=== PATIENT | female | born 1965 | race Caucasian/White ===

== ENCOUNTER 2016-12-27 22:42 | Inpatient (IN) | payer MEDICARE, MEDICAID ==
[2016-12-28] MEDS ORDERED: ASPIRIN 81 MG TABLET, CHEWABLE PO ONE (00:10)
[2016-12-28] MEDS ORDERED: MAG HYDROX/AL HYDROX/SIMETH SUSP 30 ML UDCUP PO ONE (00:12)
[2016-12-28] MEDS ORDERED: LIDOCAINE 2% VISCOUS SOLN 20 ML UDCUP PO ONE (00:12)
[2016-12-28] MEDS ORDERED: METOCLOPRAMIDE HCL ORAL SOLN 10 MG/10 ML UDCUP PO ONE (00:12)
--- NOTE | 2016-12-28 00:18 | ER Document Report ---
ED General - General Chief Complaint: Chest Pain Stated Complaint: UPPER BODY PAIN Mode of Arrival: Medic Information source: Patient Notes: Patient is a 51-year-old female with history of cerebral palsy and multiple medical problems who presents for evaluation of chest pain. History is somewhat limited secondary to difficulty understanding her speech secondary to her shoulder will cause a period however she does state that about 2-3 hours ago she developed central chest pain which radiated to her left shoulder while she was seated watching TV. No shortness of breath. She has had nausea and 2 episodes of vomiting. She does have some epigastric pain as well. She states that she quit smoking 2 weeks ago after the of her mother. Chart review demonstrates multiple ER visits over the past year for chest pain and a cardiac catheter in March 2015 that showed normal coronaries. She states that she has taken 1 aspirin today which is part of her daily medications. Her current pain level is 8 out of 10. TRAVEL OUTSIDE OF THE [place] IN LAST 30 DAYS: No - Related Data Allergies/Adverse Reactions: Iodinated Contrast Media - Oral and Allergy (Verified 09/13/16 19:12) ketorolac [From Toradol] Allergy (Verified 10/01/16 16:33) ondansetron [From Zofran (as hydrochloride)] Allergy (Verified 09/13/16 19:12) Sulfa (Sulfonamide Antibiotics) Allergy (Verified 09/13/16 19:12) sulfamethoxazole [From Septra] Allergy (Verified 09/13/16 19:12) trimethoprim [From Septra] Allergy (Verified 09/13/16 19:12) Past Medical History - General Information source: [facility] Records - Social History Smoking Status: Former Smoker Lives with: Family Family History: CAD, CVA, Other - arthritis - Past Medical History Cardiac Medical History: Reports: Hx Congestive Heart Failure, Hx Hypercholesterolemia, Hx Hypertension Pulmonary Medical History: Reports: Hx COPD, Hx Pneumonia - x2 Endocrine Medical History: Reports: Hx Hypothyroidism Renal/ Medical History: Reports: Hx Kidney Stones Malignancy Medical History: Reports: Hx Breast Cancer, Hx Lymphoma GI Medical History: Reports: Hx Gastroesophageal Reflux Disease Musculoskeltal Medical History: Reports Hx Arthritis Psychiatric Medical History: Reports: Hx Bipolar Disorder, Hx Depression Past Surgical History: Reports: Hx Appendectomy, Hx Genitourinary Surgery - Bladder tack, Hx Hysterectomy, Hx Kidney (Renal Surgery) - stone removal, Hx Tubal Ligation - Immunizations Immunizations up to date: Yes Hx Diphtheria, Pertussis, Tetanus Vaccination: Yes Hx Pneumococcal Vaccination: 10/05/09 Review of Systems - Review of Systems Constitutional: No symptoms reported. denies: Chills, Fever EENT: No symptoms reported Cardiovascular: See HPI Respiratory: See HPI. denies: Cough, Hurts to breathe, Hemoptysis, Short of breath Gastrointestinal: See HPI, Nausea, Vomiting Genitourinary: No symptoms reported. denies: Burning, Dysuria Musculoskeletal: No symptoms reported Skin: No symptoms reported Hematologic/Lymphatic: No symptoms reported Neurological/Psychological: No symptoms reported Physical Exam - Vital signs Vitals: Pulse Ox 98 12/27/16 23:00 - Notes Notes: PHYSICAL EXAMINATION: GENERAL: Well-appearing, well-nourished and in no acute distress. Pleasant and conversant, dysarthria baseline secondary to MS HEAD: Atraumatic, normocephalic. EYES: Pupils equal round and reactive to light, extraocular movements intact, sclera anicteric, conjunctiva are normal. ENT: nares patent, oropharynx clear without exudates. Moist mucous membranes. NECK: Normal range of motion, supple without lymphadenopathy LUNGS: Breath sounds clear to auscultation bilaterally and equal. No wheezes rales or rhonchi. HEART: Regular rate and rhythm without murmurs ABDOMEN: Soft, nontender, normoactive bowel sounds. No guarding, no rebound. No masses appreciated. EXTREMITIES: Normal range of motion, no pitting or edema. NEUROLOGICAL: Cranial nerves grossly intact. Moves all 4 extremities spontaneously and on command PSYCH: Normal mood, normal affect. SKIN: Warm, Dry, normal turgor, no rashes or lesions noted. Course - Re-evaluation Re-evalutation: 12/28/16 03:08 Patient reports increase in her chest pain now. I have ordered morphine for pain control and will repeat an EKG now. 12/28/16 07:18 Patient will be admitted for chest pain observation now that she is chest pain free. Her second troponin is negative and her EKG has remained without ischemic changes. - Vital Signs Vital signs: Temp Pulse Resp BP Pulse Ox 97.7 F 16 101/74 99 12/28/16 05:22 12/28/16 03:41 12/28/16 05:31 12/28/16 05:31 - Laboratory Result Diagrams: 12/28/16 00:06 12/28/16 01:03 Laboratory results interpreted by me: 12/28/16 12/28/16 00:06 01:03 RDW 14.6 H Eosinophils % 6.9 H Sodium 145.3 H Chloride 111 H AST 159 H ALT 158 H Alkaline Phosphatase 215 H - EKG Interpretation by Me Additional EKG results interpreted by me: 12/28/16 00:17 EKG at 2315 demonstrates normal sinus rhythm with a rate of 93. QRS and QTc intervals are within normal limits. There is no ST segment elevation or depression. 12/28/16 03:12 Repeat EKG at 0308 demonstrates normal sinus rhythm with a rate of 71. QRS and QTC intervals are within normal limits. There is no ST segment elevation or depression. There is no change from prior EKG this evening. Discharge - Discharge Clinical Impression: Transaminitis Chest pain Qualifiers: Chest pain type: unspecified Qualified Code(s): R07.9 - Chest pain, unspecified Admitting Provider: Hospitalist - Dr Rendon Unit Admitted: Telemetry
[2016-12-28 00:21] LABS: ABSOLUTE BASOPHILS # (AUTO) 0.1 10^3/uL (0.0-0.2); ABSOLUTE EOSINOPHILS # (AUTO) 0.4 10^3/uL (0.0-0.6); ABSOLUTE LYMPHOCYTES (AUTO) 1.7 10^3/uL (0.5-4.7); ABSOLUTE MONOCYTES (AUTO) 0.5 10^3/uL (0.1-1.4); BASOPHILS % (AUTO) 1.3 % (0-2); EOSINOPHILS % (AUTO) 6.9 % (0-6); HEMATOCRIT 37.7 % (36.0-47.0); HEMOGLOBIN 12.8 g/dL (12.0-15.5); HGB HCT DIFFERENCE 0.7; LYMPHOCYTES % (AUTO) 30.3 % (13-45); MEAN CORPUSCULAR HEMOGLOBIN 30.4 pg (27.0-33.4); MEAN CORPUSCULAR HGB CONC 33.8 g/dL (32.0-36.0); MEAN CORPUSCULAR VOLUME 90 fl (80-97); MONOCYTES % (AUTO) 9.3 % (3-13); RED BLOOD COUNT 4.19 10^6/uL (3.72-5.28); RED CELL DISTRIBUTION WIDTH 14.6 % (11.5-14.0); SEGMENTED NEUTROPHILS % (AUTO) 52.2 % (42-78); WHITE BLOOD COUNT 5.7 10^3/uL (4.0-10.5)
[2016-12-28 00:33] LABS: PROTHROMBIN TIME 12.8 SEC (11.4-15.4)
[2016-12-28 00:47] LABS: CREATINE KINASE MB 0.38 ng/mL (<4.55); TROPONIN I 0.018 ng/mL
[2016-12-28] MEDS ORDERED: PROMETHAZINE HCL INJ 25 MG/1 ML VIAL IV ONE (01:18)
[2016-12-28] MEDS ORDERED: OXYCODONE-ACETAMINOPHEN 5-325 MG TABLET PO ONE (01:19)
[2016-12-28 01:31] LABS: ALANINE AMINOTRANSFERASE 158 U/L (9-52); ALBUMIN 3.6 g/dL (3.5-5.0); ALKALINE PHOSPHATASE 215 U/L (38-126); ANION GAP 10 (5-19); ASPARTATE AMINO TRANSFERASE 159 U/L (14-36); BILIRUBIN,DIRECT 0.3 mg/dL (0.0-0.4); BILIRUBIN,TOTAL 0.3 mg/dL (0.2-1.3); BLOOD UREA NITROGEN 7 mg/dL (7-20); CALCIUM 9.4 mg/dL (8.4-10.2); CARBON DIOXIDE 24 mmol/L (22-30); CHLORIDE 111 mmol/L (98-107); CREATINE KINASE 47 U/L (30-135); GLUCOSE 100 mg/dL (75-110); POTASSIUM 3.9 mmol/L (3.6-5.0); SODIUM 145.3 mmol/L (137-145); TOTAL PROTEIN 6.3 g/dL (6.3-8.2)
[2016-12-28] MEDS ORDERED: PROMETHAZINE HCL INJ 25 MG/1 ML VIAL ONE ×2 (01:38→04:55)
[2016-12-28] MEDS ORDERED: NORMAL SALINE 1000 ML 1,000 ML IV ONE (02:43)
[2016-12-28] MEDS ORDERED: MORPHINE SULFATE 10 MG/ML INJ IV ONE (03:04)
[2016-12-28] MEDS ORDERED: MORPHINE SULFATE 10 MG/ML INJ ONE ×2 (03:05→04:44)
[2016-12-28] MEDS ORDERED: HYDROMORPHONE HCL INJ/PF 2 MG/ML AMPULE ONE (05:38)
[2016-12-28] MEDS ORDERED: HYDROMORPHONE HCL INJ/PF 2 MG/ML AMPULE IV ONE (05:40)
[2016-12-28] MEDS ORDERED: LORAZEPAM INJ 2 MG/1 ML VIAL IV ONE (05:58)
[2016-12-28] MEDS ORDERED: ACETAMINOPHEN 325 MG TABLET PO PRN (07:32)
--- NOTE | 2016-12-28 08:30 | PDOC H&P ---
History of Present Illness Admission Date/PCP: 12/28/16 06:27 [facility] [place] Patient complains of: Chest pain History of Present Illness: MARCO A SANCHEZ is a 51 year old female, with underlying cerebral palsy , and having suffered a prior stroke, with resulting right-sided weakness, who presents to the emergency room for evaluation of above complaint. Patient has been discussed with emergency room physician who evaluated the patient. Please refer to extensive documentation in the combination history and physical and discharge summary from November 02 of last year concerning patient seeking health care under more than 1 name and medical record number.. Please refer to emergency room physician's notes. Patient herself is a somewhat rambling historian . Approximately 2-3 hours prior to presentation to the emergency room, she developed central pressure-like chest pain that radiated to her left shoulder. Seem to increase with a deep breath or certain movements of her shoulder. No cough, or fever or chills. Nausea with 2 episodes of vomiting. Associated mild epigastric pain. Emergency room physician refers to multiple emergency room visits over the past year for chest pain and a reported negative heart catheterization in March 2015. Pain has been waxing and waning in the emergency room, with patient at some times denying pain altogether, and at other times stating that the pain has recurred. Patient admits to DVT in 1991, with physician subsequently stopping her systemic anticoagulation. Denies pulmonary embolus. Describes a seizure disorder, with her most recent episode 3 weeks ago. States she is on medication for same, but does not recall the specific medication. Denies any underlying biliary disease. Laboratory results are listed in [employer] and are reviewed. X-ray summary results are listed below, with full report(s) reviewed. . EKG's reviewed. Social history/personal habits: . Lives alone. On disability due to cerebral palsy. Half-pack of cigarettes per day. No alcohol or illicit drug use. Allergies/adverse reactions NKDA. Home medications Home medications initially autopopulated into [employer] may not accurately reflect patient's true medications, dosages, and/or frequencies. Unfortunately, patient uncertain of medications/dosages/frequencies. REVIEW OF SYSTEMS: Constitutional: No fever or chills. Eyes: Wears glasses. ENT: No swallowing problems or complaints. Partial hearing loss. Pulmonary: No current complaints. Cardiovascular: See history and present illness. Gastrointestinal: See history and present illness. Skin: No current complaints, including rashes. Hematologic: Easy bruising. Neurologic: Chronic decreased sensation in her lower extremities, right greater than left. Able to ambulate only with a walker Musculoskeletal: Joint pain from arthritis. Psychiatric: Anxiety depression; denies suicidal or homicidal ideation. Endocrine: No current complaints, including polyuria. Genitourinary: No current complaints, including dysuria. PHYSICAL EXAMINATION: Neither height nor weight are recorded on the chart. Temperature 97.7. Lipid pressure 111/79. 99% saturation on room air. Respirations are 20 and unlabored. Pulse 89 and regular. Female emergency room practical nursing teacher Amdiha is present. Outwardly well nourished though chronically ill-appearing female who appears a number of years older than her stated age. Rather anxious at times, although no marni agitation. Appears not to feel very well. Skin is warm and dry. No grossly obvious evidence of rash in areas of skin examined. No subcutaneous nodules palpated. ENT: Hearing grossly normal to normal conversation. Tongue midline on protrusion pink and slightly tacky. Mild to moderate speech impediment. Eyes: No scleral icterus. Pupils equal and reactive to light at 4 mm. [place] conjunctivae. No raccoon eyes. Neck is supple and nontender to gentle active range of motion and palpation. Midline trachea. No palpable thyroid nodule mass enlargement or tenderness. Lymphatic: No palpable cervical or clavicular nodes. Neck and lymphatic exams limited by patient body habitus. Psychiatric: Fair to reasonable insight into acute and chronic medical issues. Lungs: Auscultation reveals clear and equal breath sounds bilaterally. No use of accessory respiratory muscles. Cardiovascular: Heart regular rate and rhythm, without gallop murmur or rub. No carotid or abdominal aortic bruits. No ankle or pedal edema. palpable dorsalis pedis pulses. Abdomen: soft, slightly, distended nontender other than scant upper epigastric discomfort to palpation with positive bowel sounds. Unable to adequately evaluate abdomen for masses or organomegaly due to distention. Extremities: Feet are warm and dry. No calf tenderness to compression. No grossly obvious visual evidence of calf swelling. Gentle manipulation of lower extremities fails to reveal any obvious evidence of injury or instability to knees hips or ankles, although somewhat decreased range of motion, right lower extremity, due to combination of effects of prior stroke, along with cerebral palsy, per patient. Neurologic: Hand administrator pesticide 5 over 5 and symmetric. Moves upper extremities somewhat stiffly.. Patellar reflexes absent. Absent Babinski. Light touch is decreased at feet chronically, right > left.. Dorsiflexion and plantarflexion of left foot 5 / 5; plantar flexion of right foot 4 over 5 with minimal dorsiflexion. Past Medical History Cardiac Medical History: Reports: Congestive Heart Failure, DVT, Hyperlipidema, Hypertension Denies: Pulmonary Embolism Pulmonary Medical History: Reports: Chronic Obstructive Pulmonary Disease (COPD) , Pneumonia - x2 Neurological Medical History: Reports: Ischemic CVA - resulting right-sided weakness., Seizures, Other - cerebral palsy Endocrine Medical History: Reports: Hypothyroidism Denies: Diabetes Mellitus Type 1, Diabetes Mellitus Type 2, Hyperthyroidism Malignancy Medical History: Reports: Breast Cancer, Lymphoma GI Medical History: Reports: Gastroesophageal Reflux Disease Denies: Cirrhosis, Hepatitis Musculoskeltal Medical History: Reports: Arthritis Psychiatric Medical History: Reports: Bipolar Disorder, Depression, Tobacco Dependency Denies: Alcohol Dependency, Substance Abuse Infectious Medical History: Denies: Hepatitis B, Hepatitis C Past Surgical History Past Surgical History: Reports: Appendectomy, Hysterectomy, Tubal Ligation Social History Information Source: Patient, Emergency Med Personnel, [facility] Records Lives with: Alone Smoking Status: Current Every Day Smoker Frequency of Alcohol Use: None Hx Recreational Drug Use: No Hx Prescription Drug Abuse: No - Advance Directive Resuscitation Status: Full Code Surrogate healthcare decision maker:: uncertain Family History Family History: CAD, CVA, Other - arthritis Parental Family History Reviewed: Yes Children Family History Reviewed: Yes Sibling(s) Family History Reviewed.: Yes Medication/Allergy Home Medications: RX: Albuterol Sulfate [Proair HFA Inhalation Aerosol 8.5 gm MDI] 2 puff IH Q4HP PRN 12/28/16 RX: Gabapentin [Neurontin 300 mg Capsule] 300 mg PO TID 12/28/16 Melatonin/Pyridoxine HCl (B6) [Melatonin 10 mg Tablet] 1 each PO QHS #90 tab.mphase 01/03/17 RX: Alprazolam [Xanax 0.25 mg Tablet] 0.25 mg PO Q8 #30 tablet 01/03/17 RX: Aspirin [Ecotrin 81 mg EC Tablet] 81 mg PO DAILY #90 tabec 01/03/17 RX: Buspirone HCl [Buspar 10 mg Tablet] 10 mg PO TID #90 tablet 04/01/17 RX: Hydrocodone/Acetaminophen [[place] 5-325 mg Tablet] 1 tab PO Q4HP PRN #10 tablet 01/03/17 RX: Levothyroxine Sodium [Synthroid 0.05 mg Tablet] 0.05 mg PO DAILY tablet 10/21 Allergies/Adverse Reactions: Iodinated Contrast Media - Oral and Allergy (Verified 09/13/16 19:12) ketorolac [From Toradol] Allergy (Verified 12/28/16 07:54) ondansetron [From Zofran (as hydrochloride)] Allergy (Verified 09/13/16 19:12) Sulfa (Sulfonamide Antibiotics) Allergy (Verified 09/13/16 19:12) sulfamethoxazole [From Septra] Allergy (Verified 09/13/16 19:12) trimethoprim [From Septra] Allergy (Verified 09/13/16 19:12) Physical Exam Vital Signs: Temp Pulse Resp BP Pulse Ox 97.7 F 16 101/74 99 12/28/16 05:22 12/28/16 03:41 12/28/16 05:31 12/28/16 05:31 Results Impressions: Chest X-Ray 12/28/16 00:11 IMPRESSION: No acute radiographic finding in the chest. Abdomen Ultrasound 12/28/16 01:49 IMPRESSION: Contracted gallbladder with mild gallbladder wall thickening. Echogenic non-shadowing area within the gallbladder may represent artifact versus sludge. Positive sonographic Dickerson's sign, if clinical concern persists for acute cholecystitis, further evaluation with hepatobiliary scan can be obtained. Fatty infiltration of the liver. Assessment & Plan - Diagnosis (1) Abnormal ultrasound of abdomen Is this a current diagnosis for this admission?: YesPlan: Consider surgery consult. (2) Chest pain Qualifiers: Chest pain type: unspecified Qualified Code(s): R07.9 - Chest pain, unspecified Is this a current diagnosis for this admission?: YesPlan: Uncertain etiology or significance of same. Patient will be placed in observation bed under chest pain protocol. . Serial troponin's . lipid panel. Cardiology consult. I have strongly encouraged patient not to get out of bed without notifying staff , to avoid a fall with injury. Knee high SCDs for DVT prophylaxis. Along with subcutaneous heparin. Patient has been discussed in detail with daytime hospitalist team. Impression and plans were discussed with patient, who concurs. Time spent in evaluation and management of patient: 73 minutes. (3) Elevated LFTs Is this a current diagnosis for this admission?: Yes (4) COPD (chronic obstructive pulmonary disease) Qualifiers: COPD type: unspecified COPD Qualified Code(s): J44.9 - Chronic obstructive pulmonary disease, unspecified Is this a current diagnosis for this admission?: YesPlan: No evidence of acute exacerbation of same.Resume home medications as appropriate once these have been determined and reviewed. When necessary DuoNeb 's. (5) Hyperlipidemia Qualifiers: Hyperlipidemia type: unspecified Qualified Code(s): E78.5 - Hyperlipidemia, unspecified Is this a current diagnosis for this admission?: YesPlan: Lipid panel.Resume home medications as appropriate once these have been determined and reviewed. (6) Hypothyroid Qualifiers: Hypothyroidism type: unspecified Qualified Code(s): E03.9 - Hypothyroidism, unspecified Is this a current diagnosis for this admission?: YesPlan: TSH level. Resume home medications as appropriate once these have been determined and reviewed. (7) Personal history of DVT (deep vein thrombosis) Is this a current diagnosis for this admission?: Yes
[2016-12-28] MEDS ORDERED: NALOXONE HCL INJ/PF 0.4 MG/1 ML SDV IV PRN (08:33)
[2016-12-28] MEDS ORDERED: NICOTINE 14 MG/24 HR PATCH.TD24 TD PRN (08:50)
--- NOTE | 2016-12-28 08:51 | EKG REPORT ---
SEVERITY:- NORMAL ECG - SINUS RHYTHM : Confirmed by: Bridger Whitley MD 28-Dec-2016 08:51:10
--- NOTE | 2016-12-28 08:51 | EKG REPORT ---
SEVERITY:- BORDERLINE ECG - SINUS RHYTHM NONSPECIFIC ST-T CHANGES ANTEROSEPTAL LEADS : Confirmed by: Bridger Whitley MD 28-Dec-2016 08:51:00
--- NOTE | 2016-12-28 08:52 | EKG REPORT ---
SEVERITY:- NORMAL ECG - SINUS RHYTHM : Confirmed by: Bridger Whitley MD 28-Dec-2016 08:51:25
[2016-12-28] MEDS ORDERED: IPRATROPIUM/ALBUTEROL 0.5-2.5 MG/3 ML AMPUL NEB PRN (09:41)
[2016-12-28 10:03] LABS: APPEARANCE,URINE SLIGHTLY-CLOUDY; BILIRUBIN,URINE NEGATIVE (NEGATIVE); GLUCOSE, URINE NEGATIVE (NEGATIVE); KETONES,URINE NEGATIVE (NEGATIVE); LEUKOCYTE ESTERASE,URINE NEGATIVE (NEGATIVE); NITRITE,URINE NEGATIVE (NEGATIVE); PROTEIN,URINE NEGATIVE (NEGATIVE); UROBILINOGEN,URINE NEGATIVE mg/dL (<2.0)
[2016-12-28 10:18] LABS: URINE BARBITURATES SCREEN NEGATIVE; URINE METHADONE SCREEN NEGATIVE; URINE PHENCYCLIDINE SCREEN NEGATIVE
[2016-12-28 10:32] LABS: URINE OPIATES LOW UNCONFIRMED POSITIVE
[2016-12-28 10:48] LABS: ADD ON TESTING BLD IN LAB ACKNOWLEDGE
[2016-12-28 10:55] LABS: MAGNESIUM 1.9 mg/dL (1.6-2.3)
[2016-12-28 10:56] LABS: CHOLESTEROL 106.41 mg/dL (0-200); Direct HDL 32 mg/dL (>40); TRIGLYCERIDES 175 mg/dL (<150)
[2016-12-28 11:07] LABS: DIRECT LDL 49 mg/dL (<100)
[2016-12-28 11:08] LABS: ALCOHOL < 10 mg/dL (NONE DETECTED)
[2016-12-28] MEDS: ASPIRIN 81 MG TABLET, ENT COATED PO SCH (11:11)
[2016-12-28] MEDS: LEVOTHYROXINE SODIUM 0.05 MG TABLET PO SCH (11:11)
[2016-12-28] MEDS: HEPARIN SOD (PORCINE) 5,000 UNIT/ML 1 ML SYRINGE SUBCUT SCH ×2 (11:13→21:22)
[2016-12-28] MEDS ORDERED: ALBUTEROL SULFATE HFA (90 MCG/PUFF) 200 PUFF/8.5 GM MDI IH PRN (16:30)
[2016-12-28] MEDS ORDERED: IBUPROFEN 600 MG TABLET PO PRN (16:31)
[2016-12-28] MEDS ORDERED: ACETYLCYSTEINE INJ 6000 MG/30 ML IV PRN (16:32)
[2016-12-28] MEDS: LANSOPRAZOLE 30 MG TAB.RAP.DR PO SCH (16:49)
--- NOTE | 2016-12-28 16:49 | PDOC CONSULTATION ---
Consultation Consult Date: 12/28/16 Attending physician:: CIRO ARCHER Consult reason:: Chest pain History of Present Illness Admission Date/PCP: 12/28/16 07:40 Patient complains of: Chest pain History of Present Illness: MARCO A SANCHEZ is a 51 year old female, with underlying cerebral palsy , and having suffered a prior stroke, with resulting right-sided weakness, who presents to the emergency room for evaluation of above complaint. Please refer to extensive documentation in the combination history and physical and discharge summary from November 02 of last year concerning patient seeking health care under more than 1 name and medical record number.. Approximately 2-3 hours prior to presentation to the emergency room, she developed central pressure-like chest pain that radiated to her left shoulder. Seem to increase with a deep breath or certain movements of her shoulder. No cough, or fever or chills. Nausea with 2 episodes of vomiting. Associated mild epigastric pain. Emergency room physician refers to multiple emergency room visits over the past year for chest pain and a reported negative heart catheterization in March 2015. Pain has been waxing and waning in the emergency room, with patient at some times denying pain altogether, and at other times stating that the pain has recurred. Patient admits to DVT in 1991, with physician subsequently stopping her systemic anticoagulation. Denies pulmonary embolus. Describes a seizure disorder, with her most recent episode 3 weeks ago. States she is on medication for same, but does not recall the specific medication. Denies any underlying biliary disease. This history was reviewed and confirmed. In addition patient known to me from previous admission to [facility]. Patient was noted to have frequent admissions with chest pain and heart catheterization there were also negative for any significant disease. Patient chest pain is predominantly felt to be musculoskeletal with a lot of anxiety overlay. Past Medical History Cardiac Medical History: Reports: DVT, Hyperlipidema, Hypertension Denies: Pulmonary Embolism Pulmonary Medical History: Reports: Chronic Obstructive Pulmonary Disease (COPD) , Pneumonia - x2 Neurological Medical History: Reports: Ischemic CVA - resulting right-sided weakness., Seizures, Other - cerebral palsy Endocrine Medical History: Reports: Hypothyroidism Denies: Diabetes Mellitus Type 1, Diabetes Mellitus Type 2, Hyperthyroidism Malignancy Medical History: Reports: Breast Cancer, Lymphoma GI Medical History: Reports: Gastroesophageal Reflux Disease Denies: Cirrhosis, Hepatitis Musculoskeltal Medical History: Reports: Arthritis Psychiatric Medical History: Reports: Bipolar Disorder, Depression, Tobacco Dependency Denies: Alcohol Dependency, Substance Abuse Infectious Medical History: Denies: Hepatitis B, Hepatitis C Past Surgical History Past Surgical History: Reports: Appendectomy, Cardiac Catheterization, Hysterectomy, Tubal Ligation Social History Information Source: Patient Lives with: Alone Smoking Status: Current Every Day Smoker Frequency of Alcohol Use: None Hx Recreational Drug Use: No Drugs: None Hx Prescription Drug Abuse: No - Advance Directive Resuscitation Status: Full Code Surrogate healthcare decision maker:: Not identified by the patient Family History Family History: CAD, CVA, Other - arthritis Parental Family History Reviewed: Yes Children Family History Reviewed: Yes Sibling(s) Family History Reviewed.: Yes - Not premature Medication/Allergy Home Medications: Albuterol Sulfate [Proair HFA Inhalation Aerosol 8.5 gm MDI] 2 puff IH Q4HP PRN 12/28/16 Alprazolam [Xanax 0.5 mg Tablet] 0.5 mg PO TIDP PRN 12/28/16 Buspirone HCl [Buspar 10 mg Tablet] 10 mg PO TID 12/28/16 Gabapentin [Neurontin 300 mg Capsule] 300 mg PO TID 12/28/16 Paroxetine HCl [Paxil] 30 mg PO BID 12/28/16 Zolpidem Tartrate [Ambien] 10 mg PO QHS 12/28/16 Allergies/Adverse Reactions: Iodinated Contrast Media - Oral and Allergy (Verified 09/13/16 19:12) ketorolac [From Toradol] Allergy (Verified 12/28/16 07:54) ondansetron [From Zofran (as hydrochloride)] Allergy (Verified 09/13/16 19:12) Sulfa (Sulfonamide Antibiotics) Allergy (Verified 09/13/16 19:12) sulfamethoxazole [From Septra] Allergy (Verified 09/13/16 19:12) trimethoprim [From Septra] Allergy (Verified 09/13/16 19:12) Review of Systems Review of Systems: Please see history of present illness and past medical history as wall. Constitutional: No fever or chills reported. Head : No recent chronic headaches, recent head injury. Eyes: No recent eye pain, diplopia, redness, discharge, acute visual changes. Ears: No recent chronic ear pain, acute hearing loss, ear discharge. Oral cavity: No recent ulcerations, bleeding, oral cavity discomfort. Neck: No recent acute neck pain reported. Hematologic: No recent easy bruising or bleeding or hematologic malignancy reported. Lymphatic: No recent lymphatic malignancy, chronic lymphadenopathy reported yet Cardiovascular system review: See history of present illness. Respiratory system review: No recent chronic cough, hemoptysis, blood clots in the lungs reported. Mild Shortness of breath on exertion Gastrointestinal system review: Negative for any recent acute or chronic abdominal pain, hematemesis, melena, recent change in bowel habits. Genitourinary system review: No recent acute or chronic hematuria, flank pain, UTI etc. reported. Skin system review: Negative for any recent abnormal bruising, no rash, no pruritus reported. Neurologic: There is prior history of strokes, seizure disorder, cerebral palsy. Patient did describes chronic lower extremity weakness and some speech difficulty. Psychologic: No history of major psychosis or major depression reported. Patient describes history of depression and anxiety disorder. Musculoskeletal: Minor aches and pains reported. No acute joint swelling reported. Endocrine: No recent polyuria, polydipsia, recent heat or cold intolerance. Physical Exam Vital Signs: Temp Pulse Resp BP Pulse Ox 97.6 F 80 16 94/59 L 96 12/28/16 15:16 12/28/16 16:19 12/28/16 16:19 12/28/16 15:16 12/28/16 16:19 Intake & Output 12/27/16 12/28/16 12/29/16 06:59 06:59 06:59 Intake Total 120 Output Total 300 Balance -180 Weight 58.2 kg Exam: GENERAL: well-nourished and in no acute distress. Alert and oriented x3 HEAD: Atraumatic, normocephalic. EYES: Pupils equal round and reactive to light, extraocular movements intact, sclera anicteric, conjunctiva are normal. ENT: TMs normal, nares patent, oropharynx clear without exudates. Moist mucous membranes. No oral ulcerations or bleeding gums noted NECK: supple without lymphadenopathy. Trachea is central. No cervical or axillary lymphadenopathy noted. Carotids are 2+, JVD WNL LUNGS: Respiration seems nonlabored, no significant accessory muscle action noted. Breath sounds clear to auscultation bilaterally and equal noted. No wheezes rales or rhonchi noted. No significant dullness noted on percussion. CHEST: Palpation of the chest wall shows significant diffuse chest wall tenderness. No other significant abnormalities noted. HEART: [place] [employer], No PSH, 1/6 PHANI aortic area, 1/6 lovett systolic murmur mitral area, no rubs, no gallops. ABDOMEN: Soft, no significant tenderness appreciated, normoactive bowel sounds. No guarding, no rebound. No rigidity noted . No masses appreciated. EXTREMITIES: Pedal pulses are 1-2+, no calf tenderness noted. No clubbing or cyanosis.trace to 1+ pedal edema noted NEUROLOGICAL: Focused neurological exam showed findings indicative of cerebral palsy affecting lower extremity, some speech difficulty, no sensory deficit appreciated. PSYCH: Normal mood, normal affect. Judgment and insight not checked today SKIN: No significant ecchymosis, rash, ulcerations or signs of pruritus noted. MUSCULOSKELETAL EXAM: No significant joint swelling noted. Results Laboratory Results: 12/28/16 12/28/16 09:30 12:12 TSH 3.27 Urine Color YELLOW Urine Appearance SLIGHTLY-CLOUDY Urine pH 5.0 Ur Specific [place] 1.010 Urine Protein NEGATIVE Urine Glucose (UA) NEGATIVE Urine Ketones NEGATIVE Urine Blood SMALL H Urine Nitrite NEGATIVE Ur Leukocyte Esterase NEGATIVE Urine WBC (Auto) 2 Urine RBC (Auto) 4 12/28/16 10:12 Troponin I < 0.012 EKG Comments: Sinus rhythm, no acute ST-T wave changes are noted. Impressions: KUB X-Ray 12/28/16 00:00 IMPRESSION: NO RADIOGRAPHIC EVIDENCE FOR ACUTE ABDOMINAL DISEASE. Mild constipation. Chest X-Ray 12/28/16 00:11 IMPRESSION: No acute radiographic finding in the chest. Abdomen Ultrasound 12/28/16 01:49 IMPRESSION: Contracted gallbladder with mild gallbladder wall thickening. Echogenic non-shadowing area within the gallbladder may represent artifact versus sludge. Positive sonographic Dickerson's sign, if clinical concern persists for acute cholecystitis, further evaluation with hepatobiliary scan can be obtained. Fatty infiltration of the liver. Assessment & Plan - Diagnosis (1) Chest pain Qualifiers: Chest pain type: unspecified Qualified Code(s): R07.9 - Chest pain, unspecified Is this a current diagnosis for this admission?: Yes (2) COPD (chronic obstructive pulmonary disease) Qualifiers: COPD type: unspecified COPD Qualified Code(s): J44.9 - Chronic obstructive pulmonary disease, unspecified Is this a current diagnosis for this admission?: Yes (3) Cigarette smoker two packs a day or less Is this a current diagnosis for this admission?: Yes (4) Elevated LFTs Is this a current diagnosis for this admission?: Yes - Notes Notes: Chest pain: So far cardiac enzymes and EKGs has been negative. Previous heart catheter was negative. Patient is a poor historian. It may be worthwhile to obtain previous cardiac catheter reports. Recommend repeating EKGs while having active chest pain. Evaluate alternative causes of chest pain. COPD: Currently stable. Patient has been advised to quit smoking. Tobacco abuse: Patient has been advised to quit smoking. Elevated liver function test: agree with obtaining ultrasound of the liver, gallbladder and upper abdomen to evaluate chest pain and also abnormal liver function tests. Amylase has been negative. Cholecystitis: This is being suspected. Will leave management plans to table inspector and surgeon. - Time Time Spent: 30 to 50 Minutes - CODE STATUS was discussed, patient remains full code. Surrogate decision-maker not identified. Multiple medical problems were addressed.More than 50% of the time spent coordinating care, discussing management plans with involved caregivers. Management plans discussed with involved personnels. Medical decision making was of moderate complexity.
[2016-12-28] MEDS: GABAPENTIN 300 MG CAPSULE PO SCH (16:57)
[2016-12-28] MEDS ORDERED: ACETYLCYSTEINE INJ 6000 MG/30 ML IV ONE (17:30)
[2016-12-28] MEDS ORDERED: ACETYLCYSTEINE IV ONE ×3 (18:00→23:00)
[2016-12-28] MEDS ORDERED: WATER IV ONE ×3 (18:00→23:00)
[2016-12-28] MEDS ORDERED: DEXTROSE 5% IV ONE ×3 (18:00→23:00)
[2016-12-28] MEDS ORDERED: ALPRAZOLAM 0.25 MG TABLET PO PRN (19:34)
--- NOTE | 2016-12-28 20:56 | PDOC PROGRESS REPORT ---
Subjective Progress Note for:: 12/28/16 Subjective:: Patient seen today on morning rounds. Patient complains of pain despite slurred speech. Nursing reports patient calls out every few minutes for pain medication, but is often asleep. Patient locked herself in her bathroom. Patient was then found a bottle of Ambien. This was taken from her and patient was found to have 5 tabs left from a prescription filled 12/25/2016. This also contained a blue ovoid pill with the inscription [id number], which is discovered to be Xanax 1 mg tablets. Review of patient on the [place] controlled substance reporting system reveals that patient does not have a prescription for this particular dosage of medication, although having been on Xanax in the past. Physical Exam Vital Signs: Temp Pulse Resp BP Pulse Ox 97.7 F 10 L 101/77 99 12/28/16 05:22 12/28/16 08:03 12/28/16 08:03 12/28/16 08:03 Exam: General: Awake alert and oriented X2, no acute respiratory distress HEENT: AT/NC, PERRL, EOMI, oropharynx is moist, pink, no scleral icterus, no conjunctival injection Neck: No JVD, trachea midline Chest: Clear to auscultation bilaterally, no wheezes rhonchi or rales CV: Regular rate and rhythm, normal S1 and S2, no murmur, rub, or gallop Abdomen: Soft, diffuse mild tenderness to palpation, nondistended, diminished bowel sounds; no rebound, rigidity, or guarding Extremities: No cyanosis, clubbing or edema Neuro: Slurred speech, evidence of cerebral palsy Psych: Normal mood and affect Results Impressions: Chest X-Ray 12/28/16 00:11 IMPRESSION: No acute radiographic finding in the chest. Abdomen Ultrasound 12/28/16 01:49 IMPRESSION: Contracted gallbladder with mild gallbladder wall thickening. Echogenic non-shadowing area within the gallbladder may represent artifact versus sludge. Positive sonographic Dickerson's sign, if clinical concern persists for acute cholecystitis, further evaluation with hepatobiliary scan can be obtained. Fatty infiltration of the liver. Assessment & Plan - Diagnosis (1) Abnormal ultrasound of abdomen Is this a current diagnosis for this admission?: YesPlan: Patient with a slightly thickened gallbladder. Patient is found on KUB to be constipated. Patient does not describe any weight loss or worsening pain after eating. Will obtain a HIDA scan in the morning, and if positive will consult surgery. (2) Chest pain Qualifiers: Chest pain type: unspecified Qualified Code(s): R07.9 - Chest pain, unspecified Is this a current diagnosis for this admission?: YesPlan: We'll place Motrin for chest pain. Have discussed case with Dr. ortiz of cardiology who reports that patient has had a negative cardiac catheterization in the past, and is known to him from multiple admissions and consistent in the past for chest pain. (3) Benzodiazepine dependence Is this a current diagnosis for this admission?: YesPlan: Will continue patient on low-dose Xanax as I feel patient has likely been abusing this medication and will like to prevent seizure. (4) Elevated LFTs Is this a current diagnosis for this admission?: YesPlan: We'll check a Tylenol level and if this is negative will still consider the use of acetylcysteine given patient's markedly abnormal LFTs concern for chronic Tylenol toxicity due to her known behavior of abusing medication. Patient appears to be getting small prescriptions for either Percocet or Vicodin quite regularly from multiple different physicians in [facility] over the period of the last several months. Have considered and still expressed concern for ascending cholangitis. Will also check hepatitis panel and HIV. CK and TSH. (5) Noncompliance Is this a current diagnosis for this admission?: YesPlan: Patient appears to be misusing her Ambien, and upon review of patient's documentation from 11/02/2015 patient has sought medical care in our facility under multiple names and dates of as well as other facilities. Will place sitter for patient and contact APS as I feel that given patient's advanced age that she may require a caregiver and/or guardian for her healthcare. Will consult psychology for capacity. (6) COPD (chronic obstructive pulmonary disease) Qualifiers: COPD type: unspecified COPD Qualified Code(s): J44.9 - Chronic obstructive pulmonary disease, unspecified Is this a current diagnosis for this admission?: YesPlan: Nebulized treatments as needed (7) Cigarette smoker two packs a day or less Is this a current diagnosis for this admission?: YesPlan: Nicotine patch if needed (8) Hyperlipidemia Qualifiers: Hyperlipidemia type: unspecified Qualified Code(s): E78.5 - Hyperlipidemia, unspecified Is this a current diagnosis for this admission?: YesPlan: Continue statin. Check CK (9) Hypothyroid Qualifiers: Hypothyroidism type: unspecified Qualified Code(s): E03.9 - Hypothyroidism, unspecified Is this a current diagnosis for this admission?: YesPlan: Continue Synthroid. Check TSH (10) Constipation due to opioid therapy Is this a current diagnosis for this admission?: YesPlan: Place patient on Colace and senna. Give one-time dose of Dulcolax. (11) Opiate dependence Qualifiers: Substance use status: with intoxication Is this a current diagnosis for this admission?: YesPlan: Patient's behavior is difficult to ascertain, but have concern that patient is currently intoxicated leading to her unusual behavior. We will have sitter watch patient and will monitor for signs of withdrawal. - Time Time Spent with patient: 35 or more minutes Medications reviewed and adjusted accordingly: Yes
[2016-12-28] MEDS ORDERED: BISACODYL 5 MG TABEC PO ONE (21:00)
[2016-12-28] MEDS ORDERED: PROMETHAZINE HCL INJ 25 MG/1 ML VIAL IV PRN (22:10)
[2016-12-29] MEDS: SENNOSIDES/DOCUSATE 8.6-50 MG 1 EACH TABLET PO SCH ×2 (00:24→21:41)
[2016-12-29] MEDS: PAROXETINE HCL 20 MG TABLET PO SCH ×2 (00:44→21:39)
[2016-12-29] MEDS: BUSPIRONE HCL 10 MG TABLET PO SCH ×4 (00:45→21:39)
[2016-12-29] MEDS: LANSOPRAZOLE 30 MG TAB.RAP.DR PO SCH ×2 (05:32→17:24)
[2016-12-29 06:30] LABS: ABSOLUTE BASOPHILS # (AUTO) 0.1 10^3/uL (0.0-0.2); ABSOLUTE EOSINOPHILS # (AUTO) 0.2 10^3/uL (0.0-0.6); ABSOLUTE LYMPHOCYTES (AUTO) 1.4 10^3/uL (0.5-4.7); ABSOLUTE MONOCYTES (AUTO) 0.5 10^3/uL (0.1-1.4); ABSOLUTE NEUT (AUTO) 4.2 10^3/uL (1.7-8.2); BASOPHILS % (AUTO) 1.1 % (0-2); HEMATOCRIT 38.7 % (36.0-47.0); HEMOGLOBIN 13.1 g/dL (12.0-15.5); HGB HCT DIFFERENCE 0.6; MEAN CORPUSCULAR HEMOGLOBIN 30.5 pg (27.0-33.4); MEAN CORPUSCULAR HGB CONC 33.8 g/dL (32.0-36.0); MEAN CORPUSCULAR VOLUME 90 fl (80-97); MONOCYTES % (AUTO) 7.5 % (3-13); RED CELL DISTRIBUTION WIDTH 14.8 % (11.5-14.0); SEGMENTED NEUTROPHILS % (AUTO) 66.4 % (42-78); WHITE BLOOD COUNT 6.4 10^3/uL (4.0-10.5)
[2016-12-29 06:36] LABS: PROTHROMBIN TIME 13.9 SEC (11.4-15.4)
[2016-12-29 06:37] LABS: PARTIAL THROMBOPLASTIN TIME 48.7 SEC (23.5-35.8)
[2016-12-29 06:51] LABS: ANION GAP 9 (5-19); BLOOD UREA NITROGEN 7 mg/dL (7-20); CALCIUM 9.4 mg/dL (8.4-10.2); CARBON DIOXIDE 23 mmol/L (22-30); CHLORIDE 111 mmol/L (98-107); CREATININE RESULT 0.53 mg/dL (0.52-1.25); GLUCOSE 84 mg/dL (75-110); MAGNESIUM 1.9 mg/dL (1.6-2.3); POTASSIUM 4.1 mmol/L (3.6-5.0); SODIUM 143.2 mmol/L (137-145)
[2016-12-29 06:57] LABS: PREALBUMIN 15.3 mg/dL (17.6-36.0)
[2016-12-29 07:31] LABS: ADD HIVPANEL? NO; HIV (1 AND 2) ANTIBODY NEGATIVE (NEGATIVE)
[2016-12-29] MEDS: HEPARIN SOD (PORCINE) 5,000 UNIT/ML 1 ML SYRINGE SUBCUT SCH ×2 (11:31→21:40)
[2016-12-29] MEDS: DOCUSATE SODIUM 100 MG CAPSULE PO SCH ×2 (11:33→17:24)
[2016-12-29] MEDS: LEVOTHYROXINE SODIUM 0.05 MG TABLET PO SCH (11:33)
[2016-12-29] MEDS: ASPIRIN 81 MG TABLET, ENT COATED PO SCH (11:33)
[2016-12-29] MEDS: GABAPENTIN 300 MG CAPSULE PO SCH ×3 (11:33→17:24)
--- NOTE | 2016-12-29 13:59 | Physician Advisory Note ---
Physician Advisor ProgressNote .: Pursuant to the plan for [facility], I have reviewed the medical record for this patient. Physician Advisor Statement: Challenging pt, to say the least! Possible documentation opportunities if attending agrees: 1. "elevated LFTs, suspect due to ____" [chronic acetaminophen toxicity, acute cholecystitis, fatty liver, ascending cholangitis, or a combination] - need explicit 2. "CP, suspect due to " 3. "hypernatremia, likely due to intravascular volume depletion realted to ____ _" 4. "[reported] Chronic ___[syst/diast??] CHF" 5. "fatty liver" 6. ? - "Rt hemiparesis" 7. "suspected protein-calorie malnutrition [state mild, mod, or severe] with BMI 25, prealbumin 15.3, ____[?wt loss, ?appetite loss, ]" [if possible, give specifics on intake, wt loss, loss of SQ fat & muscle mass, diminished hand pedodontist strength, & clinical importance such as (A) nutritional assessment ordered, (B) modified diet or supplements ordered, (C) additional labs ordered, (D) prolonged wound healing time, (E) delayed infxn clearance] As always, if concerned about any unstable VS or abnormal labs, please comment on them & note what doing about them, & please document each day the potential clinical problems you are concerned could occur if pt not kept in hospital for tx at this time. Discussion: 51yo female w/ very complex medical hx [with aliases & repeated presentations for care, with changing PMH reports] possibly including cerebral palsy, chronic dysarthria due to ___, past CVA w/Rt sided weakness/?hemiplegia, chronic pain, chronic opioid dependence, polypharmacy, tobacco dependence, chronic __ CHF, HTN , COPD, hypothyroidism, breast CA, lymphoma, GERD, bipolar d/o, depression, DVT 1991, sz d/o w/last episode 3 wks prior, repeated ED visits w/CP complaints, past nl cath 2014 - presented 3 to ED w/CP, N/V/epigastric pain. (+) HR98, BP 97/75, RR15, Na 145.3, newly elevated LFTs AST 159, ALT 158, AP 215 , U/S = ?sludge, fatty liver, (+)sono Dickerson's, UDS (+)benzo/op (though pt without known Rx for benzodiazepines), KUB=constip. ED gave ASA, Ativan, Dilaudid, NS bolus, morphine, oxycodone, IV Phenergan, po Reglan, Attending ordered prn IV PHenergan, I/Os, tele, sz precautions, Tylenol level, prn Ibuprofen, acetylcysteine IV x3, prn Narcan, colace, Senna/docusate hs, prn Xanax, then sitter, PICC line, HIDA scan Status: Pt initially appropriately Obs for CP. However, found to have new transaminase elevations concerning for acute or chronic acetaminophen toxicity, along with epigastric pain/GB sludge/(+)sono Dickerson's sign concerning for acute cholecystitis. She has called out every few minutes for pain meds despite apparent sedation, then been found with Ambien & Xanax not Rx'd here, appearing to be self-medicating on top of what was being given here [taken from her in AM] , & later found to have pills on floor she reported were Ambien & Xanax, requiring a sitter for her safety. Although she denied desire to harm herself, she has clearly put herself at risk for adverse events, & has continued to do so since arrival, and attending has appropriately involved psych consult & APS, with concern for need for guardian. These issues will not be able to be managed in less than 2 MNs of hospital care, and likely may take significantly longer than that. Meanwhile, despite a reported underlying HTN, and receiving no BP meds since arrival, she has had recurrent hypotension to systolic 90s ( max was 142/95, once) since arrival, as well as bradypnea down to 10 twice on . She remains at risk for withdrawal problems from opiates & benzodiazepines. Tx in inpatient hospital setting medically reasonable & necessary to protect pt' s health, safety, & medical condition. Appropriate for Inpt status. Thanks for your help with documentation accuracy/specificity improvement! Erma Land MD [facility] Physician Advisor, Fellow of Hospital Medicine
[2016-12-29] MEDS ORDERED: NORMAL SALINE 10 ML SDV (AFTER EACH USE) IV PRN (14:20)
--- NOTE | 2016-12-29 15:57 | EKG REPORT ---
SEVERITY:- NORMAL ECG - SINUS RHYTHM : Confirmed by: Lamin Auguste 29-Dec-2016 15:56:19
[2016-12-29 16:17] LABS: ALANINE AMINOTRANSFERASE 130 U/L (9-52); ALKALINE PHOSPHATASE 173 U/L (38-126); ASPARTATE AMINO TRANSFERASE 88 U/L (14-36); BILIRUBIN,DIRECT 0.2 mg/dL (0.0-0.4); BILIRUBIN,TOTAL 0.4 mg/dL (0.2-1.3); TOTAL PROTEIN 5.7 g/dL (6.3-8.2)
[2016-12-29] MEDS ORDERED: PIPERACILLIN SODIUM/TAZOBACTAM 3.375 GM in NORMAL SALINE 100 ML IV ONE (20:30)
[2016-12-29] MEDS: NORMAL SALINE 10 ML SDV (SCHEDULED) IV SCH (21:40)
[2016-12-30] MEDS: PIPERACILLIN SODIUM/TAZOBACTAM 3.375 GM in NORMAL SALINE 100 ML IV SCH ×4 (03:18→20:29)
[2016-12-30] MEDS: LANSOPRAZOLE 30 MG TAB.RAP.DR PO SCH ×2 (05:35→18:16)
[2016-12-30] MEDS: BUSPIRONE HCL 10 MG TABLET PO SCH ×3 (05:35→21:23)
[2016-12-30] MEDS: HEPARIN SOD (PORCINE) 5,000 UNIT/ML 1 ML SYRINGE SUBCUT SCH ×2 (10:42→21:25)
[2016-12-30] MEDS: NORMAL SALINE 10 ML SDV (SCHEDULED) IV SCH ×2 (10:43→21:23)
[2016-12-30] MEDS: GABAPENTIN 300 MG CAPSULE PO SCH ×3 (10:44→18:16)
[2016-12-30] MEDS: ASPIRIN 81 MG TABLET, ENT COATED PO SCH (10:44)
[2016-12-30] MEDS: LEVOTHYROXINE SODIUM 0.05 MG TABLET PO SCH (10:44)
[2016-12-30] MEDS: DOCUSATE SODIUM 100 MG CAPSULE PO SCH ×2 (11:51→18:16)
[2016-12-30] MEDS ORDERED: NORMAL SALINE 1000 ML 1,000 ML IV PRN (14:45)
--- NOTE | 2016-12-30 17:07 | PSYCHOLOGICAL NOTE ---
Psych Note - Psych Note Psych Note: Patient a 51 year old female, with underlying cerebral palsy, and having suffered a prior stroke, and [facility] due to chest pains. Patient was referred for consultation after she reported some depression. Patient today is pleasant and states her mother very recently. She states she is having an extremely difficult time coping, and each day is a struggle. She states that physically hurts how much she misses her. She states she hasn't moved from [place] where she lived with her mother to [place] to live with a cousin. Patient states she does have numerous family members to include children and grandchildren and she herself is a to her who a few years ago. Patient adamant she is not experiencing any thoughts of harming herself, and openly discusses she did consider suicide after her mother patient reports she has had a cardiac workup and she does not know what the chest pain is from. She states they are thinking of removing her gallbladder tonight and that her children are coming from [place] to be with her for the surgery. Patient states she goes to [facility], but reports she has been prescribed Paxil for 15-16 years as well as BuSpar for about 2 years. She states she no longer finds these medications efficacious in managing her depressive symptoms. Patient identifies her depressive symptoms were prior to the of her and mother, and include sadness, tearfulness, not wanting to go out and do things/get out of bed, etc. Discussed with Hospitalist's patient's needs, who reported concerns for patient' s substance abuse of her prescription pills. MD states patient requests copious amounts of pain medications, and was found in the bathroom with a bottle of Ambien and a Xanax pill for a dose not prescribed to her per the Narcotics Database. Additionally, MD noted "upon review of patient's documentation from 11/02/2015 patient has sought medical care in our facility under multiple names and dates of as well as other facilities." Patient is alert and oriented. Mood is sad at times when talking about her mother with tearful affect, but is also pleasant and engaging. Patient denies suicidal/homicidal ideations, intent, plan, means. Patient denies A/VH; delusions not noted. Thought processes were organized. Conversational speech was WNL for this patient intellectual abilities were estimated within average range. Attention and focus were good. Insight, judgment, impulse control were good. Major depressive disorder per history Cerebral palsy R/O prescription pill abuse Patient does not meet criteria for involuntary commitment per the [place] general statute 120 2C as she denies suicidal/homicidal ideations. Patient does acknowledge she is experiencing increase sadness and tearfulness likely exasperated by the grief over the of her mother. Pt reports she no longer feels her Paxil and BuSpar are effective and would like them changed if possible. Patient does state she has a psychiatric provider and will continue treatment upon her discharge from this or another facility. Patient states her psychiatrist is scheduling her for counseling to assist her in coping with her elevated emotions, as well as explore SA assessment and services.
[2016-12-30 18:35] LABS: PROTHROMBIN TIME 12.2 SEC (11.4-15.4)
--- NOTE | 2016-12-30 18:54 | PDOC PROGRESS REPORT ---
Subjective Progress Note for:: 12/30/16 Subjective:: Patient reports to me at this time that she has a problem with benzodiazepine and opiate dependence. She reports that she would like to seek help with this. She had multiple life stressors including loss of her mother. Patient denies chest pain, shortness of breath, abdominal pain, nausea, vomiting , fevers, chills, diarrhea, constipation, headache, new onset weakness. Physical Exam Vital Signs: Temp Pulse Resp BP Pulse Ox 98.5 F 67 16 122/73 97 12/29/16 04:42 12/29/16 07:00 12/29/16 04:42 12/29/16 04:42 12/29/16 04:42 Intake & Output 12/28/16 12/29/16 12/30/16 06:59 06:59 06:59 Intake Total 970 Output Total 900 Balance 70 Weight 58.2 kg Exam: General: Awake alert and oriented x3, no acute respiratory distress HEENT: AT/NC, PERRL, EOMI, oropharynx is moist, pink, no scleral icterus, no conjunctival injection Neck: No JVD, trachea midline Chest: Clear to auscultation bilaterally, no wheezes rhonchi or rales CV: Regular rate and rhythm, normal S1 and S2, no murmur, rub, or gallop Abdomen: Soft, nontender to palpation, nondistended, active bowel sounds; no rebound, rigidity, or guarding Extremities: No cyanosis, clubbing or edema Neuro: Cranial nerves II through XII are grossly intact without focal deficits; awake alert and oriented x3 Psych: Normal mood and affect Results Laboratory Results: 12/29/16 04:55 12/29/16 04:55 12/28/16 12/28/16 12/29/16 09:30 12:12 04:55 WBC RBC Hgb Hct MCV MCH MCHC RDW Plt Count Seg Neutrophils % Lymphocytes % Monocytes % Eosinophils % Basophils % Absolute Neutrophils Absolute Lymphocytes Absolute Monocytes Absolute Eosinophils Absolute Basophils Sodium 143.2 Potassium 4.1 Chloride 111 H Carbon Dioxide 23 Anion Gap 9 BUN 7 Creatinine 0.53 Est GFR ( Amer) > 60 Est GFR (Non-Af Amer) > 60 Glucose 84 Calcium 9.4 Magnesium 1.9 Prealbumin 15.3 L TSH 3.27 Urine Color YELLOW Urine Appearance SLIGHTLY-CLOUDY Urine pH 5.0 Ur Specific [place] 1.010 Urine Protein NEGATIVE Urine Glucose (UA) NEGATIVE Urine Ketones NEGATIVE Urine Blood SMALL H Urine Nitrite NEGATIVE Ur Leukocyte Esterase NEGATIVE Urine WBC (Auto) 2 Urine RBC (Auto) 4 12/29/16 04:55 WBC 6.4 RBC 4.30 Hgb 13.1 Hct 38.7 MCV 90 MCH 30.5 MCHC 33.8 RDW 14.8 H Plt Count 181 Seg Neutrophils % 66.4 Lymphocytes % 22.0 Monocytes % 7.5 Eosinophils % 3.0 Basophils % 1.1 Absolute Neutrophils 4.2 Absolute Lymphocytes 1.4 Absolute Monocytes 0.5 Absolute Eosinophils 0.2 Absolute Basophils 0.1 Sodium Potassium Chloride Carbon Dioxide Anion Gap BUN Creatinine Est GFR ( Amer) Est GFR (Non-Af Amer) Glucose Calcium Magnesium Prealbumin TSH Urine Color Urine Appearance Urine pH Ur Specific [place] Urine Protein Urine Glucose (UA) Urine Ketones Urine Blood Urine Nitrite Ur Leukocyte Esterase Urine WBC (Auto) Urine RBC (Auto) 12/28/16 12/28/16 12/28/16 10:12 16:50 16:50 Creatine Kinase 117 Troponin I < 0.012 < 0.012 Impressions: KUB X-Ray 12/28/16 00:00 IMPRESSION: NO RADIOGRAPHIC EVIDENCE FOR ACUTE ABDOMINAL DISEASE. Mild constipation. Chest X-Ray 12/28/16 00:11 IMPRESSION: No acute radiographic finding in the chest. Abdomen Ultrasound 12/28/16 01:49 IMPRESSION: Contracted gallbladder with mild gallbladder wall thickening. Echogenic non-shadowing area within the gallbladder may represent artifact versus sludge. Positive sonographic Dickerson's sign, if clinical concern persists for acute cholecystitis, further evaluation with hepatobiliary scan can be obtained. Fatty infiltration of the liver. Assessment & Plan - Diagnosis (1) Abnormal ultrasound of abdomen Is this a current diagnosis for this admission?: YesPlan: Currently pending hydroscan and if this is positive we will consult surgical service. Initiate patient on Zosyn pending results. (2) Chest pain Qualifiers: Chest pain type: unspecified Qualified Code(s): R07.9 - Chest pain, unspecified Is this a current diagnosis for this admission?: YesPlan: Secondary to her underlying gallbladder dyskinesia. Have discussed case with Dr. ortiz of cardiology who reports that patient has had a negative cardiac catheterization in the past, and is known to him from multiple admissions and consistent in the past for chest pain. (3) Benzodiazepine dependence Is this a current diagnosis for this admission?: YesPlan: Will continue patient on low-dose Xanax to prevent seizure. (4) Elevated LFTs Is this a current diagnosis for this admission?: YesPlan: Admits to overusing able recent prescription of Tylenol-containing medication. Patient has completed 3 bag acetylcysteine protocol. Concern and have considered ascending cholangitis. Will continue to monitor clinically. (5) COPD (chronic obstructive pulmonary disease) Qualifiers: COPD type: unspecified COPD Qualified Code(s): J44.9 - Chronic obstructive pulmonary disease, unspecified Is this a current diagnosis for this admission?: Yes (6) Cigarette smoker two packs a day or less Is this a current diagnosis for this admission?: Yes (7) Hyperlipidemia Qualifiers: Hyperlipidemia type: unspecified Qualified Code(s): E78.5 - Hyperlipidemia, unspecified Is this a current diagnosis for this admission?: Yes (8) Hypothyroid Qualifiers: Hypothyroidism type: unspecified Qualified Code(s): E03.9 - Hypothyroidism, unspecified Is this a current diagnosis for this admission?: YesPlan: TSH is normal. Continue current Synthroid dose (9) Constipation due to opioid therapy Is this a current diagnosis for this admission?: YesPlan: Improved (10) Opiate dependence Qualifiers: Substance use status: with intoxication Is this a current diagnosis for this admission?: YesPlan: Will attempt to control this patient's symptoms as she has uncomplicated withdrawal. Attempt to avoid these medications for her. Will consult psychology for medication recommendations and for resources as an outpatient. Have encouraged her to discuss this with her father. (11) Noncompliance Is this a current diagnosis for this admission?: Yes (12) Protein calorie malnutrition Is this a current diagnosis for this admission?: YesPlan: Patient has a prealbumin of 15.3. Once taking better orally will initiate patient on supplementation. - Time Time Spent with patient: 35 or more minutes Medications reviewed and adjusted accordingly: Yes
--- NOTE | 2016-12-30 19:03 | CONSULTATION REPORT E ---
Consultation Report NAME: MARCO A SANCHEZ : 1965 AGE: 51Y DATE: 12/30/2016 419 A TO: MELLISA BURGOS M.D. FROM: CIRO ARCHER M.D. 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 Occasionally, it occurrs postprandially. The patient underwent an ultrasound of the gallbladder demonstrating sludge with possible stones as well as a HIDA scan demonstrating decreased ejection fraction of the gallbladder (13%). I have been consulted to evaluate this patient for possible laparoscopic cholecystectomy. On interview, the patient appears to be alert and oriented and able to respond appropriately to questions. She reports the pain being present in the epigastrium and right upper quadrant particularly postprandial, and she is very adamant about the presence of the pain. PAST MEDICAL HISTORY: Significant for: 1. Congestive heart failure. 2. DVT. 3. Hyperlipidemia. 4. Hypertension. 5. COPD. 6. Pneumonia x2. 7. Ischemic stroke with right-sided weakness. 8. Hypothyroidism. 9. History of left breast cancer. 10. GERD. 11. Degenerative joint disease. 12. Bipolar disorder. 13. Depression. 14. Alcohol, tobacco, and drug abuse. ALLERGIES: The patient has allergy to: 1. IODINE CONTRAST. 2. KETOROLAC. 3. ZOFRAN. 4. SULFA. SOCIAL HISTORY: The patient admits to abuse of alcohol, drugs, and tobacco. MEDICATIONS: The patient is currently taking the following medications: 1. Heparin subcutaneous 4000 units q.12. 2. Ibuprofen 600 mg p.o. q.8 p.r.n. pain. 3. Prevacid 30 mg p.o. twice a day. 4. Nicoderm patch 14 mg/24 hours. 5. Paroxetine 50 mg p.o. at bedtime. 6. Zosyn 3.375 g IV piggyback q.6. 7. Promethazine 10.1 mg IV q.6. 8. Colace 2 tablets p.o. at bedtime. 9. Normal saline IV fluids. REVIEW OF LABORATORIES: Hepatitis screen for A, B and C hepatitis and HIV is negative. CBC is normal. White blood cell count is 6, H and H 13 and 38, platelet count 188. INR within normal limits. PTT is elevated at 48.7 as of 12/29/2016. Electrolytes, BUN and creatinine all within normal limits. Liver profile shows a normal total bilirubin of 0.4 with an elevated AST, ALT, alkaline phosphatase (88, 130, and 117, respectively). Urinalysis within normal limits. Urine toxicology screen significant for opiates, benzodiazepine. KUB done on 12/28/2016 shows no acute intra-abdominal findings. Ultrasound right upper quadrant shows a contracted gallbladder with mild gallbladder wall thickening, presence of gallbladder sludge and positive sonographic Dikcerson sign. Hepatobiliary scan done on 12/28/2016 shows low gallbladder ejection fraction approximately 13% as per biliary dyskinesia. No pain reproduced by CCK injection PHYSICAL EXAMINATION: GENERAL: The patient is alert and oriented x3 and responds appropriately to questions. HEENT: VII-XII cranial nerves are normal. Patient is edentulous. NECK: Supple. LUNGS: Clear bilaterally. CHEST: Symmetric bilaterally. HEART: Regular rhythm and rate. ABDOMEN: Flat, soft. Tender in the epigastrium and right upper quadrant. EXTREMITIES: Spasticity mainly in the lower extremities. NEUROLOGIC SYSTEM: Spasticity identified in the lower extremities. SKIN: Warm, dry, intact without lesions. ASSESSMENT AND PLAN: 1. Epigastric and right upper quadrant pain mainly postprandial. 2. Ultrasound of the gallbladder shows a contracted gallbladder with thickened wall and filled with sludge and positive Dickerson sign. Hepatobiliary scan demonstrates a gallbladder with low ejection fraction about 13%. KUB of the abdomen is negative. 3. Liver profile within normal limits. 4. Physical examination unremarkable for right upper quadrant pain on deep palpation. 5. Elevated PTT, for reasons unknown. If the repeated PTT is elevated, I will consult with the hospitalist to identify the cause of it. The small amount of subcutaneous heparin as well as the heparin injected into her krysta-cath might be the cause of the elevated PTT. PLAN: 1. Repeat PTT, PT/INR due to elevated PTT from yesterday. 2. I discussed the case with the hospitalist and she agrees with my assessment. PTT to rechecked, and, if it is elevated, the patient will have to undergo reversal with fresh frozen plasma prior to surgery tomorrow. 3. Plan to perform laparoscopic cholecystectomy and possible open and possible cholangiogram for chronic symptomatic cholecystitis with sludge (? gallstones) 4. The procedure, risks, benefits, and complications including bleeding from the liver and/or injury to the common bile duct have been discussed with the patient. She understands all the above and decides to proceed. DICTATING PHYSICIAN: MELLISA BURGOS M.D. [id number] PHY#: [id number] ID: [id number] JOB#: [id number] ACCT: [id number] cc:MELLISA BURGOS M.D. > MTDD
[2016-12-30] MEDS: SENNOSIDES/DOCUSATE 8.6-50 MG 1 EACH TABLET PO SCH (21:23)
[2016-12-30] MEDS: PAROXETINE HCL 20 MG TABLET PO SCH (21:23)
[2016-12-30] MEDS ORDERED: MORPHINE SULFATE 10 MG/ML INJ IV PRN (22:00)
--- NOTE | 2016-12-30 22:01 | PDOC PROGRESS REPORT ---
Subjective Progress Note for:: 12/30/16 Subjective:: Patient does report some postprandial abdominal pain. Patient denies chest pain, shortness of breath, nausea, vomiting, fevers, chills , diarrhea, constipation, headache, new onset weakness. Physical Exam Vital Signs: Temp Pulse Resp BP Pulse Ox 98.6 F 73 16 109/72 93 12/30/16 15:22 12/30/16 17:34 12/30/16 17:34 12/30/16 15:22 12/30/16 17:34 Intake & Output 12/29/16 12/30/16 12/31/16 06:59 06:59 06:59 Intake Total 1680 830 Output Total 1400 400 Balance 280 430 Exam: General: Awake alert and oriented x3, no acute respiratory distress HEENT: AT/NC, PERRL, EOMI, oropharynx is moist, pink, no scleral icterus, no conjunctival injection Neck: No JVD, trachea midline Chest: Clear to auscultation bilaterally, no wheezes rhonchi or rales CV: Regular rate and rhythm, normal S1 and S2, no murmur, rub, or gallop Abdomen: Soft, mild right upper quadrant tenderness, nondistended, active bowel sounds; no rebound, rigidity, or guarding Extremities: No cyanosis, clubbing or edema Neuro: Cranial nerves II through XII are grossly intact without focal deficits; awake alert and oriented x3 Psych: Normal mood and affect Results Impressions: Hepatobiliary Scan Nuclear Medicine 12/28/16 00:00 IMPRESSION: LOW GALLBLADDER EJECTION FRACTION. EVIDENCE FOR BILIARY DYSKINESIS. NO CYSTIC OR COMMON DUCT OBSTRUCTION. KUB X-Ray 12/28/16 00:00 IMPRESSION: NO RADIOGRAPHIC EVIDENCE FOR ACUTE ABDOMINAL DISEASE. Mild constipation. Chest X-Ray 12/28/16 00:11 IMPRESSION: No acute radiographic finding in the chest. Abdomen Ultrasound 12/28/16 01:49 IMPRESSION: Contracted gallbladder with mild gallbladder wall thickening. Echogenic non-shadowing area within the gallbladder may represent artifact versus sludge. Positive sonographic Dickerson's sign, if clinical concern persists for acute cholecystitis, further evaluation with hepatobiliary scan can be obtained. Fatty infiltration of the liver. Guidance Fluoroscopy 12/29/16 00:00 IMPRESSION: SUCCESSFUL PLACEMENT OF A 5 FR DUAL LUMEN 40 CM PICC IN THE left basilic VEIN. Interventional Vascular Procedure 12/29/16 00:00 IMPRESSION: SUCCESSFUL PLACEMENT OF A 5 FR DUAL LUMEN 40 CM PICC IN THE left basilic VEIN. PICC Line Insertion 12/29/16 00:00 IMPRESSION: SUCCESSFUL PLACEMENT OF A 5 FR DUAL LUMEN 40 CM PICC IN THE left basilic VEIN. Assessment & Plan - Diagnosis (1) Acute acalculous cholecystitis Is this a current diagnosis for this admission?: YesPlan: Patient currently on Zosyn. Patient is pending surgical evaluation for appropriateness for surgical intervention. (2) Chest pain Qualifiers: Chest pain type: unspecified Qualified Code(s): R07.9 - Chest pain, unspecified Is this a current diagnosis for this admission?: YesPlan: Secondary to her underlying gallbladder dyskinesia. Have discussed case with Dr. Gaspar of cardiology who reports that patient has had a negative cardiac catheterization in the past, and is known to him from multiple admissions. (3) Benzodiazepine dependence Is this a current diagnosis for this admission?: YesPlan: Will continue patient on low-dose Xanax to prevent seizure. (4) Elevated LFTs Is this a current diagnosis for this admission?: YesPlan: Admits to overusing able recent prescription of Tylenol-containing medication. Patient has completed 3 bag acetylcysteine protocol. Have considered ascending cholangitis. Will continue to monitor clinically. (5) COPD (chronic obstructive pulmonary disease) Qualifiers: COPD type: unspecified COPD Qualified Code(s): J44.9 - Chronic obstructive pulmonary disease, unspecified Is this a current diagnosis for this admission?: YesPlan: Nebulized treatments as needed (6) Cigarette smoker two packs a day or less Is this a current diagnosis for this admission?: YesPlan: Nicotine patch if needed (7) Hyperlipidemia Qualifiers: Hyperlipidemia type: unspecified Qualified Code(s): E78.5 - Hyperlipidemia, unspecified Is this a current diagnosis for this admission?: Yes (8) Hypothyroid Qualifiers: Hypothyroidism type: unspecified Qualified Code(s): E03.9 - Hypothyroidism, unspecified Is this a current diagnosis for this admission?: YesPlan: TSH is normal. Continue current Synthroid dose (9) Constipation due to opioid therapy Is this a current diagnosis for this admission?: YesPlan: Improved (10) Opiate dependence Qualifiers: Substance use status: with intoxication Is this a current diagnosis for this admission?: Yes (11) Noncompliance Is this a current diagnosis for this admission?: Yes (12) Protein calorie malnutrition Is this a current diagnosis for this admission?: Yes - Time Time Spent with patient: 25-34 minutes Medications reviewed and adjusted accordingly: Yes Anticipated discharge: Home Within: within 48 hours
[2016-12-31] MEDS: PIPERACILLIN SODIUM/TAZOBACTAM 3.375 GM in NORMAL SALINE 100 ML IV SCH ×4 (02:58→22:12)
[2016-12-31 05:53] LABS: ABSOLUTE BASOPHILS # (AUTO) 0.1 10^3/uL (0.0-0.2); ABSOLUTE EOSINOPHILS # (AUTO) 0.2 10^3/uL (0.0-0.6); ABSOLUTE LYMPHOCYTES (AUTO) 1.1 10^3/uL (0.5-4.7); ABSOLUTE MONOCYTES (AUTO) 0.4 10^3/uL (0.1-1.4); BASOPHILS % (AUTO) 1.4 % (0-2); EOSINOPHILS % (AUTO) 5.8 % (0-6); HEMATOCRIT 32.7 % (36.0-47.0); HGB HCT DIFFERENCE 0.3; LYMPHOCYTES % (AUTO) 29.4 % (13-45); MEAN CORPUSCULAR HEMOGLOBIN 30.4 pg (27.0-33.4); MEAN CORPUSCULAR HGB CONC 33.8 g/dL (32.0-36.0); MEAN CORPUSCULAR VOLUME 90 fl (80-97); MONOCYTES % (AUTO) 11.5 % (3-13); RED BLOOD COUNT 3.64 10^6/uL (3.72-5.28); RED CELL DISTRIBUTION WIDTH 14.4 % (11.5-14.0); SEGMENTED NEUTROPHILS % (AUTO) 51.9 % (42-78); WHITE BLOOD COUNT 3.8 10^3/uL (4.0-10.5)
[2016-12-31 06:03] LABS: ANION GAP 8 (5-19); BLOOD UREA NITROGEN 7 mg/dL (7-20); CALCIUM 8.8 mg/dL (8.4-10.2); CARBON DIOXIDE 23 mmol/L (22-30); CHLORIDE 112 mmol/L (98-107); CREATININE RESULT 0.77 mg/dL (0.52-1.25); GLUCOSE 93 mg/dL (75-110); SODIUM 143.2 mmol/L (137-145)
[2016-12-31] MEDS: BUSPIRONE HCL 10 MG TABLET PO SCH ×3 (06:04→22:12)
[2016-12-31] MEDS: LANSOPRAZOLE 30 MG TAB.RAP.DR PO SCH ×2 (06:04→18:32)
[2016-12-31] MEDS ORDERED: ACETAMINOPHEN 325 MG TABLET PO PRN (08:00)
[2016-12-31 08:32] LABS: ALANINE AMINOTRANSFERASE 159 U/L (9-52); ALBUMIN 2.6 g/dL (3.5-5.0); ALKALINE PHOSPHATASE 208 U/L (38-126); ASPARTATE AMINO TRANSFERASE 147 U/L (14-36); BILIRUBIN,DIRECT 0.2 mg/dL (0.0-0.4); BILIRUBIN,TOTAL 0.4 mg/dL (0.2-1.3)
[2016-12-31] MEDS ORDERED: PEG 3350/NA SULF,BICARB,CL/KCL 4000 ML PO ONE (09:30)
[2016-12-31] MEDS: ASPIRIN 81 MG TABLET, ENT COATED PO SCH (10:06)
[2016-12-31] MEDS: DOCUSATE SODIUM 100 MG CAPSULE PO SCH (10:07)
[2016-12-31] MEDS: LEVOTHYROXINE SODIUM 0.05 MG TABLET PO SCH (10:07)
[2016-12-31] MEDS: GABAPENTIN 300 MG CAPSULE PO SCH ×3 (10:07→18:32)
[2016-12-31] MEDS: NORMAL SALINE 10 ML SDV (SCHEDULED) IV SCH ×2 (10:08→22:13)
[2016-12-31] MEDS ORDERED: LORAZEPAM INJ 2 MG/1 ML VIAL ONE (13:43)
[2016-12-31] MEDS ORDERED: LORAZEPAM INJ 2 MG/1 ML VIAL IV PRN (14:11)
[2016-12-31] MEDS: HEPARIN SOD (PORCINE) 5,000 UNIT/ML 1 ML SYRINGE SUBCUT SCH ×2 (15:33→22:13)
[2016-12-31] MEDS ORDERED: ALPRAZOLAM 0.25 MG TABLET PO ONE (17:30)
[2016-12-31] MEDS ORDERED: MORPHINE SULFATE 10 MG/ML INJ IV ONE (18:00)
[2016-12-31] MEDS ORDERED: CLONIDINE 0.1 MG/24 HR PATCH.TDWK TD SCH (18:00)
[2016-12-31] MEDS ORDERED: SCOPOLAMINE HYDROBROMIDE 1.5 MG PATCH.TD72 TD ONE (18:00)
--- NOTE | 2016-12-31 18:03 | PDOC PROGRESS REPORT ---
Subjective Progress Note for:: 12/31/16 Subjective:: Patient has been seen by surgery and they have elected to give her a colonoscopy and upper endoscopy tomorrow. Patient currently having diarrhea due to a bowel prep. Admits to abdominal discomfort and nausea. Patient denies chest pain, shortness of breath, vomiting, fevers, chills, diarrhea, constipation, headache, new onset weakness. Physical Exam Vital Signs: Temp Pulse Resp BP Pulse Ox 98.2 F 81 20 142/90 H 97 12/31/16 16:04 12/31/16 16:04 12/31/16 16:04 12/31/16 16:04 12/31/16 16:04 Intake & Output 12/30/16 12/31/16 01/01/17 06:59 06:59 06:59 Intake Total 1680 3338 Output Total 1400 1500 Balance 280 1838 Exam: General: Awake alert and oriented x3, no acute respiratory distress HEENT: AT/NC, PERRL, EOMI, oropharynx is moist, pink, no scleral icterus, no conjunctival injection Neck: No JVD, trachea midline Chest: Clear to auscultation bilaterally, no wheezes rhonchi or rales CV: Regular rate and rhythm, normal S1 and S2, no murmur, rub, or gallop Abdomen: Soft, mild right upper quadrant tenderness, nondistended, active bowel sounds; no rebound, rigidity, or guarding Extremities: No cyanosis, clubbing or edema Neuro: Cranial nerves II through XII are grossly intact without focal deficits; awake alert and oriented x3 Psych: Normal mood and affect Results Laboratory Results: 12/31/16 05:20 12/31/16 05:20 12/31/16 12/31/16 12/31/16 05:20 05:20 05:20 WBC 3.8 L RBC 3.64 L Hgb 11.0 L D Hct 32.7 L MCV 90 MCH 30.4 MCHC 33.8 RDW 14.4 H Plt Count 145 L Seg Neutrophils % 51.9 Lymphocytes % 29.4 Monocytes % 11.5 Eosinophils % 5.8 Basophils % 1.4 Absolute Neutrophils 2.0 Absolute Lymphocytes 1.1 Absolute Monocytes 0.4 Absolute Eosinophils 0.2 Absolute Basophils 0.1 Sodium 143.2 Potassium 4.0 Chloride 112 H Carbon Dioxide 23 Anion Gap 8 BUN 7 Creatinine 0.77 Est GFR ( Amer) > 60 Est GFR (Non-Af Amer) > 60 Glucose 93 Calcium 8.8 Total Bilirubin 0.4 AST 147 H ALT 159 H Alkaline Phosphatase 208 H Total Protein 5.0 L Albumin 2.6 L Impressions: Hepatobiliary Scan Nuclear Medicine 12/28/16 00:00 IMPRESSION: LOW GALLBLADDER EJECTION FRACTION. EVIDENCE FOR BILIARY DYSKINESIS. NO CYSTIC OR COMMON DUCT OBSTRUCTION. Chest X-Ray 12/28/16 00:11 IMPRESSION: No acute radiographic finding in the chest. Abdomen Ultrasound 12/28/16 01:49 IMPRESSION: Contracted gallbladder with mild gallbladder wall thickening. Echogenic non-shadowing area within the gallbladder may represent artifact versus sludge. Positive sonographic Dickerson's sign, if clinical concern persists for acute cholecystitis, further evaluation with hepatobiliary scan can be obtained. Fatty infiltration of the liver. Guidance Fluoroscopy 12/29/16 00:00 IMPRESSION: SUCCESSFUL PLACEMENT OF A 5 FR DUAL LUMEN 40 CM PICC IN THE left basilic VEIN. Interventional Vascular Procedure 12/29/16 00:00 IMPRESSION: SUCCESSFUL PLACEMENT OF A 5 FR DUAL LUMEN 40 CM PICC IN THE left basilic VEIN. PICC Line Insertion 12/29/16 00:00 IMPRESSION: SUCCESSFUL PLACEMENT OF A 5 FR DUAL LUMEN 40 CM PICC IN THE left basilic VEIN. KUB X-Ray 12/31/16 13:53 IMPRESSION: NO RADIOGRAPHIC EVIDENCE FOR ACUTE ABDOMINAL DISEASE. Assessment & Plan - Diagnosis (1) Acute acalculous cholecystitis Is this a current diagnosis for this admission?: YesPlan: Patient currently on Zosyn. At this time, have concern for ascending cholangitis in light of her elevated LFTs and ongoing abdominal pain. (2) Opiate withdrawal Is this a current diagnosis for this admission?: YesPlan: Patient currently with significant signs of opiate withdrawal including excessive rhinorrhea, lacrimation, diarrhea, and dysphoria. Will place clonidine patch and give a dose of morphine now. (3) Chest pain Qualifiers: Chest pain type: unspecified Qualified Code(s): R07.9 - Chest pain, unspecified Is this a current diagnosis for this admission?: YesPlan: Secondary to her underlying gallbladder dyskinesia. Have discussed case with Dr. Gaspar of cardiology who reports that patient has had a negative cardiac catheterization in the past, and is known to him from multiple admissions. (4) Benzodiazepine dependence Is this a current diagnosis for this admission?: YesPlan: Patient currently having an element of opiate and benzodiazepine withdrawal. Scheduled Xanax to prevent seizure. (5) Elevated LFTs Is this a current diagnosis for this admission?: YesPlan: Admits to overusing able recent prescription of Tylenol-containing medication. Patient has completed 3 bag acetylcysteine protocol. Concerned for considered ascending cholangitis. (6) COPD (chronic obstructive pulmonary disease) Qualifiers: COPD type: unspecified COPD Qualified Code(s): J44.9 - Chronic obstructive pulmonary disease, unspecified Is this a current diagnosis for this admission?: YesPlan: Nebulized treatments as needed (7) Cigarette smoker two packs a day or less Is this a current diagnosis for this admission?: Yes (8) Hyperlipidemia Qualifiers: Hyperlipidemia type: unspecified Qualified Code(s): E78.5 - Hyperlipidemia, unspecified Is this a current diagnosis for this admission?: Yes (9) Hypothyroid Qualifiers: Hypothyroidism type: unspecified Qualified Code(s): E03.9 - Hypothyroidism, unspecified Is this a current diagnosis for this admission?: YesPlan: TSH is normal. Continue current Synthroid dose (10) Opiate dependence Qualifiers: Substance use status: with intoxication Is this a current diagnosis for this admission?: Yes (11) Noncompliance Is this a current diagnosis for this admission?: Yes (12) Protein calorie malnutrition Is this a current diagnosis for this admission?: YesPlan: Patient has a prealbumin of 15.3. Once taking better orally will initiate patient on supplementation. - Time Time Spent with patient: 35 or more minutes Medications reviewed and adjusted accordingly: Yes
[2016-12-31] MEDS: IPRATROPIUM BROMIDE 0.06% NASAL SPRAY 15 ML NASL SCH (18:33)
[2016-12-31] MEDS: METOCLOPRAMIDE HCL INJ/PF 10 MG/2 ML SDV IV SCH (18:34)
[2016-12-31] MEDS: IPRATROPIUM/ALBUTEROL 0.5-2.5 MG/3 ML AMPUL NEB SCH (20:25)
--- NOTE | 2016-12-31 20:48 | PROGRESS NOTE E ---
Progress Note NAME: MARCO A SANCHEZ : 1965 AGE: 51Y DATE: 12/31/2016 ROOM: 419 The patient is a 51-year-old female who has been having a year history of intermittent right upper quadrant pain that has now become fairly constant every day. She had severe chest pain yesterday and was admitted to the hospital. Any cardiac issue has been ruled out. She does smoke and uses alcohol along with having COPD as risk factors for PUD. She denies any history of ulcers. The pain gets better with having a bowel movement. It does not seem to be affected with eating. She has been having loose stools up to 4 a day for several months now. She has been on antibiotics in the past. Her last colonoscopy was 5 years ago, and she reports it to be normal. SUBJECTIVE: She has minimal epigastric and right upper quadrant pain at the current time. OBJECTIVE: The patient's abdomen is minimally tender in the epigastric region. No hernias. DIAGNOSTIC DATA: Hepatobiliary scan shows ejection fraction of 17%. Ultrasound of gallbladder having sludge vs artifact. Her white blood cell count is 3.8, hemoglobin 11. AST 147, ALT 159, alkaline phosphatase of 208, total bilirubin 0.4, direct 0.2. Hepatitis panel is normal along with C. difficile toxin. ASSESSMENT: EPIGASTRIC AND RIGHT UPPER QUADRANT ABDOMINAL PAIN OF UNKNOWN ETIOLOGY. She does have some risk factors for peptic ulcer disease having alcohol and tobacco use. She also has chronic diarrhea. I would recommend first upper and lower endoscopy to rule out peptic ulcer disease and also to evaluate the colon and to obtain multiple biopsies. This would rule out microscopic colitis, etc. If this is normal, then consideration for laparoscopic cholecystectomy along with intraoperative cholangiogram and liver biopsy. PLAN: 1. Bowel prep. 2. Upper and lower endoscopy with multiple biopsies. She is on heparin for DVTs, and this does raise her risk slightly for bleeding in which care will be needed for those procedures. DICTATING PHYSICIAN: NEGRA DENISE M.D. [id number] PHY#: [id number] ID: [id number] JOB#: [id number] ACCT: [id number] cc: > MTDD
[2016-12-31] MEDS: ALPRAZOLAM 0.25 MG TABLET PO SCH (22:12)
[2016-12-31] MEDS: POTASSI CL 20 MEQ/D5-1/2NS 1L 1,000 ML IV PRN (22:13)
[2016-12-31] MEDS: PAROXETINE HCL 20 MG TABLET PO SCH (22:13)
[2017-01-01] MEDS: METOCLOPRAMIDE HCL INJ/PF 10 MG/2 ML SDV IV SCH ×2 (00:05→05:14)
[2017-01-01] MEDS: PIPERACILLIN SODIUM/TAZOBACTAM 3.375 GM in NORMAL SALINE 100 ML IV SCH ×4 (03:55→21:35)
[2017-01-01] MEDS: ALPRAZOLAM 0.25 MG TABLET PO SCH ×3 (05:14→21:35)
[2017-01-01] MEDS: BUSPIRONE HCL 10 MG TABLET PO SCH ×3 (05:14→21:35)
[2017-01-01] MEDS: LANSOPRAZOLE 30 MG TAB.RAP.DR PO SCH ×2 (05:14→17:29)
[2017-01-01 05:32] LABS: ABSOLUTE BASOPHILS # (AUTO) 0.1 10^3/uL (0.0-0.2); ABSOLUTE EOSINOPHILS # (AUTO) 0.2 10^3/uL (0.0-0.6); ABSOLUTE MONOCYTES (AUTO) 0.4 10^3/uL (0.1-1.4); ABSOLUTE NEUT (AUTO) 3.2 10^3/uL (1.7-8.2); BASOPHILS % (AUTO) 1.2 % (0-2); EOSINOPHILS % (AUTO) 4.7 % (0-6); HEMATOCRIT 32.1 % (36.0-47.0); HGB HCT DIFFERENCE 0.9; LYMPHOCYTES % (AUTO) 20.8 % (13-45); MEAN CORPUSCULAR HEMOGLOBIN 30.6 pg (27.0-33.4); MEAN CORPUSCULAR HGB CONC 34.3 g/dL (32.0-36.0); MEAN CORPUSCULAR VOLUME 89 fl (80-97); MONOCYTES % (AUTO) 8.2 % (3-13); RED CELL DISTRIBUTION WIDTH 14.2 % (11.5-14.0); SEGMENTED NEUTROPHILS % (AUTO) 65.1 % (42-78); WHITE BLOOD COUNT 4.9 10^3/uL (4.0-10.5)
[2017-01-01 05:38] LABS: PROTHROMBIN TIME 13.7 SEC (11.4-15.4)
[2017-01-01 05:39] LABS: PARTIAL THROMBOPLASTIN TIME 36.6 SEC (23.5-35.8)
[2017-01-01 05:41] LABS: ALANINE AMINOTRANSFERASE 142 U/L (9-52); ALBUMIN 2.8 g/dL (3.5-5.0); ALKALINE PHOSPHATASE 206 U/L (38-126); ANION GAP 8 (5-19); ASPARTATE AMINO TRANSFERASE 93 U/L (14-36); BILIRUBIN,DIRECT 0.2 mg/dL (0.0-0.4); BILIRUBIN,TOTAL 0.5 mg/dL (0.2-1.3); BLOOD UREA NITROGEN 3 mg/dL (7-20); CALCIUM 8.9 mg/dL (8.4-10.2); CARBON DIOXIDE 24 mmol/L (22-30); CHLORIDE 111 mmol/L (98-107); CREATININE RESULT 0.64 mg/dL (0.52-1.25); GLUCOSE 112 mg/dL (75-110); LIPASE 32.3 U/L (23-300); MAGNESIUM 1.6 mg/dL (1.6-2.3); PHOSPHORUS 3.7 mg/dL (2.5-4.5); POTASSIUM 3.7 mmol/L (3.6-5.0); SODIUM 143.2 mmol/L (137-145); TOTAL PROTEIN 5.1 g/dL (6.3-8.2)
[2017-01-01] MEDS: IPRATROPIUM/ALBUTEROL 0.5-2.5 MG/3 ML AMPUL NEB SCH ×3 (08:54→19:46)
--- NOTE | 2017-01-01 09:44 | PDOC PROGRESS REPORT ---
Subjective Progress Note for:: 01/01/17 Subjective:: Complain of some lower abdominal pain. Physical Exam Vital Signs: Temp Pulse Resp BP Pulse Ox 98.2 F 77 17 169/92 H 100 01/01/17 08:01 01/01/17 08:01 01/01/17 05:08 01/01/17 08:01 01/01/17 08:01 Intake & Output 12/31/16 01/01/17 01/02/17 06:59 06:59 06:59 Intake Total 3338 3075 Output Total 1500 500 Balance 1838 2575 General appearance: PRESENT: no acute distress, cooperative Respiratory exam: PRESENT: clear to auscultation ashia Cardiovascular exam: PRESENT: RRR GI/Abdominal exam: PRESENT: other - Soft, nondistended, mild diffuse abdominal tenderness to palpation with no peritoneal signs. Results Laboratory Results: 01/01/17 05:20 01/01/17 05:20 01/01/17 01/01/17 05:20 05:20 WBC 4.9 RBC 3.60 L Hgb 11.0 L Hct 32.1 L MCV 89 MCH 30.6 MCHC 34.3 RDW 14.2 H Plt Count 147 L Seg Neutrophils % 65.1 Lymphocytes % 20.8 Monocytes % 8.2 Eosinophils % 4.7 Basophils % 1.2 Absolute Neutrophils 3.2 Absolute Lymphocytes 1.0 Absolute Monocytes 0.4 Absolute Eosinophils 0.2 Absolute Basophils 0.1 Sodium 143.2 Potassium 3.7 Chloride 111 H Carbon Dioxide 24 Anion Gap 8 BUN 3 L Creatinine 0.64 Est GFR ( Amer) > 60 Est GFR (Non-Af Amer) > 60 Glucose 112 H Calcium 8.9 Phosphorus 3.7 Magnesium 1.6 Total Bilirubin 0.5 AST 93 H ALT 142 H Alkaline Phosphatase 206 H Total Protein 5.1 L Albumin 2.8 L Lipase 32.3 Impressions: Hepatobiliary Scan Nuclear Medicine 12/28/16 00:00 IMPRESSION: LOW GALLBLADDER EJECTION FRACTION. EVIDENCE FOR BILIARY DYSKINESIS. NO CYSTIC OR COMMON DUCT OBSTRUCTION. Chest X-Ray 12/28/16 00:11 IMPRESSION: No acute radiographic finding in the chest. Abdomen Ultrasound 12/28/16 01:49 IMPRESSION: Contracted gallbladder with mild gallbladder wall thickening. Echogenic non-shadowing area within the gallbladder may represent artifact versus sludge. Positive sonographic Dickerson's sign, if clinical concern persists for acute cholecystitis, further evaluation with hepatobiliary scan can be obtained. Fatty infiltration of the liver. Guidance Fluoroscopy 12/29/16 00:00 IMPRESSION: SUCCESSFUL PLACEMENT OF A 5 FR DUAL LUMEN 40 CM PICC IN THE left basilic VEIN. Interventional Vascular Procedure 12/29/16 00:00 IMPRESSION: SUCCESSFUL PLACEMENT OF A 5 FR DUAL LUMEN 40 CM PICC IN THE left basilic VEIN. PICC Line Insertion 12/29/16 00:00 IMPRESSION: SUCCESSFUL PLACEMENT OF A 5 FR DUAL LUMEN 40 CM PICC IN THE left basilic VEIN. KUB X-Ray 12/31/16 13:53 IMPRESSION: NO RADIOGRAPHIC EVIDENCE FOR ACUTE ABDOMINAL DISEASE. Assessment & Plan - Diagnosis (1) Abdominal pain Is this a current diagnosis for this admission?: YesPlan: Patient has had a long history of postprandial upper abdominal pain and chest pains. Studies are remarkable for a diminished gallbladder ejection fraction, possible gallbladder sludge and the elevations of her transaminases. Patient states that she has never had an upper endoscopy. This certainly seems reasonable to do an upper endoscopy prior to laparoscopic cholecystectomy in a patient with atypical chest pain. Patient's diarrhea may be related with opioid withdrawal but also reasonable to proceed with colonoscopy since she does have some lower abdominal pain as well.. She underwent successful bowel prep yesterday. Will proceed with the upper endoscopy and colonoscopy. If the endoscopic workup is negative will have her undergo laparoscopic cholecystectomy tomorrow. Patient understands risk and benefits of the endoscopic procedure including risk of bleeding and intestinal injury.
[2017-01-01] MEDS: MAGNESIUM SULFATE/D5W 100 ML IV SCH ×2 (10:05→11:18)
[2017-01-01] MEDS: LEVOTHYROXINE SODIUM 0.05 MG TABLET PO SCH (10:07)
[2017-01-01] MEDS: GABAPENTIN 300 MG CAPSULE PO SCH ×3 (10:07→17:29)
[2017-01-01] MEDS: NORMAL SALINE 10 ML SDV (SCHEDULED) IV SCH ×2 (10:09→21:30)
[2017-01-01] MEDS: ASPIRIN 81 MG TABLET, ENT COATED PO SCH (10:18)
[2017-01-01] MEDS: HEPARIN SOD (PORCINE) 5,000 UNIT/ML 1 ML SYRINGE SUBCUT SCH ×2 (10:18→21:30)
[2017-01-01] MEDS: IPRATROPIUM BROMIDE 0.06% NASAL SPRAY 15 ML NASL SCH ×3 (10:23→17:35)
[2017-01-01] MEDS ORDERED: PANTOPRAZOLE SODIUM 40 MG VIAL IV ONE (10:30)
[2017-01-01] MEDS ORDERED: NALOXONE HCL INJ/PF 0.4 MG/1 ML SDV ONE (13:36)
[2017-01-01] MEDS ORDERED: PROMETHAZINE HCL INJ 25 MG/1 ML VIAL ONE (13:37)
[2017-01-01] MEDS ORDERED: GLYCOPYRROLATE INJ 0.4 MG/2 ML VIAL ONE (13:37)
[2017-01-01] MEDS ORDERED: ONDANSETRON HCL INJ/PF 4 MG/2 ML SDV ONE (13:37)
[2017-01-01] MEDS ORDERED: FLUMAZENIL INJ 0.5 MG/5 ML VIAL IV ONE (13:38)
[2017-01-01] MEDS ORDERED: MIDAZOLAM 2 MG/2 ML INJ ONE (13:38)
[2017-01-01] MEDS ORDERED: EPINEPHRINE INJ 1 MG/10 ML DISP.SYRIN ONE (13:39)
[2017-01-01] MEDS ORDERED: GLUCAGON,HUMAN RECOMB 1 MG INJ ONE (13:39)
[2017-01-01] MEDS: MIDAZOLAM 2 MG/2 ML INJ ONE ×2 (14:01→14:08)
[2017-01-01] MEDS: FENTANYL CITRATE INJ/PF 100 MCG/2 ML AMPUL ONE ×2 (14:03→14:10)
--- NOTE | 2017-01-01 14:47 | Operative Report ---
Operative Report DATE OF SURGERY: 01/01/17 PREOPERATIVE DIAGNOSIS: Chest and abdominal pain POSTOPERATIVE DIAGNOSIS: Chest and abdominal pain OPERATION: Esophagogastroduodenoscopy. Colonoscopy. SURGEON: ROBERT STRE[address] ANESTHESIA: Moderate Sedation TISSUE REMOVED OR ALTERED: None COMPLICATIONS: None ESTIMATED BLOOD LOSS: none INTRAOPERATIVE FINDINGS: Normal-appearing esophagus stomach and duodenum. Normal-appearing colon. PROCEDURE: Informed consent was obtained. Patient was brought to the endoscopy suite. IV sedation with Versed and fentanyl was administered. Endoscope was passed via the patient's mouth into the second portion the duodenum. Had very minimal erythema otherwise it appeared normal. Gastric mucosa appeared normal. Esophagus appeared normal. I found no masses nor erosions nor ulcerations. Patient was repositioned digital rectal exam revealed no palpable perianal masses. Endoscope was passed via the patient's anus it was fed to the cecum. The bowel prep was good visualization was good. Cecum, right colon, transverse colon, descending colon, sigmoid colon and rectum were all normal with no polyps no masses no diverticuli no inflammatory changes. Patient tolerated procedure well with no apparent complications. Assessment: Normal endoscopic evaluation. Suspect that her symptoms are due to her biliary colic. Will discuss with the oncoming surgeon about laparoscopic cholecystectomy tomorrow.
--- NOTE | 2017-01-01 14:51 | PDOC PROGRESS REPORT ---
Subjective Progress Note for:: 01/01/17 Subjective:: Patient seen today at morning rounds. No acute events overnight. Patient denies chest pain, shortness of breath, abdominal pain, vomiting, fevers , chills, diarrhea, constipation, headache, new onset weakness. Patient admits to some nausea. Patient reports her symptoms of lacrimation, salivation, and dysphoria have improved with the addition of clonidine. Physical Exam Vital Signs: Temp Pulse Resp BP Pulse Ox 98.1 F 71 18 109/70 95 12/31/16 23:30 01/01/17 02:00 12/31/16 23:30 12/31/16 23:30 12/31/16 23:30 Intake & Output 12/31/16 01/01/17 01/02/17 06:59 06:59 06:59 Intake Total 3338 3075 Output Total 1500 500 Balance 1838 2575 Exam: General: Awake alert and oriented x3, no acute respiratory distress HEENT: AT/NC, PERRL, EOMI, oropharynx is moist, pink, no scleral icterus, no conjunctival injection Neck: No JVD, trachea midline Chest: Clear to auscultation bilaterally, no wheezes rhonchi or rales CV: Regular rate and rhythm, normal S1 and S2, no murmur, rub, or gallop Abdomen: Soft, not tender to palpation, nondistended, active bowel sounds; no rebound, rigidity, or guarding Extremities: No cyanosis, clubbing or edema Neuro: Cranial nerves II through XII are grossly intact without focal deficits; awake alert and oriented x3 Psych: Normal mood and affect Results Laboratory Results: 01/01/17 05:20 01/01/17 05:20 12/31/16 01/01/17 01/01/17 05:20 05:20 05:20 WBC 4.9 RBC 3.60 L Hgb 11.0 L Hct 32.1 L MCV 89 MCH 30.6 MCHC 34.3 RDW 14.2 H Plt Count 147 L Seg Neutrophils % 65.1 Lymphocytes % 20.8 Monocytes % 8.2 Eosinophils % 4.7 Basophils % 1.2 Absolute Neutrophils 3.2 Absolute Lymphocytes 1.0 Absolute Monocytes 0.4 Absolute Eosinophils 0.2 Absolute Basophils 0.1 Sodium 143.2 Potassium 3.7 Chloride 111 H Carbon Dioxide 24 Anion Gap 8 BUN 3 L Creatinine 0.64 Est GFR ( Amer) > 60 Est GFR (Non-Af Amer) > 60 Glucose 112 H Calcium 8.9 Phosphorus 3.7 Magnesium 1.6 Total Bilirubin 0.4 0.5 AST 147 H 93 H ALT 159 H 142 H Alkaline Phosphatase 208 H 206 H Total Protein 5.0 L 5.1 L Albumin 2.6 L 2.8 L Lipase 32.3 Impressions: Hepatobiliary Scan Nuclear Medicine 12/28/16 00:00 IMPRESSION: LOW GALLBLADDER EJECTION FRACTION. EVIDENCE FOR BILIARY DYSKINESIS. NO CYSTIC OR COMMON DUCT OBSTRUCTION. Chest X-Ray 12/28/16 00:11 IMPRESSION: No acute radiographic finding in the chest. Abdomen Ultrasound 12/28/16 01:49 IMPRESSION: Contracted gallbladder with mild gallbladder wall thickening. Echogenic non-shadowing area within the gallbladder may represent artifact versus sludge. Positive sonographic Dickerson's sign, if clinical concern persists for acute cholecystitis, further evaluation with hepatobiliary scan can be obtained. Fatty infiltration of the liver. Guidance Fluoroscopy 12/29/16 00:00 IMPRESSION: SUCCESSFUL PLACEMENT OF A 5 FR DUAL LUMEN 40 CM PICC IN THE left basilic VEIN. Interventional Vascular Procedure 12/29/16 00:00 IMPRESSION: SUCCESSFUL PLACEMENT OF A 5 FR DUAL LUMEN 40 CM PICC IN THE left basilic VEIN. PICC Line Insertion 12/29/16 00:00 IMPRESSION: SUCCESSFUL PLACEMENT OF A 5 FR DUAL LUMEN 40 CM PICC IN THE left basilic VEIN. KUB X-Ray 12/31/16 13:53 IMPRESSION: NO RADIOGRAPHIC EVIDENCE FOR ACUTE ABDOMINAL DISEASE. Assessment & Plan - Diagnosis (1) Acute acalculous cholecystitis Is this a current diagnosis for this admission?: YesPlan: Patient currently on Zosyn. At this time, have concern for ascending cholangitis in light of her elevated LFTs and abdominal pain. (2) Opiate withdrawal Is this a current diagnosis for this admission?: YesPlan: Patient with symptomatology consistent with opiate withdrawal. Improved with clonidine patch and readministration of low-dose opiates. (3) Chest pain Qualifiers: Chest pain type: unspecified Qualified Code(s): R07.9 - Chest pain, unspecified Is this a current diagnosis for this admission?: YesPlan: Secondary to her underlying gallbladder dyskinesia. Have discussed case with Dr. Gaspar of cardiology who reports that patient has had a negative cardiac catheterization in the past, and is known to him from multiple admissions. (4) Benzodiazepine dependence Is this a current diagnosis for this admission?: YesPlan: Patient currently having an element of opiate and benzodiazepine withdrawal. Scheduled Xanax to prevent seizure. (5) Elevated LFTs Is this a current diagnosis for this admission?: YesPlan: Admits to overusing able recent prescription of Tylenol-containing medication. Patient has completed 3 bag acetylcysteine protocol. Concerned for considered ascending cholangitis. (6) COPD (chronic obstructive pulmonary disease) Qualifiers: COPD type: unspecified COPD Qualified Code(s): J44.9 - Chronic obstructive pulmonary disease, unspecified Is this a current diagnosis for this admission?: YesPlan: Nebulized treatments as needed (7) Hyperlipidemia Qualifiers: Hyperlipidemia type: unspecified Qualified Code(s): E78.5 - Hyperlipidemia, unspecified Is this a current diagnosis for this admission?: YesPlan: Continue statin. (8) Hypothyroid Qualifiers: Hypothyroidism type: unspecified Qualified Code(s): E03.9 - Hypothyroidism, unspecified Is this a current diagnosis for this admission?: YesPlan: TSH is normal. Continue current Synthroid dose (9) Opiate dependence Qualifiers: Substance use status: in withdrawal Qualified Code(s): F11.23 - Opioid dependence with withdrawal Is this a current diagnosis for this admission?: YesPlan: Patient with continuous opiate dependence currently in withdrawal. Patient has only recently expressed a desire to stop taking narcotic pain medications. Continue symptomatic relief with Atrovent, Imodium, and scopolamine. (10) Protein calorie malnutrition Is this a current diagnosis for this admission?: YesPlan: Patient has a prealbumin of 15.3. Once taking better orally will initiate patient on supplementation. (11) Cigarette smoker two packs a day or less Is this a current diagnosis for this admission?: Yes (12) Noncompliance Is this a current diagnosis for this admission?: Yes - Time Time Spent with patient: 35 or more minutes Medications reviewed and adjusted accordingly: Yes
[2017-01-01] MEDS: POTASSI CL 20 MEQ/D5-1/2NS 1L 1,000 ML IV PRN (18:18)
[2017-01-01] MEDS: PAROXETINE HCL 20 MG TABLET PO SCH (21:35)
[2017-01-01] MEDS: PROMETHAZINE HCL INJ 25 MG/1 ML VIAL IV PRN (21:41)
[2017-01-02] MEDS: POTASSI CL 20 MEQ/D5-1/2NS 1L 1,000 ML IV PRN ×3 (03:28→22:36)
[2017-01-02] MEDS: PIPERACILLIN SODIUM/TAZOBACTAM 3.375 GM in NORMAL SALINE 100 ML IV SCH ×2 (03:28→09:33)
[2017-01-02] MEDS: PROMETHAZINE HCL INJ 25 MG/1 ML VIAL IV PRN ×3 (03:33→19:56)
[2017-01-02] MEDS: BUSPIRONE HCL 10 MG TABLET PO SCH ×3 (05:12→21:25)
[2017-01-02] MEDS: ALPRAZOLAM 0.25 MG TABLET PO SCH ×3 (05:12→21:24)
[2017-01-02] MEDS: LANSOPRAZOLE 30 MG TAB.RAP.DR PO SCH ×2 (05:12→17:27)
[2017-01-02] MEDS: IPRATROPIUM/ALBUTEROL 0.5-2.5 MG/3 ML AMPUL NEB SCH ×3 (08:12→20:51)
[2017-01-02] MEDS: IPRATROPIUM BROMIDE 0.06% NASAL SPRAY 15 ML NASL SCH ×3 (09:46→17:27)
[2017-01-02] MEDS: HEPARIN SOD (PORCINE) 5,000 UNIT/ML 1 ML SYRINGE SUBCUT SCH ×2 (09:48→21:25)
[2017-01-02] MEDS: NORMAL SALINE 10 ML SDV (SCHEDULED) IV SCH ×2 (09:48→21:25)
[2017-01-02] MEDS: ASPIRIN 81 MG TABLET, ENT COATED PO SCH (09:48)
[2017-01-02] MEDS ORDERED: LIDOCAINE 1% INJ-PF (10 MG/ML) 30 ML SDV ONE (09:56)
[2017-01-02] MEDS ORDERED: BUPIVACAINE HCL 0.5%-EPI 1:200000 INJ/PF 30 ML VIAL ONE (09:57)
[2017-01-02] MEDS ORDERED: MIDAZOLAM 2 MG/2 ML INJ ONE (09:59)
[2017-01-02] MEDS ORDERED: PROPOFOL INJ 200 MG/20 ML VIAL IV ONE (10:00)
[2017-01-02] MEDS ORDERED: ACETAMINOPHEN 100 ML IV ONE (10:00)
[2017-01-02] MEDS ORDERED: DEXMEDETOMIDINE INJ 80 MCG/20 ML VIAL IV ONE (10:00)
[2017-01-02] MEDS ORDERED: FENTANYL CITRATE INJ/PF 250 MCG/5 ML AMPULE ONE (10:00)
[2017-01-02] MEDS ORDERED: CEFAZOLIN 2 GM/D5W RTU 2 GM/50 ML RTUPB IV PRN (10:00)
[2017-01-02] MEDS ORDERED: MEPERIDINE HCL/PF INJ 25 MG/1 ML DISP.SYRIN IV PRN (11:28)
[2017-01-02] MEDS ORDERED: FENTANYL CITRATE INJ/PF 100 MCG/2 ML AMPUL IV PRN ×3 (11:28)
[2017-01-02] MEDS ORDERED: DIPHENHYDRAMINE HCL 50 MG/ML VIAL IV PRN (11:28)
[2017-01-02] MEDS ORDERED: OXYCODONE-ACETAMINOPHEN 5-325 MG TABLET PO PRN ×2 (11:28)
[2017-01-02] MEDS ORDERED: MORPHINE SULFATE 10 MG/ML INJ IV PRN (11:28)
[2017-01-02] MEDS ORDERED: PROMETHAZINE HCL INJ 25 MG/1 ML VIAL IV PRN ×2 (11:28)
[2017-01-02] MEDS ORDERED: HYDROCODONE/ACETAMINOPHEN 5-325 MG TABLET PO PRN (12:05)
[2017-01-02] MEDS ORDERED: METOCLOPRAMIDE HCL INJ/PF 10 MG/2 ML SDV ONE (12:34)
[2017-01-02] MEDS ORDERED: RINGERS SOLUTION,LACTATED 500 ML IV ONE (13:00)
[2017-01-02] MEDS ORDERED: SUCCINYLCHOLINE CHLORIDE INJ 200 MG/10 ML VIAL ONE (13:37)
[2017-01-02] MEDS ORDERED: ONDANSETRON HCL INJ/PF 4 MG/2 ML SDV ONE (13:37)
[2017-01-02] MEDS ORDERED: GLYCOPYRROLATE INJ 0.4 MG/2 ML VIAL ONE (13:37)
[2017-01-02] MEDS: GABAPENTIN 300 MG CAPSULE PO SCH ×3 (13:53→17:27)
[2017-01-02] MEDS: LEVOTHYROXINE SODIUM 0.05 MG TABLET PO SCH (13:54)
[2017-01-02] MEDS: HYDROCODONE/ACETAMINOPHEN 5-325 MG TABLET PO PRN ×2 (14:46→19:40)
--- NOTE | 2017-01-02 16:31 | PDOC PROGRESS REPORT ---
Subjective Progress Note for:: 01/02/17 Subjective:: Patient was seen today after surgery. She reports she's having some slight abdominal discomfort, but is overall much improved. Patient denies chest pain, shortness of breath, nausea, vomiting, fevers, chills , diarrhea, constipation, headache, new onset weakness. Physical Exam Vital Signs: Temp Pulse Resp BP Pulse Ox 98.1 F 83 16 120/75 96 01/02/17 15:25 01/02/17 15:25 01/02/17 15:25 01/02/17 15:25 01/02/17 15:25 Intake & Output 01/01/17 01/02/17 01/03/17 06:59 06:59 06:59 Intake Total 3075 4790 1400 Output Total 500 1000 1230 Balance 2575 3790 170 Weight 58.2 kg Exam: General: Awake alert and oriented x3, no acute respiratory distress HEENT: AT/NC, PERRL, EOMI, oropharynx is moist, pink, no scleral icterus, no conjunctival injection Neck: No JVD, trachea midline Chest: Clear to auscultation bilaterally, no wheezes rhonchi or rales CV: Regular rate and rhythm, normal S1 and S2, no murmur, rub, or gallop Abdomen: Soft, mildly tender to palpation, nondistended, diminished bowel sounds ; no rebound, rigidity, or guarding Extremities: No cyanosis, clubbing or edema Neuro: Cranial nerves II through XII are grossly intact without focal deficits; awake alert and oriented x3 Psych: Normal mood and affect Results Laboratory Results: 01/01/17 05:20 01/01/17 05:20 Impressions: Hepatobiliary Scan Nuclear Medicine 12/28/16 00:00 IMPRESSION: LOW GALLBLADDER EJECTION FRACTION. EVIDENCE FOR BILIARY DYSKINESIS. NO CYSTIC OR COMMON DUCT OBSTRUCTION. Chest X-Ray 12/28/16 00:11 IMPRESSION: No acute radiographic finding in the chest. Abdomen Ultrasound 12/28/16 01:49 IMPRESSION: Contracted gallbladder with mild gallbladder wall thickening. Echogenic non-shadowing area within the gallbladder may represent artifact versus sludge. Positive sonographic Dickerson's sign, if clinical concern persists for acute cholecystitis, further evaluation with hepatobiliary scan can be obtained. Fatty infiltration of the liver. Guidance Fluoroscopy 12/29/16 00:00 IMPRESSION: SUCCESSFUL PLACEMENT OF A 5 FR DUAL LUMEN 40 CM PICC IN THE left basilic VEIN. Interventional Vascular Procedure 12/29/16 00:00 IMPRESSION: SUCCESSFUL PLACEMENT OF A 5 FR DUAL LUMEN 40 CM PICC IN THE left basilic VEIN. PICC Line Insertion 12/29/16 00:00 IMPRESSION: SUCCESSFUL PLACEMENT OF A 5 FR DUAL LUMEN 40 CM PICC IN THE left basilic VEIN. KUB X-Ray 12/31/16 13:53 IMPRESSION: NO RADIOGRAPHIC EVIDENCE FOR ACUTE ABDOMINAL DISEASE. Cholangiogram 01/02/17 00:00 IMPRESSION: INTRAOPERATIVE CHOLANGIOGRAM. Fluoroscopy 01/02/17 00:00 IMPRESSION: Please see combined report for performance of procedure and radiologic supervision and interpretation. Assessment & Plan - Diagnosis (1) Acute acalculous cholecystitis Is this a current diagnosis for this admission?: YesPlan: Patient underwent laparoscopic cholecystectomy today. (2) Opiate withdrawal Is this a current diagnosis for this admission?: YesPlan: Improved. Will only give small amount of outpatient opiates. (3) Chest pain Qualifiers: Chest pain type: unspecified Qualified Code(s): R07.9 - Chest pain, unspecified Is this a current diagnosis for this admission?: YesPlan: Secondary to her underlying gallbladder dyskinesia. Have discussed case with Dr. Gaspar of cardiology who reports that patient has had a negative cardiac catheterization in the past, and is known to him from multiple admissions. (4) Benzodiazepine dependence Is this a current diagnosis for this admission?: YesPlan: Patient currently having an element of opiate and benzodiazepine withdrawal. Scheduled Xanax to prevent seizure. (5) Elevated LFTs Is this a current diagnosis for this admission?: Yes (6) COPD (chronic obstructive pulmonary disease) Qualifiers: COPD type: unspecified COPD Qualified Code(s): J44.9 - Chronic obstructive pulmonary disease, unspecified Is this a current diagnosis for this admission?: YesPlan: Nebulized treatments as needed (7) Hyperlipidemia Qualifiers: Hyperlipidemia type: unspecified Qualified Code(s): E78.5 - Hyperlipidemia, unspecified Is this a current diagnosis for this admission?: Yes (8) Hypothyroid Qualifiers: Hypothyroidism type: unspecified Qualified Code(s): E03.9 - Hypothyroidism, unspecified Is this a current diagnosis for this admission?: Yes (9) Opiate dependence Qualifiers: Substance use status: in withdrawal Qualified Code(s): F11.23 - Opioid dependence with withdrawal Is this a current diagnosis for this admission?: Yes (10) Protein calorie malnutrition Is this a current diagnosis for this admission?: Yes (11) Cigarette smoker two packs a day or less Is this a current diagnosis for this admission?: Yes (12) Noncompliance Is this a current diagnosis for this admission?: Yes - Time Time Spent with patient: 25-34 minutes Medications reviewed and adjusted accordingly: Yes Anticipated discharge: Home Within: within 24 hours
--- NOTE | 2017-01-02 20:33 | OPERATIVE REPORT E ---
Operative Report NAME: MARCO A SANCHEZ : 1965 AGE: 51Y DATE OF SURGERY: 01/02/2017 ROOM: 419 PREOPERATIVE DIAGNOSES: 1. BILIARY DYSKINESIA. 2. ELEVATED LIVER FUNCTION TESTS. POSTOPERATIVE DIAGNOSES: 1. BILIARY DYSKINESIA. 2. ELEVATED LIVER FUNCTION TESTS. OPERATION: 1. Laparoscopic cholecystectomy with intraoperative cholangiogram. 2. Liver biopsy. SURGEON: NEGRA DENISE M.D. ANESTHESIA: General. INDICATIONS FOR PROCEDURE: The patient is a 51-year-old female who presented to the emergency room with epigastric and mid chest pain. She has been having epigastric pain ongoing for approximately a year now. She had cardiac causes ruled out and had an ultrasound of the abdomen. This revealed a contracted gallbladder with fatty liver. She did have mildly elevated liver function tests. A hepatobiliary scan was obtained showing the ejection fraction of 17%. An EGD and colonoscopy were obtained which were normal. She is now here to undergo a laparoscopic cholecystectomy. FINDINGS AT SURGERY: The patient had a gallbladder without obvious gallstones. She had normal intraoperative cholangiogram without any filling defects being present. PROCEDURE: After informed consent was obtained, the patient was taken to the operating room and placed in the supine position. General endotracheal anesthesia was administered. Prior to making abdominal incision, the skin was injected with 0.25% Marcaine. An infraumbilical incision was made in the skin using a scalpel. A 12 mm Optiview trocar was then inserted through this incision, through the fascia and into the abdominal cavity under direct vision. The abdomen was then insufflated and no injuries were noted upon looking inside. Three 5-mm ports were then placed in the right upper quadrant. The gallbladder fossa was then grasped and lifted anteriorly and superiorly, exposing the triangle of Calot. The peritoneum was then scored and the cystic duct identified. It was dissected free from the surrounding structures with a critical view being attained. A clip was then placed across the cystic duct/gallbladder junction. An incision was then made in the cystic duct. Cholangiogram catheter was then inserted and the cholangiogram was then performed. This was normal. The catheter was then removed and clips were then patient placed across the distal cystic duct with it then being divided. The cystic artery was identified, isolated, clipped proximally and distally and then divided. The gallbladder was then dissected off the gallbladder bed using electrocautery, placed in an Endobag and removed through the umbilical port. The right upper quadrant was thoroughly irrigated until the return fluid was clear. Next, a Zachary-Cut needle was inserted through the abdominal wall into the liver, obtaining several core biopsies. Once the biopsies were obtained, hemostasis was attained using electrocautery. The ports were removed. No bleeding was noted at the port sites with the abdomen then being desufflated. The umbilical fascial defect was closed using #0 Vicryl suture. The skin incisions were closed using 4-0 Monocryl subcuticular stitch. Dermabond was then applied. The patient was then awakened, extubated and taken from the operating room in stable condition. Estimated blood loss was less than 10 mL. COMPLICATIONS: None. CONDITION: Condition of the patient at the end of the procedure was stable. SPECIMENS: Gallbladder and liver biopsies. DRAINS AND PACKS: None. CLASSIFICATION OF WOUND: Clean, contaminated. DICTATING PHYSICIAN: NEGRA DENISE M.D. [id number] PHY#: [id number] ID: [id number] JOB#: [id number] ACCT: [id number] cc:NEGRA DENISE M.D. >
[2017-01-03] MEDS: HYDROCODONE/ACETAMINOPHEN 5-325 MG TABLET PO PRN ×2 (01:10→05:16)
[2017-01-03] MEDS: ALPRAZOLAM 0.25 MG TABLET PO SCH (05:16)
[2017-01-03] MEDS: BUSPIRONE HCL 10 MG TABLET PO SCH (05:16)
[2017-01-03] MEDS: LANSOPRAZOLE 30 MG TAB.RAP.DR PO SCH (05:16)
[2017-01-03] MEDS: POTASSI CL 20 MEQ/D5-1/2NS 1L 1,000 ML IV PRN (06:46)
[2017-01-03 07:36] VITALS: BP 120/49
[2017-01-03] MEDS: IPRATROPIUM/ALBUTEROL 0.5-2.5 MG/3 ML AMPUL NEB SCH (09:01)
[2017-01-03] MEDS: LEVOTHYROXINE SODIUM 0.05 MG TABLET PO SCH (09:36)
[2017-01-03] MEDS: HEPARIN SOD (PORCINE) 5,000 UNIT/ML 1 ML SYRINGE SUBCUT SCH (09:36)
[2017-01-03] MEDS: PROMETHAZINE HCL INJ 25 MG/1 ML VIAL IV PRN (09:36)
[2017-01-03] MEDS: ASPIRIN 81 MG TABLET, ENT COATED PO SCH (09:36)
[2017-01-03] MEDS: GABAPENTIN 300 MG CAPSULE PO SCH (09:36)
--- NOTE | 2017-01-03 17:39 | PDOC DISCHARGE SUMMARY ---
General - Admit/Disc Date/PCP Admission Date/Primary Care Provider: 12/29/16 14:17 Discharge Date: 01/03/17 - Discharge Diagnosis (1) Acute acalculous cholecystitis Is this a current diagnosis for this admission?: Yes (2) Opiate withdrawal Is this a current diagnosis for this admission?: Yes (3) Benzodiazepine dependence Is this a current diagnosis for this admission?: Yes (4) Chest pain Is this a current diagnosis for this admission?: Yes (5) Elevated LFTs Is this a current diagnosis for this admission?: Yes (6) COPD (chronic obstructive pulmonary disease) Is this a current diagnosis for this admission?: Yes (7) Hyperlipidemia Is this a current diagnosis for this admission?: Yes (8) Hypothyroid Is this a current diagnosis for this admission?: Yes (9) Opiate dependence Is this a current diagnosis for this admission?: Yes (10) Protein calorie malnutrition Is this a current diagnosis for this admission?: Yes (11) Cigarette smoker two packs a day or less Is this a current diagnosis for this admission?: Yes (12) Noncompliance Is this a current diagnosis for this admission?: Yes (13) History of CVA with residual deficit Is this a current diagnosis for this admission?: Yes (14) CAD (coronary artery disease) Is this a current diagnosis for this admission?: Yes - Additional Information Resuscitation Status: Full Code Discharge Diet: Cardiac Discharge Activity: Activity As Tolerated, No Lifting Over 10 Pounds, No Lifting /Push/Pulling, Slowly Increase Activity, No tub bath Home Medications: Albuterol Sulfate [Proair HFA Inhalation Aerosol 8.5 gm MDI] 2 puff IH Q4HP PRN 12/28/16 Gabapentin [Neurontin 300 mg Capsule] 300 mg PO TID 12/28/16 Alprazolam [Xanax 0.25 mg Tablet] 0.25 mg PO Q8 #30 tablet 01/03/17 Aspirin [Ecotrin 81 mg EC Tablet] 81 mg PO DAILY #90 tabec 01/03/17 Buspirone HCl [Buspar 10 mg Tablet] 10 mg PO TID #90 tablet 01/03/17 Hydrocodone/Acetaminophen [[place] 5-325 mg Tablet] 1 tab PO Q4HP PRN #10 tablet 01/03/17 Levothyroxine Sodium [Synthroid 0.05 mg Tablet] 0.05 mg PO DAILY tablet Melatonin/Pyridoxine HCl (B6) [Melatonin 10 mg Tablet] 1 each PO QHS #90 tab.mphase 01/03/17 History of Present Illness History of Present Illness: Please see H&P for full history of present illness Hospital Course Hospital Course: Patient presented to the emergency department with complaints of chest pain. Patient was initially placed on observation for ACS and ruled out for this condition. She was seen by Dr. Auguste, cardiology who was familiar with this patient from prior hospitalizations. Patient had had prior cardiac catheterization that was negative. On day 1, patient was found to be altered with slurred speech and was found in her room to have a possible of Ambien from which 25 tablets were gone over 3 days. Patient also had 1 mg Xanax tablets in this, but review of patient on the [place] controlled substance Registry reveals that they had not been prescribed to her. Patient was attempting to take pills that she had hidden the bathroom on day 1. Patient was found to have elevated LFTs and was started on 3 bag acetylcysteine protocol. Patient admitted to inappropriate use of narcotic pain medications containing Tylenol. Patient admitted that she wanted help with these problems and psychology was consulted. Patient did express some symptoms of opiate withdrawal which were treated medically. On presentation, patient elevated LFTs and ultrasound were suggestive of cholecystitis, and hydroscan was performed revealing a 13% ejection fraction. Surgery was consulted, and they felt she required colonoscopy and upper endoscopy prior to cholecystectomy. These were performed and found to be unremarkable. Patient underwent laparoscopic cholecystectomy on 01/02/2017 without complication. Patient was eating and drinking ambulating and doing well. Patient was discharged home today in stable condition. Physical Exam Vital Signs: Temp Pulse Resp BP Pulse Ox 98.3 F 98 16 120/49 L 95 01/03/17 10:03 01/03/17 10:03 01/03/17 10:03 01/03/17 10:03 01/03/17 10:03 Intake & Output 01/02/17 01/03/17 01/04/17 06:59 06:59 06:59 Intake Total 4790 6438 880 Output Total 1000 2230 600 Balance 3790 4208 280 Weight 58.2 kg 62 kg Exam: General: Awake alert and oriented x3, no acute respiratory distress HEENT: AT/NC, PERRL, EOMI, oropharynx is moist, pink, no scleral icterus, no conjunctival injection Neck: No JVD, trachea midline Chest: Clear to auscultation bilaterally, no wheezes rhonchi or rales CV: Regular rate and rhythm, normal S1 and S2, no murmur, rub, or gallop Abdomen: Soft, not tender to palpation, nondistended, active bowel sounds; no rebound, rigidity, or guarding Extremities: No cyanosis, clubbing or edema Neuro: Cranial nerves II through XII are grossly intact without focal deficits; awake alert and oriented x3 Psych: Normal mood and affect Results Laboratory Results: 01/01/17 05:20 01/01/17 05:20 Impressions: Hepatobiliary Scan Nuclear Medicine 12/28/16 00:00 IMPRESSION: LOW GALLBLADDER EJECTION FRACTION. EVIDENCE FOR BILIARY DYSKINESIS. NO CYSTIC OR COMMON DUCT OBSTRUCTION. Chest X-Ray 12/28/16 00:11 IMPRESSION: No acute radiographic finding in the chest. Abdomen Ultrasound 12/28/16 01:49 IMPRESSION: Contracted gallbladder with mild gallbladder wall thickening. Echogenic non-shadowing area within the gallbladder may represent artifact versus sludge. Positive sonographic Dickerson's sign, if clinical concern persists for acute cholecystitis, further evaluation with hepatobiliary scan can be obtained. Fatty infiltration of the liver. Guidance Fluoroscopy 12/29/16 00:00 IMPRESSION: SUCCESSFUL PLACEMENT OF A 5 FR DUAL LUMEN 40 CM PICC IN THE left basilic VEIN. Interventional Vascular Procedure 12/29/16 00:00 IMPRESSION: SUCCESSFUL PLACEMENT OF A 5 FR DUAL LUMEN 40 CM PICC IN THE left basilic VEIN. PICC Line Insertion 12/29/16 00:00 IMPRESSION: SUCCESSFUL PLACEMENT OF A 5 FR DUAL LUMEN 40 CM PICC IN THE left basilic VEIN. KUB X-Ray 12/31/16 13:53 IMPRESSION: NO RADIOGRAPHIC EVIDENCE FOR ACUTE ABDOMINAL DISEASE. Cholangiogram 01/02/17 00:00 IMPRESSION: INTRAOPERATIVE CHOLANGIOGRAM. Fluoroscopy 01/02/17 00:00 IMPRESSION: Please see combined report for performance of procedure and radiologic supervision and interpretation. Qualifiers PATEINT BEING DISCHARGED WITH ANY OF THE FOLLOWING DIAGNOSIS?: No Plan Time Spent: Less than 30 Minutes
== END 2017-01-03 10:45 | disposition home health service (06) | DRG 418 ==
LOC: ER 22:42 → EH 12-28 06:27 → UNDOADMOB 12-28 06:27 → EH 12-28 07:40 → UNDOADMOB 12-28 07:40 → 4W 12-28 09:03 → EH 12-28 09:03 → OBSVTOIN 12-29 14:17 → EH 12-29 14:17 → 4W 12-29 14:17
PROVIDERS: ADMIT Family Medicine; ATTEND Family Medicine
PROC: 02HV33Z Insertion of Infusion Device into Superior Vena Cava, Percutaneous Approach (ICD-10-PCS; 2016-12-29)
PROC: B5181ZA Fluoroscopy of Superior Vena Cava using Low Osmolar Contrast, Guidance (ICD-10-PCS; 2016-12-29)
PROC: B548ZZA Ultrasonography of Superior Vena Cava, Guidance (ICD-10-PCS; 2016-12-29)
PROC: 0DJ08ZZ Inspection of Upper Intestinal Tract, Via Natural or Artificial Opening Endoscopic (ICD-10-PCS; 2017-01-01)
PROC: 0DJD8ZZ Inspection of Lower Intestinal Tract, Via Natural or Artificial Opening Endoscopic (ICD-10-PCS; 2017-01-01)
PROC: 0FB04ZX Excision of Liver, Percutaneous Endoscopic Approach, Diagnostic (ICD-10-PCS; 2017-01-02)
PROC: BF001ZZ Plain Radiography of Bile Ducts using Low Osmolar Contrast (ICD-10-PCS; 2017-01-02)
PROC: 0FT44ZZ Resection of Gallbladder, Percutaneous Endoscopic Approach (ICD-10-PCS; principal; 2017-01-02 10:45)
DX: K81.0 Acute cholecystitis (principal); F11.23 Opioid dependence with withdrawal; F13.20 Sedative, hypnotic or anxiolytic dependence, uncomplicated; E46 Unspecified protein-calorie malnutrition; I69.351 Hemiplegia and hemiparesis following cerebral infarction affecting right dominant side; K59.03 Drug induced constipation; T40.2X5A Adverse effect of other opioids, initial encounter; Z91.14 Patient's other noncompliance with medication regimen; R07.9 Chest pain, unspecified; J44.9 Chronic obstructive pulmonary disease, unspecified; E78.5 Hyperlipidemia, unspecified; E03.9 Hypothyroidism, unspecified; F17.210 Nicotine dependence, cigarettes, uncomplicated; I25.10 Atherosclerotic heart disease of native coronary artery without angina pectoris; K21.9 Gastro-esophageal reflux disease without esophagitis; F31.9 Bipolar disorder, unspecified; M19.90 Unspecified osteoarthritis, unspecified site; G80.9 Cerebral palsy, unspecified; Z86.718 Personal history of other venous thrombosis and embolism; Z79.82 Long term (current) use of aspirin; Z79.899 Other long term (current) drug therapy; Z85.3 Personal history of malignant neoplasm of breast; Z91.041 Radiographic dye allergy status; Z88.8 Allergy status to other drugs, medicaments and biological substances; Z90.710 Acquired absence of both cervix and uterus; Z68.25 Body mass index [BMI] 25.0-25.9, adult
CPT/HCPCS: 36415; 36569; 43235; 45378; 71010; 74000; 74300; 76705; 76937; 77001; 78227; 790; 80048; 80053; 80061; 80074; 80076; 80307; 81001; 82550; 82553; 83690; 83735; 84100; 84134; 84443; 84484; 85025; 85610; 85730; 86701; 87493; 88304; 88305; 88307; 88313; 93005; 93010; 96361; 96372; 96374; 96375; 96376; 99285; A9537; G0378; J0131; J0132; J0171; J0330; J1170; J1610; J1642; J1644; J2060; J2250; J2270; J2310; J2405; J2543; J2550; J2704; J2765; J2805; J3010; J3475; J3480; J3490; J7030; J7060; J7620; Q9969; S0164

== ENCOUNTER 2017-01-04 13:25 | Emergency (ER) | payer MEDICARE, MEDICAID ==
[2017-01-04 14:16] LABS: APPEARANCE,URINE CLEAR; BILIRUBIN,URINE NEGATIVE (NEGATIVE); GLUCOSE, URINE NEGATIVE (NEGATIVE); KETONES,URINE NEGATIVE (NEGATIVE); LEUKOCYTE ESTERASE,URINE NEGATIVE (NEGATIVE); NITRITE,URINE NEGATIVE (NEGATIVE); PROTEIN,URINE NEGATIVE (NEGATIVE); URINE SPECIFIC GRAVITY 1.006; UROBILINOGEN,URINE NEGATIVE mg/dL (<2.0)
[2017-01-04] MEDS ORDERED: NORMAL SALINE 1000 ML 1,000 ML IV ONE (14:45)
--- NOTE | 2017-01-04 14:46 | ER Document Report ---
ED Medical Screen (RME) - General Chief Complaint: Abdominal Pain Stated Complaint: ABDOMINAL PAIN TRAVEL OUTSIDE OF THE [place] IN LAST 30 DAYS: No - HPI Patient complains to provider of: abdominal pain Notes: 01/04/17 14:46 Patient with abdominal pain recent colectomy states nausea vomiting. Pain along the incision sites. - Related Data Allergies/Adverse Reactions: Iodinated Contrast Media - Oral and Allergy (Verified 01/04/17 13:38) ketorolac [From Toradol] Allergy (Verified 01/04/17 13:38) ondansetron [From Zofran (as hydrochloride)] Allergy (Verified 01/04/17 13:38) Sulfa (Sulfonamide Antibiotics) Allergy (Verified 01/04/17 13:38) sulfamethoxazole [From Septra] Allergy (Verified 01/04/17 13:38) trimethoprim [From Septra] Allergy (Verified 01/04/17 13:38) Past Medical History - Social History Family history: Arthritis, Malignancy, CAD, CVA, DM, Hyperlipidemia, Hypertension, Thyroid Disfunction - Past Medical History Cardiac Medical History: Reports: Hx Congestive Heart Failure, Hx DVT, Hx Hypercholesterolemia, Hx Hypertension Denies: Hx Pulmonary Embolism Pulmonary Medical History: Reports: Hx COPD, Hx Pneumonia - x2 Neurological Medical History: Reports: Hx Seizures Endocrine Medical History: Reports: Hx Hypothyroidism. Denies: Hx Diabetes Mellitus Type 1, Hx Diabetes Mellitus Type 2, Hx Hyperthyroidism Renal/ Medical History: Reports: Hx Kidney Stones. Denies: Hx Peritoneal Dialysis Malignancy Medical History: Reports: Hx Breast Cancer, Hx Lymphoma GI Medical History: Reports: Hx Gastroesophageal Reflux Disease. Denies: Hx Cirrhosis, Hx Hepatitis Musculoskeltal Medical History: Reports Hx Arthritis Psychiatric Medical History: Reports: Hx Bipolar Disorder, Hx Depression Infectious Medical History: Denies: Hx Hepatitis Past Surgical History: Reports: Hx Appendectomy, Hx Cardiac Catheterization, Hx Genitourinary Surgery - Bladder tack, Hx Hysterectomy, Hx Kidney (Renal Surgery ) - stone removal, Hx Tubal Ligation - Immunizations Immunizations up to date: Yes Hx Diphtheria, Pertussis, Tetanus Vaccination: Yes Review of Systems - Review of Systems Gastrointestinal: Abdominal pain Physical Exam - Vital signs Vitals: Temp Pulse Resp BP Pulse Ox 98.3 F 95 19 97/73 L 96 01/04/17 13:39 01/04/17 13:39 01/04/17 13:39 01/04/17 13:39 01/04/17 13:39 - Abdominal Notes: Patient's abdominal wounds suitable scars well-healed no signs of infection at this time. Course - Vital Signs Vital signs: Temp Pulse Resp BP Pulse Ox 98.3 F 95 19 97/73 L 96 01/04/17 13:39 01/04/17 13:39 01/04/17 13:39 01/04/17 13:39 01/04/17 13:39 - Laboratory Laboratory results interpreted by me: 01/04/17 13:40 Urine Blood SMALL H
[2017-01-04 15:00] VITALS: BP 89/67
[2017-01-04 15:26] LABS: ABSOLUTE BASOPHILS # (AUTO) 0.1 10^3/uL (0.0-0.2); ABSOLUTE EOSINOPHILS # (AUTO) 0.5 10^3/uL (0.0-0.6); ABSOLUTE LYMPHOCYTES (AUTO) 1.5 10^3/uL (0.5-4.7); ABSOLUTE MONOCYTES (AUTO) 0.6 10^3/uL (0.1-1.4); ABSOLUTE NEUT (AUTO) 4.4 10^3/uL (1.7-8.2); EOSINOPHILS % (AUTO) 6.9 % (0-6); HEMATOCRIT 37.6 % (36.0-47.0); HEMOGLOBIN 12.7 g/dL (12.0-15.5); HGB HCT DIFFERENCE 0.5; LYMPHOCYTES % (AUTO) 21.7 % (13-45); MEAN CORPUSCULAR HEMOGLOBIN 30.3 pg (27.0-33.4); MEAN CORPUSCULAR HGB CONC 33.7 g/dL (32.0-36.0); MEAN CORPUSCULAR VOLUME 90 fl (80-97); MONOCYTES % (AUTO) 8.7 % (3-13); RED BLOOD COUNT 4.18 10^6/uL (3.72-5.28); RED CELL DISTRIBUTION WIDTH 14.7 % (11.5-14.0); SEGMENTED NEUTROPHILS % (AUTO) 61.7 % (42-78); WHITE BLOOD COUNT 7.1 10^3/uL (4.0-10.5)
[2017-01-04 15:39] LABS: ALANINE AMINOTRANSFERASE 101 U/L (9-52); ALBUMIN 3.9 g/dL (3.5-5.0); ALKALINE PHOSPHATASE 224 U/L (38-126); ANION GAP 12 (5-19); ASPARTATE AMINO TRANSFERASE 75 U/L (14-36); BILIRUBIN,DIRECT 0.2 mg/dL (0.0-0.4); BILIRUBIN,TOTAL 0.4 mg/dL (0.2-1.3); BLOOD UREA NITROGEN 7 mg/dL (7-20); CALCIUM 9.9 mg/dL (8.4-10.2); CARBON DIOXIDE 27 mmol/L (22-30); CHLORIDE 103 mmol/L (98-107); CREATININE RESULT 0.79 mg/dL (0.52-1.25); GLUCOSE 112 mg/dL (75-110); LIPASE 25.2 U/L (23-300); POTASSIUM 4.3 mmol/L (3.6-5.0); SODIUM 142.3 mmol/L (137-145); TOTAL PROTEIN 6.7 g/dL (6.3-8.2)
--- NOTE | 2017-01-04 15:49 | ER Document Report ---
ED GI/ - General Chief Complaint: Abdominal Pain Stated Complaint: ABDOMINAL PAIN Mode of Arrival: Ambulatory Information source: Patient Notes: Patient was just discharged yesterday after a laparoscopic cholecystectomy with cholangiogram. Patient complains of nausea, vomiting and diarrhea today. Patient states that she has abdominal pain just below her umbilical incision. Patient states she's vomited 3 times and had diarrhea 4 times. Patient reports she was given a prescription but it was only written for 1 pain pill, so patient did not bother to get the prescription filled for only one pill. Patient denies any fever, cough, or urinary symptoms. TRAVEL OUTSIDE OF THE [place] IN LAST 30 DAYS: No - HPI Patient complains to provider of: Abdominal pain, Diarrhea, Vomiting. No: Vaginal discharge Onset: Yesterday Timing/Duration: Persistent Quality of pain: Sharp Pain Level: 5 Location: Other - Below umbilicus Adult Front & Back Diagram: 1 - Tenderness Vaginal bleeding (Compared to normal period): None Associated symptoms: Diarrhea, Nausea, Vomiting. denies: Chest pain, Dysuria, Fever, Shortness of breath, Urinary hesitancy, Urinary frequency, Urinary retention, Urinary urgency, Vaginal discharge Exacerbated by: Denies Relieved by: Denies Similar symptoms previously: No Recently seen / treated by doctor: Yes - Related Data Allergies/Adverse Reactions: Iodinated Contrast Media - Oral and Allergy (Verified 01/04/17 13:38) ketorolac [From Toradol] Allergy (Verified 01/04/17 13:38) ondansetron [From Zofran (as hydrochloride)] Allergy (Verified 01/04/17 13:38) Sulfa (Sulfonamide Antibiotics) Allergy (Verified 01/04/17 13:38) sulfamethoxazole [From Septra] Allergy (Verified 01/04/17 13:38) trimethoprim [From Septra] Allergy (Verified 01/04/17 13:38) Past Medical History - General Information source: Patient - Social History Smoking Status: Current Every Day Smoker Frequency of alcohol use: None Drug Abuse: None Occupation: none Lives with: Family Family History: CAD, CVA, Other - arthritis Patient has suicidal ideation: No Patient has homicidal ideation: No - Past Medical History Cardiac Medical History: Reports: Hx Congestive Heart Failure, Hx DVT, Hx Hypercholesterolemia, Hx Hypertension Denies: Hx Pulmonary Embolism Pulmonary Medical History: Reports: Hx COPD, Hx Pneumonia - x2 Neurological Medical History: Reports: Hx Seizures Endocrine Medical History: Reports: Hx Hypothyroidism. Denies: Hx Diabetes Mellitus Type 1, Hx Diabetes Mellitus Type 2, Hx Hyperthyroidism Renal/ Medical History: Reports: Hx Kidney Stones. Denies: Hx Peritoneal Dialysis Malignancy Medical History: Reports: Hx Breast Cancer, Hx Lymphoma GI Medical History: Reports: Hx Gastroesophageal Reflux Disease. Denies: Hx Cirrhosis, Hx Hepatitis Musculoskeltal Medical History: Reports Hx Arthritis Psychiatric Medical History: Reports: Hx Bipolar Disorder, Hx Depression Infectious Medical History: Denies: Hx Hepatitis Past Surgical History: Reports: Hx Appendectomy, Hx Cardiac Catheterization, Hx Genitourinary Surgery - Bladder tack, Hx Hysterectomy, Hx Kidney (Renal Surgery ) - stone removal, Hx Tubal Ligation - Immunizations Immunizations up to date: Yes Hx Diphtheria, Pertussis, Tetanus Vaccination: Yes Hx Pneumococcal Vaccination: 10/05/09 Review of Systems - Review of Systems Constitutional: No symptoms reported. denies: Fever, Recent illness EENT: No symptoms reported Cardiovascular: No symptoms reported. denies: Chest pain, Syncope, Dizziness, Lightheaded Respiratory: No symptoms reported. denies: Cough, Short of breath Gastrointestinal: Abdominal pain, Diarrhea, Nausea, Vomiting. denies: Constipation, Poor appetite Genitourinary: No symptoms reported. denies: Dysuria, Flank pain Female Genitourinary: No symptoms reported Musculoskeletal: No symptoms reported. denies: Back pain Skin: Change in color - Patient reports some redness below umbilical incision Hematologic/Lymphatic: No symptoms reported Neurological/Psychological: No symptoms reported Physical Exam - Vital signs Vitals: Temp Pulse Resp BP Pulse Ox 98.3 F 95 19 97/73 L 96 01/04/17 13:39 01/04/17 13:39 01/04/17 13:39 01/04/17 13:39 01/04/17 13:39 - General General appearance: Appears well, Alert In distress: None - HEENT Head: Normocephalic, Atraumatic Eyes: Normal Nasal: Normal Mouth/Lips: Normal Mucous membranes: Normal Neck: Normal, Supple. No: Lymphadenopathy - Respiratory Respiratory status: No respiratory distress Chest status: Nontender Breath sounds: Rales. No: Rhonchi, Stridor, Wheezing Chest palpation: Normal - Cardiovascular Rhythm: Regular Heart sounds: S1 appreciated, S2 appreciated Murmur: No - Abdominal Inspection: Healed incision, Other - Periumbilical ecchymosis Distension: No distension Bowel sounds: Normal Tenderness: Tender Organomegaly: No organomegaly - Tenderness to area just inferior to the umbilicus - Back Back: Normal, Nontender. No: CVA tenderness - Extremities General upper extremity: Normal inspection, Normal strength General lower extremity: Normal inspection, Normal strength - Neurological Neuro grossly intact: Yes Cognition: Normal Nicky Coma Scale Eye Opening: Spontaneous [place] Coma Scale Verbal: Oriented Nicky Coma Scale Motor: Obeys Commands Nicky Coma Scale Total: 15 - Skin Skin Temperature: Warm Skin Moisture: Dry Skin Color: Ecchymosis - Abdominal ecchymosis near her umbilical incision Course - Re-evaluation Re-evalutation: 01/04/17 16:[address] Barcenas who recommends non contrasted ct abd/pelvis for evaluation of postop pain. The patient is hypotensive here in the emergency department, patient is not symptomatic with it. Patient denies any chest pain, lightheadedness, dizziness or feeling faint. 01/04/17 16:28 director child went to bedside to attempt an IV, and reports that patient told her that she wanted to leave that she will just see her doctor tomorrow for recheck. Staff checked the front lobby, the bathroom as well as radiology department. Patient not in her room and appears to have eloped. 01/04/17 16:54 Patient not in room, radiology, bathroom or front lobby. Suspect that patient eloped. director child advised. 01/04/17 17:44 - Vital Signs Vital signs: Temp Pulse Resp BP Pulse Ox 98 F 88 20 89/67 L 96 01/04/17 14:45 01/04/17 14:45 01/04/17 14:45 01/04/17 14:45 01/04/17 14:45 - Laboratory Result Diagrams: 01/04/17 15:05 01/04/17 15:05 Laboratory results interpreted by me: 01/04/17 01/04/17 01/04/17 13:40 15:05 15:05 RDW 14.7 H Eosinophils % 6.9 H Glucose 112 H AST 75 H ALT 101 H Alkaline Phosphatase 224 H Urine Blood SMALL H 01/04/17 17:44 Labs- Entire Visit 01/04/17 01/04/17 01/04/17 13:40 15:05 15:05 WBC 7.1 RBC 4.18 Hgb 12.7 Hct 37.6 MCV 90 MCH 30.3 MCHC 33.7 RDW 14.7 H Plt Count 230 Seg Neutrophils % 61.7 Lymphocytes % 21.7 Monocytes % 8.7 Eosinophils % 6.9 H Basophils % 1.0 Absolute Neutrophils 4.4 Absolute Lymphocytes 1.5 Absolute Monocytes 0.6 Absolute Eosinophils 0.5 Absolute Basophils 0.1 Sodium 142.3 Potassium 4.3 Chloride 103 Carbon Dioxide 27 Anion Gap 12 BUN 7 Creatinine 0.79 Est GFR ( Amer) > 60 Est GFR (Non-Af Amer) > 60 Glucose 112 H Calcium 9.9 Total Bilirubin 0.4 Direct Bilirubin 0.2 Indirect Bilirubin Not Reportable Neonat Total Bilirubin Not Reportable AST 75 H ALT 101 H Alkaline Phosphatase 224 H Total Protein 6.7 Albumin 3.9 Lipase 25.2 Urine Color STRAW Urine Appearance CLEAR Urine pH 7.0 Ur Specific Dietrich 1.006 Urine Protein NEGATIVE Urine Glucose (UA) NEGATIVE Urine Ketones NEGATIVE Urine Blood SMALL H Urine Nitrite NEGATIVE Urine Bilirubin NEGATIVE Urine Urobilinogen NEGATIVE Ur Leukocyte Esterase NEGATIVE Urine WBC (Auto) 2 Urine RBC (Auto) 3 Urine Bacteria (Auto) TRACE Squamous Epi Cells Auto 1 Urine Mucus (Auto) RARE Urine Ascorbic Acid NEGATIVE Discharge - Discharge Clinical Impression: Abdominal pain Qualifiers: Abdominal location: lower abdomen, unspecified Qualified Code(s): R10.30 - Lower abdominal pain, unspecified Disposition: ELOPED
[2017-01-04] MEDS ORDERED: PROMETHAZINE HCL 25 MG TABLET PO ONE (16:02)
== END 2017-01-04 17:00 | disposition left against medical advice (07) ==
LOC: ER 13:25
DX: R10.30 Lower abdominal pain, unspecified (principal); R10.9 Unspecified abdominal pain; R11.10 Vomiting, unspecified; R19.7 Diarrhea, unspecified; Z79.899 Other long term (current) drug therapy; F17.200 Nicotine dependence, unspecified, uncomplicated
CPT/HCPCS: 36415; 80053; 81001; 83690; 85025; 99281

== ENCOUNTER 2017-01-15 10:57 | Emergency (ER) | payer MEDICARE, MEDICAID ==
[2017-01-15 11:02] VITALS: BP 110/69
[2017-01-15] MEDS ORDERED: IBUPROFEN 600 MG TABLET PO ONE (11:29)
[2017-01-15] MEDS ORDERED: HYDROCODONE/ACETAMINOPHEN 5-325 MG TABLET PO ONE (11:29)
--- NOTE | 2017-01-15 11:55 | ER Document Report ---
ED GI/ - General Chief Complaint: Flank Pain Stated Complaint: ABDOMINAL PAIN Notes: The patient is a 51-year-old female, past medical history frequent kidney stones requiring stents, prior CVA, presents with 2 weeks of intermittent right flank pain and hematuria, worsening over the past day. She took Motrin without much relief this morning. She denies nausea, vomiting, fever, headache, chest pain, shortness of breath or dysuria. TRAVEL OUTSIDE OF THE [place] IN LAST 30 DAYS: No - Related Data Allergies/Adverse Reactions: Iodinated Contrast Media - Oral and Allergy (Verified 01/15/17 11:07) ketorolac [From Toradol] Allergy (Verified 01/15/17 11:07) ondansetron [From Zofran (as hydrochloride)] Allergy (Verified 01/15/17 11:07) Sulfa (Sulfonamide Antibiotics) Allergy (Verified 01/15/17 11:07) sulfamethoxazole [From Septra] Allergy (Verified 01/15/17 11:07) trimethoprim [From Septra] Allergy (Verified 01/15/17 11:07) Past Medical History - General Information source: Patient - Social History Smoking Status: Unknown if Ever Smoked Family History: CAD, CVA, Other - arthritis - Past Medical History Cardiac Medical History: Reports: Hx Congestive Heart Failure, Hx DVT, Hx Hypercholesterolemia, Hx Hypertension Denies: Hx Pulmonary Embolism Pulmonary Medical History: Reports: Hx COPD, Hx Pneumonia - x2 Neurological Medical History: Reports: Hx Seizures Endocrine Medical History: Reports: Hx Hypothyroidism. Denies: Hx Diabetes Mellitus Type 1, Hx Diabetes Mellitus Type 2, Hx Hyperthyroidism Renal/ Medical History: Reports: Hx Kidney Stones. Denies: Hx Peritoneal Dialysis Malignancy Medical History: Reports: Hx Breast Cancer, Hx Lymphoma GI Medical History: Reports: Hx Gastroesophageal Reflux Disease. Denies: Hx Cirrhosis, Hx Hepatitis Musculoskeltal Medical History: Reports Hx Arthritis Psychiatric Medical History: Reports: Hx Bipolar Disorder, Hx Depression Infectious Medical History: Denies: Hx Hepatitis Past Surgical History: Reports: Hx Appendectomy, Hx Cardiac Catheterization, Hx Genitourinary Surgery - Bladder tack, Hx Hysterectomy, Hx Kidney (Renal Surgery ) - stone removal, Hx Tubal Ligation - Immunizations Immunizations up to date: Yes Hx Diphtheria, Pertussis, Tetanus Vaccination: Yes Hx Pneumococcal Vaccination: 10/05/09 Review of Systems - Review of Systems Notes: REVIEW OF SYSTEMS: CONSTITUTIONAL: -fevers, -chills EENT: -eye pain, -difficulty swallowing, -nasal congestion CARDIOVASCULAR:-chest pain, -syncope. RESPIRATORY: -cough, -SOB GASTROINTESTINAL: -abdominal pain, - nausea, -vomiting, -diarrhea GENITOURINARY: -dysuria, +hematuria MUSCULOSKELETAL: +right flank pain, -neck pain SKIN: -rash or skin lesions. HEMATOLOGIC: -easy bruising or bleeding. LYMPHATIC: -swollen, enlarged glands. NEUROLOGICAL: -altered mental status or loss of consciousness, -headache, - neurologic symptoms PSYCHIATRIC: -anxiety, -depression. ALL OTHER SYSTEMS REVIEWED AND NEGATIVE. Physical Exam - Vital signs Vitals: Temp Pulse Resp BP Pulse Ox 98.1 F 83 14 110/69 93 01/15/17 10:58 01/15/17 10:58 01/15/17 10:58 01/15/17 10:58 01/15/17 10:58 - Notes Notes: PHYSICAL EXAMINATION: GENERAL: Well-appearing, well-nourished and in no acute distress. HEAD: Atraumatic, normocephalic. EYES: Pupils equal round and reactive to light, extraocular movements intact, sclera anicteric, conjunctiva are normal. ENT: nares patent, oropharynx clear without exudates. Moist mucous membranes. NECK: Normal range of motion, supple without lymphadenopathy LUNGS: Breath sounds clear to auscultation bilaterally and equal. No wheezes rales or rhonchi. HEART: Regular rate and rhythm without murmurs ABDOMEN: Soft, nontender, normoactive bowel sounds. No guarding, no rebound. No masses appreciated. EXTREMITIES: Normal range of motion, no pitting or edema. No cyanosis. NEUROLOGICAL: Cranial nerves grossly intact. Normal speech, normal gait. Normal sensory, motor, and reflex exams. PSYCH: Normal mood, normal affect. SKIN: Warm, Dry, normal turgor, no rashes or lesions noted. Course - Re-evaluation Re-evalutation: Patient's pain is under control and she has not vomited while in the emergency room. She is tolerating food. She appears nontoxic. Her CAT scan shows bilateral nonobstructing renal calyceal stones, but no hydronephrosis or obstruction. Her urinalysis does show evidence of a UTI. Will treat for early pyelonephritis with Keflex. Her stones or chronic in nature. Given strict return precautions and she understands. - Vital Signs Vital signs: Temp Pulse Resp BP Pulse Ox 98.1 F 83 14 110/69 93 01/15/17 10:58 01/15/17 10:58 01/15/17 10:58 01/15/17 10:58 01/15/17 10:58 - Laboratory Laboratory results interpreted by me: 01/15/17 11:20 Urine Blood SMALL H Urine Nitrite POSITIVE H Ur Leukocyte Esterase LARGE H - Diagnostic Test Radiology reviewed: Image reviewed, Reports reviewed Radiology results interpreted by me: CT A/P: IMPRESSION: NONOBSTRUCTING CALYCEAL CALCULI IN BOTH KIDNEYS. NO URETERAL CALCULI OR OBSTRUCTIVE UROPATHY. NO OTHER SIGNIFICANT OR ACUTE PROCESS IN THE ABDOMEN OR PELVIS. Discharge - Discharge Clinical Impression: Right flank pain UTI (urinary tract infection) Qualifiers: Urinary tract infection type: site unspecified Hematuria presence: with hematuria Qualified Code(s): N39.0 - Urinary tract infection, site not specified ; R31.9 - Hematuria, unspecified Condition: Good Disposition: HOME, SELF-CARE Additional Instructions: PYELONEPHRITIS: Your evaluation shows evidence of pyelonephritis. This is an infection in the kidney. Typical symptoms are fever, pain in the flank, pain on urination, and frequent urination. Many cases of pyelonephritis can be treated at home. Hospital care may be necessary for patients who are very ill, or elderly or . Pyelonephritis is treated with antibiotics. Be sure to take all the medication as prescribed. Drink plenty of liquids (about three quarts per day) . You may take acetaminophen for fever. You should feel significantly improved within two days. You should have a recheck of your urine in about one week to insure that the infection is gone. Return for a re-examination if your symptoms worsen in any way -- such as high fever, shaking chills, severe weakness or dizziness, severe pain, or inability to pass your urine. ANTINAUSEA MEDICATION: You have been given a medication to suppress nausea and vomiting. This type of medication can be given as a shot, pill, or suppository. It will usually last for many hours. Pills and shots usually last six to eight hours, suppositories last about 12 hours. For the typical illness, only one or two doses of the medication may be necessary. Mild lightheadedness may occur. This type of medicine can cause drowsiness. Do not drive or operate dangerous machinery while under its influence. Do not mix with alcohol. See your doctor at once if you have muscle spasms or tightness, or uncontrollable motions (particularly of the neck, mouth, or jaw). Persistent vomiting or severe lightheadedness should also be evaluated by the physician. ANTIBIOTIC THERAPY: You have been given an antibiotic prescription. It's important that you take all the medication, unless instructed otherwise by your physician. Failure to complete the entire course can result in relapse of your condition. Common side effects of antibiotics include nausea, intestinal cramping, or diarrhea. Women may develop vaginal yeast infections, and babies can get yeast (thrush) in the mouth following the use of antibiotics. Contact your physician if you develop significant side effects from this medication. Allergy to this antibiotic can result in hives, wheezing, faintness, or itching. If symptoms of allergy occur, stop the medication and call the doctor. CEPHALEXIN: The antibiotic you've been prescribed is a member of the cephalosporin class. This type of antibiotic covers a wide variety of infections, including those of the skin, lungs, and urinary tract. It's useful for staph infections. This antibiotic is slightly similar to the penicillin family. In rare cases , a person who is allergic to penicillin will also be allergic to this medication. If you have had a severe allergic reaction to penicillin, and have not taken this antibiotic since that time, notify your doctor. Antibiotics which cover many germs ("broad spectrum" antibiotics) are more likely to cause diarrhea or "yeast" infections. Women prone to vaginal yeast problems may suffer an attack after taking this antibiotic. In infants, oral thrush (white spots "stuck" on the cheek) or yeast diaper rash may result. See your doctor if these problems occur. Call at once if you develop itching, hives , shortness of breath, or lightheadedness. USE OF ACETAMINOPHEN (Tylenol): Acetaminophen may be taken for pain relief or fever control. It's much safer than aspirin, offering a wider range of "safe" dosages. It is safe during . Some brand names are Tylenol, Panadol, Datril, Anacin 3, Tempra, and Liquiprin. Acetaminophen can be repeated every four hours. The following are maximum recommended dosages: >89 pounds or adults 650 mg to 900 mg Acetaminophen can be repeated every four hours. Maximum dose not to exceed 4000 mg a day. ORAL NARCOTIC MEDICATION: You have been given a prescription for pain control. This medication is a narcotic. It's best taken with food, as nausea can result if taken on an empty stomach. Don't operate machinery or drive within six hours of taking this medication. Do not combine this medicine with alcohol, or with any medication which can cause sedation (such as cold tablets or sleeping pills) unless you get permission from the physician. Narcotics tend to cause constipation. If possible, drink plenty of fluids and eat a diet high in fiber and fruits. Please be aware that prescription narcotics also have the potential for abuse. People become addicted to these medications because of the general sense of wellbeing that they induce. This feeling along with a significant reduction in tension, anxiety, and aggression provides a stimulating seductive quality to these drugs. Once your pain is under control, we encourage you to discard your unused narcotics. FOLLOW-UP CARE: If you have been referred to a physician for follow-up care, call the physician s office for an appointment as you were instructed or within the next two days. If you experience worsening or a significant change in your symptoms, notify the physician immediately or return to the Emergency Department at any time for re-evaluation. Prescriptions: Acetaminophen with Codeine [Tylenol #3 Tablet] 1 each PO Q4HP PRN #10 tablet PRN Reason: Cephalexin Monohydrate [Keflex 500 mg Capsule] 500 mg PO Q8H #30 capsule Phenazopyridine HCl [Pyridium 100 Mg Tablet] 100 mg PO Q8H PRN #9 tablet PRN Reason: Promethazine HCl [Phenergan 25 mg Tablet] 1 - 2 tab PO Q6H PRN #15 tablet PRN Reason:
[2017-01-15 12:39] LABS: APPEARANCE,URINE CLOUDY; BILIRUBIN,URINE NEGATIVE (NEGATIVE); CALCIUM OXALATE CRYSTALS,URINE FEW /HPF; GLUCOSE, URINE NEGATIVE (NEGATIVE); KETONES,URINE NEGATIVE (NEGATIVE); LEUKOCYTE ESTERASE,URINE LARGE (NEGATIVE); NITRITE,URINE POSITIVE (NEGATIVE); PROTEIN,URINE NEGATIVE (NEGATIVE); URINE SPECIFIC GRAVITY 1.011; UROBILINOGEN,URINE NEGATIVE mg/dL (<2.0)
== END 2017-01-15 13:08 | disposition home or self-care (01) ==
LOC: ER 10:57
DX: N39.0 Urinary tract infection, site not specified (principal); R31.9 Hematuria, unspecified; R10.9 Unspecified abdominal pain; R11.10 Vomiting, unspecified; I50.9 Heart failure, unspecified; E78.00 Pure hypercholesterolemia, unspecified; I11.0 Hypertensive heart disease with heart failure; J44.9 Chronic obstructive pulmonary disease, unspecified; E03.9 Hypothyroidism, unspecified; Z87.442 Personal history of urinary calculi; Z86.718 Personal history of other venous thrombosis and embolism; Z85.3 Personal history of malignant neoplasm of breast; Z90.710 Acquired absence of both cervix and uterus
CPT/HCPCS: 99284; 81001; 74176; A9270 ×2

== ENCOUNTER 2017-01-17 23:01 | Emergency (ER) | payer MEDICARE, MEDICAID ==
[2017-01-18 00:06] LABS: ABSOLUTE BASOPHILS # (AUTO) 0.1 10^3/uL (0.0-0.2); ABSOLUTE EOSINOPHILS # (AUTO) 0.5 10^3/uL (0.0-0.6); ABSOLUTE LYMPHOCYTES (AUTO) 1.4 10^3/uL (0.5-4.7); ABSOLUTE MONOCYTES (AUTO) 0.5 10^3/uL (0.1-1.4); ABSOLUTE NEUT (AUTO) 2.3 10^3/uL (1.7-8.2); BASOPHILS % (AUTO) 1.4 % (0-2); EOSINOPHILS % (AUTO) 11.1 % (0-6); HEMATOCRIT 34.1 % (36.0-47.0); HEMOGLOBIN 11.8 g/dL (12.0-15.5); HGB HCT DIFFERENCE 1.3; LYMPHOCYTES % (AUTO) 29.7 % (13-45); MEAN CORPUSCULAR HEMOGLOBIN 30.5 pg (27.0-33.4); MEAN CORPUSCULAR HGB CONC 34.6 g/dL (32.0-36.0); MEAN CORPUSCULAR VOLUME 88 fl (80-97); RED BLOOD COUNT 3.86 10^6/uL (3.72-5.28); RED CELL DISTRIBUTION WIDTH 14.6 % (11.5-14.0); SEGMENTED NEUTROPHILS % (AUTO) 47.8 % (42-78); WHITE BLOOD COUNT 4.8 10^3/uL (4.0-10.5)
[2017-01-18 00:11] LABS: PROTHROMBIN TIME 13.4 SEC (11.4-15.4)
[2017-01-18 00:12] LABS: PARTIAL THROMBOPLASTIN TIME 34.7 SEC (23.5-35.8)
[2017-01-18 00:21] LABS: ALBUMIN 3.4 g/dL (3.5-5.0); ALKALINE PHOSPHATASE 250 U/L (38-126); ANION GAP 11 (5-19); ASPARTATE AMINO TRANSFERASE 162 U/L (14-36); BILIRUBIN,DIRECT 0.1 mg/dL (0.0-0.4); BILIRUBIN,TOTAL 0.4 mg/dL (0.2-1.3); BLOOD UREA NITROGEN 7 mg/dL (7-20); CALCIUM 9.2 mg/dL (8.4-10.2); CARBON DIOXIDE 24 mmol/L (22-30); CHLORIDE 109 mmol/L (98-107); CREATININE RESULT 0.66 mg/dL (0.52-1.25); GLUCOSE 100 mg/dL (75-110); NEONATAL BILIRUBIN RESULT 0.3 mg/dL (0.1-1.1); SODIUM 143.8 mmol/L (137-145); TOTAL PROTEIN 6.2 g/dL (6.3-8.2)
[2017-01-18 00:57] LABS: ALANINE AMINOTRANSFERASE 139 U/L (9-52); LIPASE 17.9 U/L (23-300); POTASSIUM 3.9 mmol/L (3.6-5.0)
[2017-01-18 00:58] LABS: ALCOHOL < 10 mg/dL (NONE DETECTED)
[2017-01-18 00:58] LABS: APPEARANCE,URINE CLEAR; BILIRUBIN,URINE NEGATIVE (NEGATIVE); GLUCOSE, URINE NEGATIVE (NEGATIVE); KETONES,URINE NEGATIVE (NEGATIVE); LEUKOCYTE ESTERASE,URINE NEGATIVE (NEGATIVE); NITRITE,URINE NEGATIVE (NEGATIVE); PROTEIN,URINE NEGATIVE (NEGATIVE); URINE SPECIFIC GRAVITY 1.004; UROBILINOGEN,URINE NEGATIVE mg/dL (<2.0)
[2017-01-18 01:11] LABS: URINE BARBITURATES SCREEN NEGATIVE; URINE METHADONE SCREEN NEGATIVE; URINE OPIATES LOW NEGATIVE; URINE PHENCYCLIDINE SCREEN NEGATIVE
[2017-01-18] MEDS ORDERED: NORMAL SALINE 1000 ML 1,000 ML IV ONE (02:04)
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
[2017-01-18 04:23] VITALS: BP 106/75
== END 2017-01-18 04:56 | disposition home or self-care (01) ==
LOC: ER 23:01
DX: N39.0 Urinary tract infection, site not specified (principal); R31.9 Hematuria, unspecified; R10.9 Unspecified abdominal pain
CPT/HCPCS: 99285; 96360; 36415; 80307 ×2; 83690; 84443; 85025; 85610; 85730; 82272; 80053; 81001; 71020; 73080; 76705; 70450; 74176; J7030

== ENCOUNTER 2017-02-06 23:41 | Emergency (ER) | payer MEDICARE, MEDICAID ==
--- NOTE | 2017-02-07 00:47 | ER Document Report ---
ED General - General Chief Complaint: Chest Pain > 30 Stated Complaint: CHEST PAIN Mode of Arrival: Medic Information source: Patient Notes: This is a 52-year-old female with a prior history of cerebral palsy, prior CVA with right-sided weakness, history of opiate and benzo dependence and drug- seeking behavior in the past, and history of chronic chest pain with negative cardiac catheter in the past, who is well-known to this facility who presents via EMS with complaint of chest pain. She states that about an hour ago she developed sharp stabbing central chest pain. At times it will radiate to her left shoulder. No shortness of breath or nausea. Of note patient was admitted to this facility from December 28 to January 03. She was initially admitted for chest pain to rule out ACS. She was seen by cardiology Dr. Auguste who felt that she had noncardiac chest pain. During that hospitalization she also underwent a laparoscopic cholecystectomy. She also had a psychiatric evaluation secondary to chronic opiate dependence and her desire for help with this. Tonight via EMS she did receive aspirin, one sublingual nitroglycerin, and 25 mg of Benadryl in route. TRAVEL OUTSIDE OF THE [place] IN LAST 30 DAYS: No - Related Data Allergies/Adverse Reactions: Iodinated Contrast Media - Oral and Allergy (Verified 01/18/17 01:25) ketorolac [From Toradol] Allergy (Verified 01/18/17 01:25) ondansetron [From Zofran (as hydrochloride)] Allergy (Verified 01/18/17 01:25) Sulfa (Sulfonamide Antibiotics) Allergy (Verified 01/18/17 01:25) sulfamethoxazole [From Septra] Allergy (Verified 01/18/17 01:25) trimethoprim [From Septra] Allergy (Verified 01/18/17 01:25) Past Medical History - Social History Smoking Status: Current Every Day Smoker Chew tobacco use (# tins/day): No Frequency of alcohol use: None Drug Abuse: None Family History: CAD, CVA, Other - arthritis Patient has suicidal ideation: No Patient has homicidal ideation: No - Past Medical History Cardiac Medical History: Reports: Hx Congestive Heart Failure, Hx DVT, Hx Hypercholesterolemia, Hx Hypertension Denies: Hx Pulmonary Embolism Pulmonary Medical History: Reports: Hx COPD, Hx Pneumonia - x2 Neurological Medical History: Reports: Hx Seizures Endocrine Medical History: Reports: Hx Hypothyroidism. Denies: Hx Diabetes Mellitus Type 1, Hx Diabetes Mellitus Type 2, Hx Hyperthyroidism Renal/ Medical History: Reports: Hx Kidney Stones. Denies: Hx Peritoneal Dialysis Malignancy Medical History: Reports: Hx Breast Cancer, Hx Lymphoma GI Medical History: Reports: Hx Gastroesophageal Reflux Disease. Denies: Hx Cirrhosis, Hx Hepatitis Musculoskeltal Medical History: Reports Hx Arthritis Psychiatric Medical History: Reports: Hx Bipolar Disorder, Hx Depression Infectious Medical History: Denies: Hx Hepatitis Past Surgical History: Reports: Hx Appendectomy, Hx Cardiac Catheterization, Hx Genitourinary Surgery - Bladder tack, Hx Hysterectomy, Hx Kidney (Renal Surgery ) - stone removal, Hx Tubal Ligation - Immunizations Immunizations up to date: Yes Hx Diphtheria, Pertussis, Tetanus Vaccination: Yes Hx Pneumococcal Vaccination: 10/05/09 Physical Exam - Vital signs Vitals: Resp BP 11 L 107/82 02/06/17 23:57 02/06/17 23:57 - Notes Notes: PHYSICAL EXAMINATION: GENERAL: Well-appearing elderly female (appears older than stated age) pleasant and conversant and in no acute distress. HEAD: Atraumatic, normocephalic. EYES: Pupils equal round and reactive to light, extraocular movements intact, sclera anicteric, conjunctiva are normal. ENT: nares patent, oropharynx clear without exudates. Moist mucous membranes. NECK: Normal range of motion, supple without lymphadenopathy LUNGS: Breath sounds clear to auscultation bilaterally and equal. No wheezes rales or rhonchi. HEART: Regular rate and rhythm without murmurs ABDOMEN: Soft, nontender, normoactive bowel sounds. No guarding, no rebound. No masses appreciated. EXTREMITIES: Normal range of motion, no edema. NEUROLOGICAL: no gross focal motor or sensory deficits, pt is at her baseline PSYCH: Normal mood, normal affect. SKIN: Warm, Dry, normal turgor, no rashes or lesions noted. Course - Re-evaluation Re-evalutation: 02/07/17 04:57 Patient has remained hemodynamically stable and asymptomatic in the ER. She has been noted to be sleeping comfortably. Her second troponin is negative. Her lab evaluation does demonstrate elevated AST and ALT however this is chronic and the levels today are much improved from prior. She has had multiple cardiac workups in the past and has been recently evaluated by cardiology here . At this point I do not suspect acute coronary syndrome or cardiac cause of her chest pain. She will follow up with her primary care physician this week. We did discuss strict return precautions. She is smiling, states she feels well, and she is very comfortable with this plan. - Vital Signs Vital signs: Temp Pulse Resp BP Pulse Ox 98.2 F 76 16 114/75 95 02/07/17 00:15 02/07/17 05:32 02/07/17 05:32 02/07/17 05:32 02/07/17 05:32 - Laboratory Result Diagrams: 02/07/17 00:35 02/07/17 00:35 Laboratory results interpreted by me: 02/07/17 02/07/17 00:35 00:35 RBC 3.67 L Hgb 11.3 L Hct 32.8 L RDW 15.5 H Seg Neutrophils % 31.4 L Lymphocytes % 46.4 H Monocytes % 13.6 H Eosinophils % 7.3 H Absolute Neutrophils 1.5 L AST 57 H ALT 74 H Alkaline Phosphatase 254 H Total Protein 6.0 L Albumin 3.0 L - Diagnostic Test Radiology reviewed: Reports reviewed - CXR: negative Discharge - Discharge Clinical Impression: Atypical chest pain, Elevated LFTs Condition: Stable Disposition: HOME, SELF-CARE Additional Instructions: CHEST PAIN OF UNCLEAR CAUSE: The exact cause of your chest pain isn't clear. Fortunately, there is no evidence of a dangerous medical condition. Further testing may be required to find the source of the pain. Most often, we find that this pain is coming from the chest wall -- the muscles or rib joints in the chest. But chest pain can come from the lung and lung lining, the esophagus, the heart valves or heart lining, and even the stomach or gallbladder. Rest. Eat lightly until the pain is gone. We may prescribe medicine for pain and inflammation. You should call the physician immediately if the pain radiates to the shoulder, jaw or arms; if you start to run a fever or develop a cough; or if you develop shortness of breath, or other new or alarming symptoms. FOLLOW-UP CARE: If you have been referred to a physician for follow-up care, call the physician s office for an appointment as you were instructed or within the next two days. If you experience worsening or a significant change in your symptoms, notify the physician immediately or return to the Emergency Department at any time for re-evaluation. As discussed, follow up with your primary care physician on Thursday. Return to the ER for increased chest pain, fever, breathing difficulty, or any worsening symptoms or concerns.
[2017-02-07 01:00] LABS: ABSOLUTE BASOPHILS # (AUTO) 0.1 10^3/uL (0.0-0.2); ABSOLUTE EOSINOPHILS # (AUTO) 0.4 10^3/uL (0.0-0.6); ABSOLUTE LYMPHOCYTES (AUTO) 2.2 10^3/uL (0.5-4.7); ABSOLUTE MONOCYTES (AUTO) 0.7 10^3/uL (0.1-1.4); ABSOLUTE NEUT (AUTO) 1.5 10^3/uL (1.7-8.2); BASOPHILS % (AUTO) 1.3 % (0-2); EOSINOPHILS % (AUTO) 7.3 % (0-6); HEMATOCRIT 32.8 % (36.0-47.0); HEMOGLOBIN 11.3 g/dL (12.0-15.5); HGB HCT DIFFERENCE 1.1; LYMPHOCYTES % (AUTO) 46.4 % (13-45); MEAN CORPUSCULAR HEMOGLOBIN 30.9 pg (27.0-33.4); MEAN CORPUSCULAR HGB CONC 34.6 g/dL (32.0-36.0); MEAN CORPUSCULAR VOLUME 89 fl (80-97); MONOCYTES % (AUTO) 13.6 % (3-13); RED BLOOD COUNT 3.67 10^6/uL (3.72-5.28); RED CELL DISTRIBUTION WIDTH 15.5 % (11.5-14.0); SEGMENTED NEUTROPHILS % (AUTO) 31.4 % (42-78); WHITE BLOOD COUNT 4.8 10^3/uL (4.0-10.5)
[2017-02-07] MEDS ORDERED: LIDOCAINE 2% VISCOUS SOLN 20 ML UDCUP PO ONE (01:00)
[2017-02-07] MEDS ORDERED: METOCLOPRAMIDE HCL ORAL SOLN 10 MG/10 ML UDCUP PO ONE (01:00)
[2017-02-07] MEDS ORDERED: MAG HYDROX/AL HYDROX/SIMETH SUSP 30 ML UDCUP PO ONE (01:00)
[2017-02-07 01:18] LABS: ALANINE AMINOTRANSFERASE 74 U/L (9-52); ALKALINE PHOSPHATASE 254 U/L (38-126); ANION GAP 10 (5-19); ASPARTATE AMINO TRANSFERASE 57 U/L (14-36); BILIRUBIN,DIRECT 0.4 mg/dL (0.0-0.4); BILIRUBIN,TOTAL 0.5 mg/dL (0.2-1.3); BLOOD UREA NITROGEN 10 mg/dL (7-20); CALCIUM 8.8 mg/dL (8.4-10.2); CARBON DIOXIDE 27 mmol/L (22-30); CHLORIDE 107 mmol/L (98-107); CREATINE KINASE 68 U/L (30-135); CREATININE RESULT 0.77 mg/dL (0.52-1.25); GLUCOSE 89 mg/dL (75-110); POTASSIUM 4.2 mmol/L (3.6-5.0); SODIUM 143.6 mmol/L (137-145)
[2017-02-07 01:27] LABS: CREATINE KINASE MB 0.74 ng/mL (<4.55)
[2017-02-07 01:33] LABS: PROTHROMBIN TIME 12.4 SEC (11.4-15.4)
[2017-02-07 01:34] LABS: TROPONIN I < 0.012 ng/mL
[2017-02-07 05:33] VITALS: BP 114/75
--- NOTE | 2017-02-07 07:44 | EKG REPORT ---
SEVERITY:- NORMAL ECG - SINUS RHYTHM : Confirmed by: Bridger Whitley MD 07-Feb-2017 07:43:26
== END 2017-02-07 05:31 | disposition home or self-care (01) ==
LOC: ER 23:41
DX: R07.89 Other chest pain (principal); R94.5 Abnormal results of liver function studies; I69.951 Hemiplegia and hemiparesis following unspecified cerebrovascular disease affecting right dominant side; F17.200 Nicotine dependence, unspecified, uncomplicated; I50.9 Heart failure, unspecified; I11.0 Hypertensive heart disease with heart failure; E78.00 Pure hypercholesterolemia, unspecified; J44.9 Chronic obstructive pulmonary disease, unspecified; Z86.718 Personal history of other venous thrombosis and embolism; E03.9 Hypothyroidism, unspecified; Z88.2 Allergy status to sulfonamides; Z87.442 Personal history of urinary calculi; Z85.3 Personal history of malignant neoplasm of breast; Z90.710 Acquired absence of both cervix and uterus
CPT/HCPCS: 93005; 99285; 36415; 82553; 82550; 85025; 85610; 80053; 84484; 71010; 93010; J3490; A9270

== ENCOUNTER 2017-02-14 22:40 | Emergency (ER) | payer MEDICARE, MEDICAID ==
[2017-02-14] MEDS ORDERED: NORMAL SALINE 1000 ML 1,000 ML IV ONE (22:48)
[2017-02-14] MEDS ORDERED: ACETAMINOPHEN 325 MG TABLET PO ONE (22:49)
[2017-02-14] MEDS ORDERED: PROMETHAZINE HCL INJ 25 MG/1 ML VIAL IM ONE (22:49)
--- NOTE | 2017-02-14 22:52 | ER Document Report ---
ED General - General Stated Complaint: FALL,POSSIBLE FLANK PAIN Time Seen by Provider: 02/14/17 22:43 Notes: Patient is a 52-year-old female with a history of kidney stones, opiate dependence, and benzo dependence who presents with complaint of left flank pain. Patient says that she's had several cases since the past. She says feels exactly the same. She denies any dysuria. Some pains in left side. No fevers. Some vomiting. Pain started today. She has no other complaints at this time. She apparently fell out front in the waiting room. I saw her on the floor in front of the triage waiting desk. I did not see her fall. Patient says she did not fully fall anf=d that she laid on the ground because of her pain. She denies any injuries from going to the ground. There was no loss of consciousness. Patient has history of cerebral palsy. TRAVEL OUTSIDE OF THE [place] IN LAST 30 DAYS: No - Related Data Allergies/Adverse Reactions: Iodinated Contrast Media - Oral and Allergy (Verified 01/18/17 01:25) ketorolac [From Toradol] Allergy (Verified 01/18/17 01:25) ondansetron [From Zofran (as hydrochloride)] Allergy (Verified 01/18/17 01:25) Sulfa (Sulfonamide Antibiotics) Allergy (Verified 01/18/17 01:25) sulfamethoxazole [From Septra] Allergy (Verified 01/18/17 01:25) trimethoprim [From Septra] Allergy (Verified 01/18/17 01:25) Past Medical History - Social History Smoking Status: Current Every Day Smoker Frequency of alcohol use: None Drug Abuse: None Family History: CAD, CVA, Other - arthritis - Past Medical History Cardiac Medical History: Reports: Hx Congestive Heart Failure, Hx DVT, Hx Hypercholesterolemia, Hx Hypertension Denies: Hx Pulmonary Embolism Pulmonary Medical History: Reports: Hx COPD, Hx Pneumonia - x2 Neurological Medical History: Reports: Hx Seizures Endocrine Medical History: Reports: Hx Hypothyroidism. Denies: Hx Diabetes Mellitus Type 1, Hx Diabetes Mellitus Type 2, Hx Hyperthyroidism Renal/ Medical History: Reports: Hx Kidney Stones. Denies: Hx Peritoneal Dialysis Malignancy Medical History: Reports: Hx Breast Cancer, Hx Lymphoma GI Medical History: Reports: Hx Gastroesophageal Reflux Disease. Denies: Hx Cirrhosis, Hx Hepatitis Musculoskeltal Medical History: Reports Hx Arthritis Psychiatric Medical History: Reports: Hx Bipolar Disorder, Hx Depression Infectious Medical History: Denies: Hx Hepatitis Past Surgical History: Reports: Hx Appendectomy, Hx Cardiac Catheterization, Hx Genitourinary Surgery - Bladder tack, Hx Hysterectomy, Hx Kidney (Renal Surgery ) - stone removal, Hx Tubal Ligation - Immunizations Immunizations up to date: Yes Hx Diphtheria, Pertussis, Tetanus Vaccination: Yes Hx Pneumococcal Vaccination: 10/05/09 Review of Systems - Review of Systems Notes: My Normal Review Basic REVIEW OF SYSTEMS: CONSTITUTIONAL : Denies fever, chills, or sweats. Denies recent illness. EENT: Denies eye, ear, throat, or mouth pain or symptoms. Denies nasal or sinus congestion. CARDIOVASCULAR: Denies chest pain. RESPIRATORY: Denies cough, cold, or chest congestion. Denies shortness of breath, difficulty breathing, or wheezing. GASTROINTESTINAL: Left lower quadrant abdominal pain and left flank pain. Some nausea. Denies constipation. Last BM: GENITOURINARY: Left flank pain. MUSCULOSKELETAL: Denies neck or back pain or joint pain or swelling. SKIN: Denies rash or skin lesions. NEUROLOGICAL: Denies altered mental status or loss of consciousness. Denies headache. Denies weakness or paralysis or loss of use of either side. Denies problems with gait or speech. Denies sensory or motor loss. ALL OTHER SYSTEMS REVIEWED AND NEGATIVE. Physical Exam - Notes Notes: General Appearance: Well nourished, alert, cooperative, no acute distress, moderate obvious discomfort. Vitals: reviewed, See vital signs table. Head: no swelling or tenderness to the head Eyes: PERRL, EOMI, Conjuctiva clear Mouth: No decreasd moisture Neck: Supple, no neck tenderness, No thyromegaly Lungs: No wheezing, No rales, No rhonci, No accessory muscle use, good air exchange bilaterally. Heart: Normal rate, Regular rythm, No murmur, no rub Abdomen: Normal BS, soft, No rigidity, pain to palpation in left lower quadrant of abdomen and left flank. Remainder of abdomen is nontender., No guarding, no rebound, no abdominal masses, no organomegaly Extremities: strength 5/5 in all extremities, good pulses in all extremities, no swelling or tenderness in the extremities, no edema. Skin: warm, dry, appropriate color, no rash Neuro: speech clear, oriented x 3, normal affect, responds appropriately to questions. Course - Transfer of Care Notes: 02/14/17 23:38 After came out of another patient's room the nurse came to me that the patient' s decided to leave because she wants a stronger than Tylenol for her pain. Patient is already left AMA prior to me being able to go to the room to talk to her. I did review the patient's CT scan and there is no evidence of intraureteral stone worsens and calls for pain. Reason why give the patient home on the beginning of is that patient does have a history of known substance abuse. I found this in reviewing her records. If the CT scan did show a stone by all means a lot of treated her pain was something stronger. CT scan eventually has come back without showing any evidence of intrarenal stone or cause for the pain that she was describing. Dictation of this chart was performed using voice recognition software; therefore, there may be some unintended grammatical errors.
[2017-02-14] MEDS ORDERED: PROMETHAZINE HCL INJ 50 MG/1 ML VIAL ONE (23:34)
[2017-02-14 23:50] LABS: APPEARANCE,URINE CLEAR; BILIRUBIN,URINE NEGATIVE (NEGATIVE); GLUCOSE, URINE NEGATIVE (NEGATIVE); KETONES,URINE NEGATIVE (NEGATIVE); LEUKOCYTE ESTERASE,URINE NEGATIVE (NEGATIVE); NITRITE,URINE NEGATIVE (NEGATIVE); PROTEIN,URINE NEGATIVE (NEGATIVE); URINE SPECIFIC GRAVITY 1.009; UROBILINOGEN,URINE NEGATIVE mg/dL (<2.0)
== END 2017-02-14 23:41 | disposition left against medical advice (07) ==
LOC: ER 22:40
DX: R10.9 Unspecified abdominal pain (principal); R10.32 Left lower quadrant pain; R11.10 Vomiting, unspecified; I10 Essential (primary) hypertension; J44.9 Chronic obstructive pulmonary disease, unspecified; G80.9 Cerebral palsy, unspecified; F17.200 Nicotine dependence, unspecified, uncomplicated; Z87.442 Personal history of urinary calculi; Z91.041 Radiographic dye allergy status; Z88.8 Allergy status to other drugs, medicaments and biological substances; Z88.2 Allergy status to sulfonamides; Z88.1 Allergy status to other antibiotic agents; Z86.718 Personal history of other venous thrombosis and embolism; Z87.19 Personal history of other diseases of the digestive system; Z90.49 Acquired absence of other specified parts of digestive tract; Z90.710 Acquired absence of both cervix and uterus; Z98.51 Tubal ligation status; Z98.890 Other specified postprocedural states; Z53.29 Procedure and treatment not carried out because of patient's decision for other reasons
CPT/HCPCS: 76380; 81001; 99284

== ENCOUNTER 2017-04-05 23:35 | Emergency (ER) | payer MEDICARE, MEDICAID ==
--- NOTE | 2017-04-05 23:59 | EKG REPORT ---
SEVERITY:- NORMAL ECG - SINUS RHYTHM : Confirmed by: Lamin Auguste 05-Apr-2017 23:59:06
--- NOTE | 2017-04-06 01:23 | RADIOLOGY REPORT (SQ) ---
EXAM DESCRIPTION: CHEST SINGLE VIEW COMPLETED DATE/TIME: 04/06/2017 1:06 am REASON FOR STUDY: chest pain COMPARISON: 10/01/2016 EXAM PARAMETERS: NUMBER OF VIEWS: One view. TECHNIQUE: Single frontal radiographic view of the chest acquired. RADIATION DOSE: NA LIMITATIONS: None. FINDINGS: LUNGS AND PLEURA: No opacities, masses or pneumothorax. No pleural effusion. Small calcif ied granuloma of the left upper lobe. MEDIASTINUM AND HILAR STRUCTURES: No masses. Contour normal. HEART AND VASCULAR STRUCTURES: Heart normal in size. Normal vasculature. BONES: No acute findings. HARDWARE: Right upper abdominal clips. OTHER: No other significant finding. IMPRESSION: No acute cardiopulmonary findings. TECHNICAL DOCUMENTATION: JOB ID: [id number]
[2017-04-06 03:19] LABS: ABSOLUTE EOSINOPHILS # (AUTO) 0.4 10^3/uL (0.0-0.6); ABSOLUTE LYMPHOCYTES (AUTO) 2.3 10^3/uL (0.5-4.7); ABSOLUTE MONOCYTES (AUTO) 0.5 10^3/uL (0.1-1.4); ABSOLUTE NEUT (AUTO) 3.6 10^3/uL (1.7-8.2); BASOPHILS % (AUTO) 0.2 % (0-2); EOSINOPHILS % (AUTO) 5.3 % (0-6); HEMOGLOBIN 14.6 g/dL (12.0-15.5); HGB HCT DIFFERENCE -1.2; MEAN CORPUSCULAR HEMOGLOBIN 29.2 pg (27.0-33.4); MEAN CORPUSCULAR HGB CONC 32.5 g/dL (32.0-36.0); MEAN CORPUSCULAR VOLUME 90 fl (80-97); MONOCYTES % (AUTO) 7.4 % (3-13); RED BLOOD COUNT 5.01 10^6/uL (3.72-5.28); RED CELL DISTRIBUTION WIDTH 14.4 % (11.5-14.0); SEGMENTED NEUTROPHILS % (AUTO) 53.1 % (42-78); WHITE BLOOD COUNT 6.7 10^3/uL (4.0-10.5)
[2017-04-06 03:30] LABS: ALANINE AMINOTRANSFERASE 35 U/L (9-52); ALBUMIN 4.1 g/dL (3.5-5.0); ALKALINE PHOSPHATASE 182 U/L (38-126); ANION GAP 12 (5-19); ASPARTATE AMINO TRANSFERASE 32 U/L (14-36); BILIRUBIN,DIRECT 0.4 mg/dL (0.0-0.4); BILIRUBIN,TOTAL 0.4 mg/dL (0.2-1.3); BLOOD UREA NITROGEN 21 mg/dL (7-20); CALCIUM 9.4 mg/dL (8.4-10.2); CARBON DIOXIDE 24 mmol/L (22-30); CHLORIDE 106 mmol/L (98-107); CREATINE KINASE 42 U/L (30-135); CREATININE RESULT 1.06 mg/dL (0.52-1.25); GLUCOSE 95 mg/dL (75-110); POTASSIUM 4.3 mmol/L (3.6-5.0); SODIUM 141.5 mmol/L (137-145); TOTAL PROTEIN 7.9 g/dL (6.3-8.2)
[2017-04-06 03:42] LABS: CREATINE KINASE MB 0.24 ng/mL (<4.55)
[2017-04-06 03:46] LABS: TROPONIN I < 0.012 ng/mL
[2017-04-06] MEDS ORDERED: LIDOCAINE 5% (700 MG) TRANSDERMAL ADH..PATCH TP ONE (04:27)
--- NOTE | 2017-04-06 04:33 | ER Document Report ---
ED General - General Chief Complaint: Chest Pain Stated Complaint: CHEST PAIN Time Seen by Provider: 04/06/17 04:13 TRAVEL OUTSIDE OF THE [place] IN LAST 30 DAYS: No - HPI Patient complains to provider of: Upper chest pain bilateral Notes: Patient coming in with upper chest pain bilaterally. Patient states started around 9:00. Just prior to evaluation patient asking to leave AGAINST MEDICAL ADVICE. Patient states nausea however this is been chronic for chest pain started. Patient denies any recent travel denies any trauma. Patient denies any fevers chills patient states she did vomit earlier today. Patient is resting comfortably upon my evaluation - Related Data Allergies/Adverse Reactions: Iodinated Contrast- Oral and IV Dye Allergy (Verified 01/18/17 01:25) ketorolac [From Toradol] Allergy (Verified 01/18/17 01:25) ondansetron [From Zofran (as hydrochloride)] Allergy (Verified 01/18/17 01:25) Sulfa (Sulfonamide Antibiotics) Allergy (Verified 01/18/17 01:25) sulfamethoxazole [From Septra] Allergy (Verified 01/18/17 01:25) trimethoprim [From Septra] Allergy (Verified 01/18/17 01:25) Past Medical History - Social History Smoking Status: Unknown if Ever Smoked Family History: CAD, CVA, Other - arthritis Patient has suicidal ideation: No Patient has homicidal ideation: No - Past Medical History Cardiac Medical History: Reports: Hx Congestive Heart Failure, Hx DVT, Hx Hypercholesterolemia, Hx Hypertension Denies: Hx Pulmonary Embolism Pulmonary Medical History: Reports: Hx COPD, Hx Pneumonia - x2 Neurological Medical History: Reports: Hx Seizures Endocrine Medical History: Reports: Hx Hypothyroidism. Denies: Hx Diabetes Mellitus Type 1, Hx Diabetes Mellitus Type 2, Hx Hyperthyroidism Renal/ Medical History: Reports: Hx Kidney Stones. Denies: Hx Peritoneal Dialysis Malignancy Medical History: Reports: Hx Breast Cancer, Hx Lymphoma GI Medical History: Reports: Hx Gastroesophageal Reflux Disease. Denies: Hx Cirrhosis, Hx Hepatitis Musculoskeltal Medical History: Reports Hx Arthritis Psychiatric Medical History: Reports: Hx Bipolar Disorder, Hx Depression Infectious Medical History: Denies: Hx Hepatitis Past Surgical History: Reports: Hx Appendectomy, Hx Cardiac Catheterization, Hx Genitourinary Surgery - Bladder tack, Hx Hysterectomy, Hx Kidney (Renal Surgery ) - stone removal, Hx Tubal Ligation - Immunizations Immunizations up to date: Yes Hx Diphtheria, Pertussis, Tetanus Vaccination: Yes Hx Pneumococcal Vaccination: 10/05/09 Review of Systems - Review of Systems Constitutional: No symptoms reported EENT: No symptoms reported Cardiovascular: Chest pain Respiratory: No symptoms reported Gastrointestinal: No symptoms reported Genitourinary: No symptoms reported Female Genitourinary: No symptoms reported Musculoskeletal: No symptoms reported Skin: No symptoms reported Hematologic/Lymphatic: No symptoms reported Neurological/Psychological: No symptoms reported Physical Exam - Vital signs Vitals: Temp Pulse Resp BP Pulse Ox 98 F 94 20 94/62 L 94 04/05/17 23:40 04/05/17 23:40 04/05/17 23:40 04/05/17 23:40 04/05/17 23:40 Interpretation: Normal - General General appearance: Appears well, Alert - HEENT Head: Normocephalic, Atraumatic Eyes: Normal Pupils: PERRL - Respiratory Respiratory status: No respiratory distress Chest status: Nontender Breath sounds: Normal Chest palpation: Normal - Cardiovascular Rhythm: Regular Heart sounds: Normal auscultation Murmur: No - Abdominal Inspection: Normal Distension: No distension Bowel sounds: Normal Tenderness: Nontender Organomegaly: No organomegaly - Back Back: Normal, Nontender - Extremities General upper extremity: Normal inspection, Nontender, Normal color, Normal ROM , Normal temperature General lower extremity: Normal inspection, Nontender, Normal color, Normal ROM , Normal temperature, Normal weight bearing. No: Ansley's sign - Neurological Neuro grossly intact: Yes Cognition: Normal Orientation: AAOx4 [place] Coma Scale Eye Opening: Spontaneous [place] Coma Scale Verbal: Oriented [place] Coma Scale Motor: Obeys Commands Nicky Coma Scale Total: 15 Speech: Normal Motor strength normal: LUE, RUE, LLE, RLE Sensory: Normal - Psychological Associated symptoms: Normal affect, Normal mood - Skin Skin Temperature: Warm Skin Moisture: Dry Skin Color: Normal Course - Re-evaluation Re-evalutation: 04/06/17 06:21 Patient is vital signs look stable patient has chronic hypertension. Patient does not seem to be symptomatic at this time. Recent lab work does not show any acute pathology. The patient has atypical chest pain as the patient's chest pain is not suggestive of pulmonary embolus, cardiac ischemia, aortic dissection, or other serious etiology. Given the extremely low risk of these diagnoses further testing and evaluation for these possibilities does not appear to be indicated at this time. The patient has been instructed to return if the symptoms worsen or change in any way. 04/06/17 06:22 Patient requesting new medication for nausea to her Phenergan is not helping her therefore we will get the patient Reglan. - Vital Signs Vital signs: Temp Pulse Resp BP Pulse Ox 98 F 94 11 L 87/58 L 97 04/05/17 23:40 04/05/17 23:40 04/06/17 04:15 04/06/17 04:01 04/06/17 04:15 - Laboratory Result Diagrams: 04/06/17 03:00 04/06/17 03:00 Laboratory results interpreted by me: 04/06/17 04/06/17 03:00 03:00 RDW 14.4 H BUN 21 H Est GFR (Non-Af Amer) 54 L Alkaline Phosphatase 182 H Discharge - Discharge Clinical Impression: upper chest pain, Nausea Condition: Good Disposition: HOME, SELF-CARE Instructions: Chest Pain of Unclear Cause ([facility]), Chest Wall Pain ([facility]), Nausea or Vomiting, Nonspecific ([facility]) Additional Instructions: Your evaluation today did not reveal any critical pathology for your upper chest pain. Her troponin EKG did not show any acute changes. However recommend follow-up with your primary care physician. Recommend taking Tylenol Motrin for your pain control. Because of your chronic nausea we will try Reglan Prescriptions: Metoclopramide HCl [Reglan] 5 mg PO Q6 #14 tablet
[2017-04-06 04:36] VITALS: BP 87/58
== END 2017-04-06 04:36 | disposition home or self-care (01) ==
LOC: ER 23:35
DX: R07.89 Other chest pain (principal); R11.2 Nausea with vomiting, unspecified; I10 Essential (primary) hypertension; J44.9 Chronic obstructive pulmonary disease, unspecified; Z91.041 Radiographic dye allergy status; Z88.8 Allergy status to other drugs, medicaments and biological substances; Z88.2 Allergy status to sulfonamides; Z88.1 Allergy status to other antibiotic agents; Z86.718 Personal history of other venous thrombosis and embolism; Z87.01 Personal history of pneumonia (recurrent); Z85.3 Personal history of malignant neoplasm of breast; Z85.72 Personal history of non-Hodgkin lymphomas; Z82.49 Family history of ischemic heart disease and other diseases of the circulatory system
CPT/HCPCS: 36415; 71010; 80053; 82550; 82553; 84484; 85025; 93005; 93010; 99285

== ENCOUNTER 2017-04-08 14:47 | Emergency (ER) | payer MEDICARE, MEDICAID ==
[2017-04-08 15:10] VITALS: BP 115/85
[2017-04-08] MEDS ORDERED: TRAMADOL HCL 50 MG TABLET PO ONE (17:03)
--- NOTE | 2017-04-08 17:08 | ER Document Report ---
ED Medical Screen (RME) - General Chief Complaint: Abdominal Pain Stated Complaint: ABDOMINAL PAIN Time Seen by Provider: 04/08/17 16:58 Notes: This 52-year-old female patient comes emergency room complaining of severe left flank pain wrapping around to the front lower abdomen on the left. She states it feels like a kidney stone. She has had several CT scans here this year which show intrarenal stones without ureteral stones or obstruction. She has had too numerous to count emergency room visits for pain related issues. Review of the [place] controlled substance database shows she has been receiving narcotic prescriptions from doctors and at least 3 different cities over the past few months. I have greeted and performed a rapid initial assessment of this patient. A comprehensive ED assessment and evaluation of the patient, analysis of test results and completion of the medical decision making process will be conducted by additional ED providers. TRAVEL OUTSIDE OF THE [place] IN LAST 30 DAYS: No - Related Data Allergies/Adverse Reactions: Iodinated Contrast- Oral and IV Dye Allergy (Verified 01/18/17 01:25) ketorolac [From Toradol] Allergy (Verified 01/18/17 01:25) ondansetron [From Zofran (as hydrochloride)] Allergy (Verified 01/18/17 01:25) Sulfa (Sulfonamide Antibiotics) Allergy (Verified 01/18/17 01:25) sulfamethoxazole [From Septra] Allergy (Verified 01/18/17 01:25) trimethoprim [From Septra] Allergy (Verified 01/18/17 01:25) Past Medical History - Social History Family history: Arthritis, Malignancy, CAD, CVA, DM, Hyperlipidemia, Hypertension, Thyroid Disfunction - Past Medical History Cardiac Medical History: Reports: Hx Congestive Heart Failure, Hx DVT, Hx Hypercholesterolemia, Hx Hypertension Denies: Hx Pulmonary Embolism Pulmonary Medical History: Reports: Hx COPD, Hx Pneumonia - x2 Neurological Medical History: Reports: Hx Seizures Endocrine Medical History: Reports: Hx Hypothyroidism. Denies: Hx Diabetes Mellitus Type 1, Hx Diabetes Mellitus Type 2, Hx Hyperthyroidism Renal/ Medical History: Reports: Hx Kidney Stones. Denies: Hx Peritoneal Dialysis Malignancy Medical History: Reports: Hx Breast Cancer, Hx Lymphoma GI Medical History: Reports: Hx Gastroesophageal Reflux Disease. Denies: Hx Cirrhosis, Hx Hepatitis Musculoskeltal Medical History: Reports Hx Arthritis Psychiatric Medical History: Reports: Hx Bipolar Disorder, Hx Depression Infectious Medical History: Denies: Hx Hepatitis Past Surgical History: Reports: Hx Appendectomy, Hx Cardiac Catheterization, Hx Genitourinary Surgery - Bladder tack, Hx Hysterectomy, Hx Kidney (Renal Surgery ) - stone removal, Hx Tubal Ligation - Immunizations Immunizations up to date: Yes Hx Diphtheria, Pertussis, Tetanus Vaccination: Yes Physical Exam - Vital signs Vitals: Temp Pulse Resp BP Pulse Ox 98.0 F 102 H 18 115/85 97 04/08/17 15:07 04/08/17 15:07 04/08/17 15:07 04/08/17 15:07 04/08/17 15:07 Course - Vital Signs Vital signs: Temp Pulse Resp BP Pulse Ox 98.0 F 102 H 18 115/85 97 04/08/17 15:07 04/08/17 15:07 04/08/17 15:07 04/08/17 15:07 04/08/17 15:07
[2017-04-08 17:57] LABS: APPEARANCE,URINE CLEAR; BILIRUBIN,URINE NEGATIVE (NEGATIVE); GLUCOSE, URINE NEGATIVE (NEGATIVE); KETONES,URINE NEGATIVE (NEGATIVE); NITRITE,URINE NEGATIVE (NEGATIVE); PROTEIN,URINE NEGATIVE (NEGATIVE); URINE SPECIFIC GRAVITY 1.016; UROBILINOGEN,URINE NEGATIVE mg/dL (<2.0)
[2017-04-08 17:58] LABS: BACTERIA,URINE 1+ /HPF; LEUKOCYTE ESTERASE,URINE TRACE (NEGATIVE); RBC,URINE 50-100 /HPF
== END 2017-04-08 17:48 | disposition left against medical advice (07) ==
LOC: ER 14:47
DX: Z53.9 Procedure and treatment not carried out, unspecified reason (principal); R10.9 Unspecified abdominal pain
CPT/HCPCS: 99281; 81001; A9270

== ENCOUNTER 2017-04-24 20:53 | Emergency (ER) | payer MEDICARE, MEDICAID ==
[2017-04-24 21:53] LABS: ABSOLUTE BASOPHILS # (AUTO) 0.1 10^3/uL (0.0-0.2); ABSOLUTE EOSINOPHILS # (AUTO) 0.2 10^3/uL (0.0-0.6); ABSOLUTE LYMPHOCYTES (AUTO) 1.6 10^3/uL (0.5-4.7); ABSOLUTE MONOCYTES (AUTO) 0.5 10^3/uL (0.1-1.4); ABSOLUTE NEUT (AUTO) 2.1 10^3/uL (1.7-8.2); BASOPHILS % (AUTO) 1.3 % (0-2); EOSINOPHILS % (AUTO) 5.6 % (0-6); HEMATOCRIT 37.4 % (36.0-47.0); HGB HCT DIFFERENCE 1.6; LYMPHOCYTES % (AUTO) 36.4 % (13-45); MEAN CORPUSCULAR HEMOGLOBIN 31.2 pg (27.0-33.4); MEAN CORPUSCULAR HGB CONC 34.6 g/dL (32.0-36.0); MEAN CORPUSCULAR VOLUME 90 fl (80-97); MONOCYTES % (AUTO) 10.2 % (3-13); RED BLOOD COUNT 4.16 10^6/uL (3.72-5.28); SEGMENTED NEUTROPHILS % (AUTO) 46.5 % (42-78); WHITE BLOOD COUNT 4.5 10^3/uL (4.0-10.5)
[2017-04-24 22:25] LABS: APPEARANCE,URINE SLIGHTLY-CLOUDY; BILIRUBIN,URINE NEGATIVE (NEGATIVE); GLUCOSE, URINE NEGATIVE (NEGATIVE); KETONES,URINE NEGATIVE (NEGATIVE); LEUKOCYTE ESTERASE,URINE TRACE (NEGATIVE); NITRITE,URINE NEGATIVE (NEGATIVE); PROTEIN,URINE NEGATIVE (NEGATIVE); URINE SPECIFIC GRAVITY 1.014
[2017-04-24 22:54] LABS: ALANINE AMINOTRANSFERASE 33 U/L (9-52); ALBUMIN 3.6 g/dL (3.5-5.0); ALKALINE PHOSPHATASE 82 U/L (38-126); ANION GAP 9 (5-19); ASPARTATE AMINO TRANSFERASE 23 U/L (14-36); BILIRUBIN,DIRECT 0.2 mg/dL (0.0-0.4); BILIRUBIN,TOTAL 0.4 mg/dL (0.2-1.3); BLOOD UREA NITROGEN 7 mg/dL (7-20); CALCIUM 8.8 mg/dL (8.4-10.2); CARBON DIOXIDE 27 mmol/L (22-30); CHLORIDE 98 mmol/L (98-107); CREATININE RESULT 0.62 mg/dL (0.52-1.25); GLUCOSE 108 mg/dL (75-110); POTASSIUM 3.9 mmol/L (3.6-5.0); SODIUM 134.3 mmol/L (137-145); TOTAL PROTEIN 6.5 g/dL (6.3-8.2)
[2017-04-25] MEDS ORDERED: PROMETHAZINE HCL 25 MG TABLET PO ONE (01:08)
--- NOTE | 2017-04-25 01:13 | ER Document Report ---
ED GI/ - General Chief Complaint: Abdominal Pain >50 Stated Complaint: ABDOMINAL PAIN X 6 HOURS Time Seen by Provider: 04/24/17 23:57 Mode of Arrival: Medic Information source: Patient Notes: 52-year-old female presents to ED for abdominal pain nausea vomiting 3 diarrhea 2 and 8:00 this morning. TRAVEL OUTSIDE OF THE [place] IN LAST 30 DAYS: No - HPI Patient complains to provider of: Abdominal pain, Diarrhea, Vomiting Onset: This morning Timing/Duration: Intermittent Quality of pain: Sharp Severity at maximum: Severe Severity in ED: Moderate Pain Level: 3 Location: RUQ, RLQ Vaginal bleeding (Compared to normal period): None Associated symptoms: Diarrhea, Nausea, Vomiting Exacerbated by: Movement Relieved by: Denies Similar symptoms previously: Yes Recently seen / treated by doctor: Yes - Related Data Allergies/Adverse Reactions: Iodinated Contrast- Oral and IV Dye Allergy (Verified 01/18/17 01:25) ketorolac [From Toradol] Allergy (Verified 01/18/17 01:25) ondansetron [From Zofran (as hydrochloride)] Allergy (Verified 01/18/17 01:25) Sulfa (Sulfonamide Antibiotics) Allergy (Verified 01/18/17 01:25) sulfamethoxazole [From Septra] Allergy (Verified 01/18/17 01:25) trimethoprim [From Septra] Allergy (Verified 01/18/17 01:25) Past Medical History - General Information source: Patient - Social History Smoking Status: Current Every Day Smoker Cigarette use (# per day): Yes - 1/2 ppd Chew tobacco use (# tins/day): No Smoking Education Provided: Yes - less than 2 min Frequency of alcohol use: None Drug Abuse: None Occupation: none Lives with: Family - cousin Family History: Arthritis, CAD, CVA - Past Medical History Cardiac Medical History: Reports: Hx Congestive Heart Failure, Hx DVT, Hx Hypercholesterolemia, Hx Hypertension Pulmonary Medical History: Reports: Hx COPD, Hx Pneumonia - x2 Neurological Medical History: Reports: Hx Cerebrovascular Accident, Hx Seizures , Other - Pulse Endocrine Medical History: Reports: Hx Hypothyroidism Renal/ Medical History: Reports: Hx Kidney Stones Malignancy Medical History: Reports: Hx Breast Cancer, Hx Lymphoma GI Medical History: Reports: Hx Gastroesophageal Reflux Disease Musculoskeltal Medical History: Reports Hx Arthritis Skin Medical History: Reports None Psychiatric Medical History: Reports: Hx Bipolar Disorder, Hx Depression Traumatic Medical History: Reports: None Infectious Medical History: Reports: None Past Surgical History: Reports: Hx Appendectomy, Hx Cardiac Catheterization, Hx Genitourinary Surgery - Bladder tack, Hx Hysterectomy, Hx Kidney (Renal Surgery ) - stone removal, Hx Tubal Ligation. Denies: Hx Mastectomy - lumpectomy - Immunizations Immunizations up to date: Yes Hx Diphtheria, Pertussis, Tetanus Vaccination: Yes Hx Pneumococcal Vaccination: 10/05/09 Review of Systems - Review of Systems Constitutional: Recent illness EENT: No symptoms reported Cardiovascular: No symptoms reported Respiratory: No symptoms reported Gastrointestinal: Abdominal pain, Diarrhea, Nausea, Vomiting Genitourinary: No symptoms reported Female Genitourinary: No symptoms reported Musculoskeletal: No symptoms reported Skin: No symptoms reported Hematologic/Lymphatic: No symptoms reported Neurological/Psychological: No symptoms reported -: Yes All other systems reviewed and negative Physical Exam - Vital signs Vitals: Temp Pulse Resp BP Pulse Ox 98.2 F 75 20 103/76 93 04/24/17 21:15 04/24/17 21:15 04/24/17 21:15 04/24/17 21:15 04/24/17 21:15 Interpretation: Normal - General General appearance: Appears well, Alert - HEENT Head: Normocephalic, Atraumatic Eyes: Normal Pupils: PERRL - Respiratory Respiratory status: No respiratory distress Chest status: Nontender Breath sounds: Normal Chest palpation: Normal - Cardiovascular Rhythm: Regular Heart sounds: Normal auscultation Murmur: No - Abdominal Inspection: Normal Distension: No distension Bowel sounds: Normal Tenderness: Tender Organomegaly: No organomegaly - Back Back: Normal, Nontender - Extremities General upper extremity: Normal inspection, Nontender, Normal color, Normal ROM , Normal temperature General lower extremity: Normal inspection, Nontender, Normal color, Normal ROM , Normal temperature, Normal weight bearing. No: Ansley's sign - Neurological Neuro grossly intact: Yes Cognition: Normal Orientation: AAOx4 Nicky Coma Scale Eye Opening: Spontaneous Lolo Coma Scale Verbal: Oriented Lolo Coma Scale Motor: Obeys Commands Lolo Coma Scale Total: 15 Speech: Normal Motor strength normal: LUE, RUE, LLE, RLE Sensory: Normal - Psychological Associated symptoms: Normal affect, Normal mood - Skin Skin Temperature: Warm Skin Moisture: Dry Skin Color: Normal Course - Re-evaluation Re-evalutation: 04/25/17 06:58 Tolerated p.o. fluids and crackers after her Compazine supp. will discharge home. - Vital Signs Vital signs: Temp Pulse Resp BP Pulse Ox 98.2 F 75 20 104/76 96 04/24/17 21:15 04/24/17 21:15 04/24/17 21:15 04/25/17 01:00 04/25/17 01:01 - Laboratory Result Diagrams: 04/24/17 21:35 04/24/17 22:26 Laboratory results interpreted by me: 04/24/17 04/24/17 04/24/17 21:35 22:15 22:26 RDW 15.0 H Sodium 134.3 L Urine Blood SMALL H Urine Urobilinogen 2.0 H Ur Leukocyte Esterase TRACE H Discharge - Discharge Clinical Impression: Abdominal pain Qualifiers: Abdominal location: generalized Qualified Code(s): R10.84 - Generalized abdominal pain Nausea and vomiting Qualifiers: Vomiting type: unspecified Vomiting Intractability: non-intractable Qualified Code(s): R11.2 - Nausea with vomiting, unspecified Diarrhea Qualifiers: Diarrhea type: unspecified type Qualified Code(s): R19.7 - Diarrhea, unspecified Condition: Stable Disposition: HOME, SELF-CARE Additional Instructions: ABDOMINAL PAIN: There are many causes of abdominal pain. Pain can mean a serious problem requiring surgery (such as appendicitis). It can also be an innocent problem that goes away on its own (such as a viral infection). Often, time must pass to determine the cause of pain. The physician does not feel that hospitalization is necessary, at present. Things may change within the next 24 hours. Call the doctor or come back for re- examination if any problems occur, such as: (1) Pain that becomes more severe, steady, or becomes concentrated in one specific area. Also, pain that is more severe with movement or coughing. (2) Vomiting that persists or becomes more frequent. (3) Blood in the vomitus, urine, or bowel movements. Blood in the stool may have a tarry or black appearance. (4) Shaking chills or fever greater than 100 degrees F. (5) The abdomen becomes more distended or swollen. (6) Bowel movements cease. (7) Failure to improve as expected. NORMAL EXAM AND WORKUP: At this time, your examination and workup show no significant abnormality. No significant abnormal physical findings are noted. All laboratory, EKG, and imaging (x-ray, CT scans, ultrasound) studies that were ordered show no significant abnormality. Although your examination and all studies that were ordered showed no significant abnormal finding, there are no examinations and no studies that are 100% accurate. There is always the possibility that some abnormality could exist and not be detected with physical examination or within the limits and capabilities of laboratory and other studies. You should return or follow up as you were instructed on your visit today for further evaluation if your symptoms do not resolve. VOMITING: Vomiting (or nausea without vomiting) can be caused by many other different problems. It can mean that something's wrong with the stomach, such as ulcers or inflammation or the intestinal tract, such as appendicitis. But it can also be a symptom of a problem that has nothing to do with the stomach or intestines. Vomiting is common with severe headaches, earaches, tonsillitis, and kidney infections, etc. We see it with pneumonia or heart attacks. Drugs can cause nausea and vomiting. Many abdominal problems cause vomiting; for example, gallstones, kidney stones, pancreatitis, and intestinal obstruction ( blocked bowels). In most cases, curing the vomiting depends on fixing the problem that caused it. For temporary relief, we may use an anti-nausea medicine. For home use, we can prescribe suppositories, chewable pills, pills that dissolve in the mouth, or liquid anti-nausea drugs. If the vomiting seems to be caused by a problem in the stomach, acid-suppressing drugs may be prescribed as well. It's important to avoid dehydration. Sip small amounts of clear liquids ( soft drinks, tea, broth, etc) . Try to take fluids frequently even if you are vomiting to prevent dehydration. Take increasing amounts of fluid and when liquids are being consumed successfully, advance to small amounts of bland food (toast, soups, mashed potatoes, etc.) until you are able to resume a regular diet. Avoid aspirin, tobacco, and alcohol. If the vomiting worsens, if the problem that's making you vomit worsens, or if there's evidence of bleeding in the stomach (such as black, tarry stool, or bloody or black vomit), you should return immediately. Also, return if abdominal pain worsens or becomes localized to one area or you develop high fever. Call your doctor if you aren't improved in 24 hours. DIARRHEA, NON-SPECIFIC: Diarrhea means frequent, watery stools. There are many causes. Any problem that keeps the intestinal tract from absorbing water from the stool can lead to diarrhea. A sudden new diarrhea problem is usually caused by a virus, food sensitivity, toxic bacteria, or drugs. In this case, we expect the problem to go away soon. Testing is done only if you seem seriously ill from the diarrhea. If you have chronic diarrhea, or diarrhea that keeps coming back, we need to find out why. Chronic diarrhea can be due to inflammation of the bowels such as Crohn's disease or ulcerative colitis, food sensitivity such as intolerance to lactose or wheat protein, irritable bowel syndrome, and other problems. If your diarrhea is a significant problem but it's not clear why you have it, we' ll refer you to a specialist for further testing. During an episode of diarrhea, drink small amounts (two to six ounces) of clear liquids (soft drinks, sport drinks, herb teas, broth, etc). Take fluids frequently to prevent dehydration. It's usually not a problem to take mild anti- diarrhea medication such as Kaopectate or Pepto-Bismol. As the diarrhea eases, advance to small amounts of bland food (mashed potato, toast) for 24 hours. Call the physician if blood appears in your vomit or stool, if vomiting lasts longer than 24 hours, if the abdominal pain worsens or becomes localized to one area, if you develop high fever, or if you become lightheaded and weak. VIRAL SYNDROME: The physician has diagnosed a viral infection. Viruses not only cause "colds," but can cause many different symptoms including generalized aching, fever, headache, cough, diarrhea, nausea, vomiting, and fatigue. The treatment, for the most part, is simply relief of symptoms. This means that antibiotics are usually not given. Rest, fluids, pain medications and, occasionally, medication for the specific symptoms that are most bothersome will be prescribed. Use good handwashing to avoid passing the virus to others. Shared toys should be cleaned with disinfectant. Clean the toilets, sinks, and counter surfaces in bathrooms. Launder clothing in hot water. Contact the physician if you develop any new or unusual symptoms such as severe headache, stiff neck, high fever, chest pain, productive cough, or shortness of breath. You should be rechecked if you don't see marked improvement within seven to 10 days. ANTINAUSEA MEDICATION: You have been given a medication to suppress nausea and vomiting. This type of medication can be given as a shot, pill, or suppository. It will usually last for many hours. Pills and shots usually last six to eight hours. For the typical illness, only one or two doses of the medication may be necessary. Mild lightheadedness may occur. This type of medicine can cause drowsiness. Do not drive or operate dangerous machinery while under its influence. Do not mix with alcohol. See your doctor at once if you have muscle spasms or tightness, or uncontrollable motions (particularly of the neck, mouth, or jaw). Persistent vomiting or severe lightheadedness should also be evaluated by the physician. FOLLOW-UP CARE: If you have been referred to a physician for follow-up care, call the physician s office for an appointment as you were instructed or within the next two days. If you experience worsening or a significant change in your symptoms, notify the physician immediately or return to the Emergency Department at any time for re-evaluation. Prescriptions: Promethazine HCl [Phenergan 25 mg Supp.rect] 1 supp MA Q6H #12 supp.rect Forms: Smoking Cessation Education Referrals: ELIEL SMYTH FNP [Primary Care Provider] - Follow up in 3-5 days
[2017-04-25] MEDS ORDERED: PROMETHAZINE HCL 25 MG SUPP.RECT PR ONE (02:35)
[2017-04-25 03:37] VITALS: BP 104/76
== END 2017-04-25 07:16 | disposition home or self-care (01) ==
LOC: ER 20:53
DX: R10.84 Generalized abdominal pain (principal); R11.2 Nausea with vomiting, unspecified; R19.7 Diarrhea, unspecified; F17.210 Nicotine dependence, cigarettes, uncomplicated; I50.9 Heart failure, unspecified; E78.00 Pure hypercholesterolemia, unspecified; I11.0 Hypertensive heart disease with heart failure; J44.9 Chronic obstructive pulmonary disease, unspecified; E03.9 Hypothyroidism, unspecified; Z86.73 Personal history of transient ischemic attack (TIA), and cerebral infarction without residual deficits; Z86.718 Personal history of other venous thrombosis and embolism; Z87.442 Personal history of urinary calculi; Z85.3 Personal history of malignant neoplasm of breast; Z85.72 Personal history of non-Hodgkin lymphomas; Z90.710 Acquired absence of both cervix and uterus
CPT/HCPCS: 99284; 36415; 87086; 82140; 83605; 83690; 85025; 80053; 81001; A9270

== ENCOUNTER 2017-05-02 17:54 | Emergency (ER) | payer MEDICARE, MEDICAID ==
--- NOTE | 2017-05-02 18:06 | ER Document Report ---
ED GI/ - General Mode of Arrival: Medic Information source: Patient TRAVEL OUTSIDE OF THE [place] IN LAST 30 DAYS: No - HPI Patient complains to provider of: Abdominal pain Onset: Other - Refer to HPI notes - General Stated Complaint: ABDOMINAL PAIN Time Seen by Provider: 05/02/17 18:04 Notes: Patient is a 52 year old female presenting to the emergency department for left flank pain. Patient claims she was treated at [facility] ED on 05/01/[address] showing a 7mm kidney stone in the mid left ureter. Patient was sent home with flow max, phenergan, and oxycodone. Patient also has some hematuria. Patient states she was told to follow up with her PCP for possible surgery. Patient has had continued left flank pain and hematuria. Patient is supposed to see Dr. Baker in [place] on Thursday. (JAY YIP) - Related Data Allergies/Adverse Reactions: Iodinated Contrast- Oral and IV Dye Allergy (Verified 05/02/17 18:10) ketorolac [From Toradol] Allergy (Verified 05/02/17 18:10) ondansetron [From Zofran (as hydrochloride)] Allergy (Verified 05/02/17 18:10) Sulfa (Sulfonamide Antibiotics) Allergy (Verified 05/02/17 18:10) sulfamethoxazole [From Septra] Allergy (Verified 05/02/17 18:10) trimethoprim [From Junra] Allergy (Verified 05/02/17 18:10) Home Medications: Current Home Medications Atorvastatin Calcium [Lipitor 40 mg Tablet] 40 mg PO HSP PRN 05/02/17 [History] Ciprofloxacin HCl [Cipro 500 mg Tablet] 500 mg PO BID 05/02/17 [History] Docusate Sodium 100 mg PO BID 05/02/17 [History] Ibuprofen 800 mg PO DAILY PRN 05/02/17 [History] Levothyroxine Sodium [Synthroid 0.05 mg Tablet] 75 mg PO DAILY 05/02/17 [History ] Omeprazole 40 mg PO DAILY 05/02/17 [History] Paroxetine HCl [Paxil] 40 mg PO DAILY 05/02/17 [History] Tamsulosin HCl [Flomax 0.4 mg Cap.sr] 0.4 mg PO DAILY 05/02/17 [History] Zolpidem Tartrate 10 mg PO HSP PRN 05/02/17 [History] Past Medical History - General Information source: Patient - Social History Smoking Status: Unknown if Ever Smoked Chew tobacco use (# tins/day): No Smoking Education Provided: No Frequency of alcohol use: None Drug Abuse: None Family History: Arthritis, CAD, CVA Patient has suicidal ideation: No Patient has homicidal ideation: No - Medical History Medical History: Other - speech impediment - Past Medical History Cardiac Medical History: Reports: Hx Congestive Heart Failure, Hx DVT, Hx Hypercholesterolemia, Hx Hypertension Pulmonary Medical History: Reports: Hx COPD, Hx Pneumonia - x2 Neurological Medical History: Reports: Hx Cerebrovascular Accident, Hx Seizures Endocrine Medical History: Reports: Hx Hypothyroidism Renal/ Medical History: Reports: Hx Kidney Stones Malignancy Medical History: Reports: Hx Breast Cancer, Hx Lymphoma GI Medical History: Reports: Hx Gastroesophageal Reflux Disease Musculoskeltal Medical History: Reports Hx Arthritis Psychiatric Medical History: Reports: Hx Bipolar Disorder, Hx Depression Past Surgical History: Reports: Hx Appendectomy, Hx Cardiac Catheterization, Hx Genitourinary Surgery - Bladder tack, Hx Hysterectomy, Hx Kidney (Renal Surgery ) - stone removal, Hx Tubal Ligation - Immunizations Immunizations up to date: Yes Hx Diphtheria, Pertussis, Tetanus Vaccination: Yes Hx Pneumococcal Vaccination: 10/05/09 Review of Systems - Review of Systems Constitutional: No symptoms reported EENT: No symptoms reported Cardiovascular: No symptoms reported Respiratory: No symptoms reported Gastrointestinal: No symptoms reported Genitourinary: See HPI, Flank pain - left, Hematuria Female Genitourinary: No symptoms reported Musculoskeletal: No symptoms reported Skin: No symptoms reported Hematologic/Lymphatic: No symptoms reported Neurological/Psychological: No symptoms reported -: Yes All other systems reviewed and negative Physical Exam - Vital signs Vitals: Resp 18 05/02/17 18:14 - Notes Notes: GENERAL: Alert, interacts well. Mild distress. HEAD: Normocephalic, atraumatic. EYES: Appear normal. Pupils equal, round, and reactive to light. ENT: Moist mucus membranes, tongue midline. NECK: Full range of motion. Supple. Trachea midline. LUNGS: Clear to auscultation bilaterally, no wheezes, rales, or rhonchi. No respiratory distress. HEART: Regular rate and rhythm. No murmurs, gallops, or rubs. ABDOMEN: Soft, left lower quadrant to mid abdominal tenderness with palpation. Non-distended. Normal bowel sounds. BACK: Left CVA flank tenderness to percussion. EXTREMITIES: Moves all 4 extremities spontaneously. Normal strength. No edema. NEUROLOGICAL: Alert and oriented x3. Speech impediment. No focal neurological deficits. GSC 15. PSYCH: Normal affect, normal mood. SKIN: Warm, dry, normal turgor. No rashes or lesions noted. (JAY YIP) Discharge - Discharge Clinical Impression: Left ureteral stone, Renal colic on left side, Pyuria Condition: Stable Disposition: HOME, SELF-CARE Additional Instructions: Kidney Stone: You are passing a kidney stone. These stones are usually due to increased calcium or uric acid concentrations in your urine. Stones within the kidney itself are not painful. The pain occurs as the stone leaves the kidney to pass down the long tube, called the ureter, leading to the bladder. If the stone is small, it will usually pass by itself. Most patients can pass the stone at home. You will usually receive medications for pain, nausea or vomiting, and sometimes a medication to assist in passing the kidney stone. However, if the pain is very severe or if vomiting prevents you from taking oral pain medications, you may need to return for further treatment. Drink three or four quarts of fluids per day. You will be given pain medication (if needed) and urine strainers. Strain all your urine to see if the stone passes. If your doctor has asked you to bring the stone in for analysis, return with the stone once it has passed. Return if pain or vomiting become severe, if you develop a high fever, if you are unable to pass your urine, or if other unusual symptoms occur. Your urine suggest you may be starting to get a urinary tract infection. You were given a dose of antibiotics here in the emergency room and a prescription to start tomorrow. Continue taking your pain medicine and nausea medicine that was prescribed for you yesterday. Follow-up with your urologist on Thursday as planned. RETURN TO THE EMERGENCY ROOM IF ANY NEW OR WORSENING SYMPTOMS. Prescriptions: Cephalexin Monohydrate [Keflex 500 mg Capsule] 500 mg PO QID #20 capsule Referrals: ELIEL SMYTH FNP [Primary Care Provider] - Follow up as needed Aminataibrashaad Attestation: 05/02/17 20:56 I personally performed the services described in the documentation, reviewed and edited the documentation which was dictated to the scribe in my presence, and it accurately records my words and actions. (CARRIE HARVEY) Scribe Documentation - Scribe Written by Noy:: Noy Londono 05/02/17 18:08 acting as scribe for :: Boy
[2017-05-02] MEDS ORDERED: MORPHINE SULFATE 10 MG/ML INJ IM ONE (19:04)
[2017-05-02] MEDS ORDERED: PROMETHAZINE HCL INJ 50 MG/1 ML VIAL IM PRN (19:04)
[2017-05-02] MEDS ORDERED: PROMETHAZINE HCL INJ 25 MG/1 ML VIAL ONE (19:38)
[2017-05-02 20:39] LABS: APPEARANCE,URINE TURBID; BILIRUBIN,URINE NEGATIVE (NEGATIVE); CALCIUM OXALATE CRYSTALS,URINE TOO NUMEROUS TO CNT /HPF; GLUCOSE, URINE NEGATIVE (NEGATIVE); KETONES,URINE NEGATIVE (NEGATIVE); LEUKOCYTE ESTERASE,URINE SMALL (NEGATIVE); NITRITE,URINE NEGATIVE (NEGATIVE); PROTEIN,URINE NEGATIVE (NEGATIVE); URINE SPECIFIC GRAVITY 1.028; UROBILINOGEN,URINE NEGATIVE mg/dL (<2.0)
[2017-05-02] MEDS ORDERED: CEPHALEXIN 500 MG CAPSULE PO ONE (20:52)
[2017-05-02 21:08] VITALS: BP 111/77
== END 2017-05-02 21:08 | disposition home or self-care (01) ==
LOC: ER 17:54
DX: N39.0 Urinary tract infection, site not specified (principal); N20.1 Calculus of ureter; R10.9 Unspecified abdominal pain; R31.9 Hematuria, unspecified; Z79.899 Other long term (current) drug therapy
CPT/HCPCS: 99284; 96372; 87086; 81001; A9270; J2270; J2550

== ENCOUNTER 2017-05-20 01:33 | Inpatient (IN) | payer MEDICARE, MEDICAID ==
--- NOTE | 2017-05-20 01:52 | ER Document Report ---
ED Fall - General Mode of Arrival: Medic Information source: Patient TRAVEL OUTSIDE OF THE [place] IN LAST 30 DAYS: No - HPI Where: Home <JAY YIP - Last Filed: 05/20/17 02:46> <BEN STRICKLAND - Last Filed: 05/25/17 11:38> - General Chief Complaint: Fall Stated Complaint: FALL Notes: Patient is a 52 year old female presenting to the emergency department after a fall. Patient complains of back pain, severe nausea, and multiple falls. Patient states she started having diarrhea this afternoon around 15:00. Patient also had nausea and vomiting after. Patient states she fell x4 starting around 16:00 this afternoon. Patient states she crawled to and from the bathroom from her bed. Patient normally uses a walker. Patient lives with her son who was not home. Patient's son came home around 22:30 and called 911. Patient had a kidney stone removed with stent last week. Patient also has a history of cerebral palsy , stroke, and leukemia (in remission for 5 years). Patient's PCP is [facility]. Patient also sees a kraft digester operator at [facility] every month. Patient denies any history of VT. Patient complains mostly of nausea and back pain. (JAY YIP) - Related data Allergies/Adverse Reactions: Iodinated Contrast- Oral and IV Dye Allergy (Verified 05/02/17 18:10) ketorolac [From Toradol] Allergy (Verified 05/02/17 18:10) ondansetron [From Zofran (as hydrochloride)] Allergy (Verified 05/02/17 18:10) Sulfa (Sulfonamide Antibiotics) Allergy (Verified 05/02/17 18:10) sulfamethoxazole [From Septra] Allergy (Verified 05/02/17 18:10) trimethoprim [From Septra] Allergy (Verified 05/02/17 18:10) Past Medical History - General Information source: Patient - Social History Smoking Status: Never Smoker Cigarette use (# per day): No Chew tobacco use (# tins/day): No Smoking Education Provided: No Frequency of alcohol use: None Drug Abuse: None Lives with: Family - son Family History: Arthritis, CAD, CVA Patient has suicidal ideation: No Patient has homicidal ideation: No - Past Medical History Cardiac Medical History: Reports: Hx Congestive Heart Failure, Hx DVT, Hx Hypercholesterolemia, Hx Hypertension Pulmonary Medical History: Reports: Hx COPD, Hx Pneumonia - x2 Neurological Medical History: Reports: Hx Cerebrovascular Accident, Hx Seizures , Other - cerebral palsy Endocrine Medical History: Reports: Hx Hypothyroidism Renal/ Medical History: Reports: Hx Kidney Stones Malignancy Medical History: Reports: Hx Breast Cancer, Hx Lymphoma GI Medical History: Reports: Hx Gastroesophageal Reflux Disease Musculoskeltal Medical History: Reports Hx Arthritis Psychiatric Medical History: Reports: Hx Bipolar Disorder, Hx Depression Past Surgical History: Reports: Hx Appendectomy, Hx Cardiac Catheterization, Hx Genitourinary Surgery - Bladder tack, Hx Hysterectomy, Hx Kidney (Renal Surgery ) - stone removal and stent placed, Hx Tubal Ligation - Immunizations Immunizations up to date: Yes Hx Diphtheria, Pertussis, Tetanus Vaccination: Yes Hx Pneumococcal Vaccination: 10/05/09 <JAY YIP - Last Filed: 05/20/17 02:46> Review of Systems - Review of Systems Constitutional: No symptoms reported EENT: No symptoms reported Cardiovascular: No symptoms reported Respiratory: No symptoms reported Gastrointestinal: See HPI, Diarrhea, Nausea, Vomiting Genitourinary: No symptoms reported Female Genitourinary: No symptoms reported Musculoskeletal: See HPI, Back pain Skin: No symptoms reported Hematologic/Lymphatic: No symptoms reported Neurological/Psychological: No symptoms reported -: Yes All other systems reviewed and negative <JAY YIP - Last Filed: 05/20/17 02:46> Physical Exam <JAY YIP - Last Filed: 05/20/17 02:46> <BEN STRICKLAND - Last Filed: 05/25/17 11:38> - Vital signs Vitals: Pulse Ox 100 05/20/17 01:37 - Notes Notes: GENERAL: Alert, interacts well, difficult to understand d/t garbled speech. Mild distress. HEAD: Normocephalic, atraumatic. EYES: Appear normal. Pupils equal, round, and reactive to light. ENT: Moist mucus membranes, tongue midline. Edentulous. NECK: C-collar in place. Supple. Trachea midline. LUNGS: Clear to auscultation bilaterally, no wheezes, rales, or rhonchi. No respiratory distress. HEART: Regular rate and rhythm. No murmurs, gallops, or rubs. ABDOMEN: Soft, non-tender. Non-distended. Normal bowel sounds. Writing on left abdomen from recent surgery. BACK: Permanent black X tattoo which is consistent with history of leukemia. Tenderness with palpation over the low cervical, upper thoracic, and lumbar musculature. No flank tenderness. No midline tenderness. No sign of trauma. EXTREMITIES: Moves all 4 extremities spontaneously. Normal strength. No edema. Able to move both legs with difficulty secondary to her back pain. No sign of trauma to the extremities. NEUROLOGICAL: Alert and oriented x3. Garbled speech which is difficult to understand at first, this is not stroke-like and is consistent with patient's history of cerebral palsy, stroke, and edentulous. GSC 15. PSYCH: Normal affect, normal mood. SKIN: Warm, dry, normal turgor. No rashes or lesions noted. (JAY YIP) Course - Laboratory Result Diagrams: 05/20/17 01:00 05/20/17 01:00 <JAY YIP - Last Filed: 05/20/17 02:46> - Laboratory Result Diagrams: 05/23/17 04:15 05/23/17 04:15 <BEN STRICKLAND - Last Filed: 05/25/17 11:38> - Vital Signs Vital signs: Temp Pulse Resp BP Pulse Ox 99.0 F 72 18 108/54 L 98 05/23/17 11:31 05/23/17 11:31 05/23/17 11:31 05/23/17 11:31 05/23/17 11:31 - Laboratory Laboratory results interpreted by me: 05/20/17 05/20/17 05/20/17 01:00 02:21 02:35 RBC 3.69 L Hgb 11.5 L Hct 33.4 L RDW 14.6 H Eosinophils % (Manual) 9 H APTT 57.2 H Chloride BUN Alkaline Phosphatase Urine Blood SMALL H Ur Leukocyte Esterase SMALL H 05/20/17 05/21/17 05/22/17 02:35 09:55 04:22 RBC Hgb Hct RDW 14.6 H Eosinophils % (Manual) APTT Chloride 111 H 111 H BUN 6 L Alkaline Phosphatase 147 H Urine Blood Ur Leukocyte Esterase Discharge <JAY YIP - Last Filed: 05/20/17 02:46> <BEN STRICKLAND - Last Filed: 05/25/17 11:38> - Discharge Condition: Stable Disposition: HOME, SELF-CARE Scribe Documentation - Scribe Written by Scribe:: Noy Londono, 05/20/2017 2:50 acting as scribe for :: Ian <JAY YIP - Last Filed: 05/20/17 02:46>
--- NOTE | 2017-05-20 02:02 | RADIOLOGY REPORT (SQ) ---
EXAM DESCRIPTION: CT HEAD WITHOUT COMPLETED DATE/TIME: 05/20/2017 1:46 am REASON FOR STUDY: stroke protocol COMPARISON: 01/18/2017. TECHNIQUE: Axial images acquired through the brain without intravenous contrast. Images reviewed wi th bone, brain and subdural windows. Images stored on PACS. All CT scanners at this facility use dose modulation, iterative reconstruction, and/or weight based d osing when appropriate to reduce radiation dose to as low as reasonably achievable (ALARA). [facility]: Dose Right [facility]: CareDose [facility]: Dose Right [facility]: Teradose 4D [facility]: Smart [employer] RADIATION DOSE: Up-to-date CT equipment and radiation dose reduction techniques were employed. CTDIv ol: 64.6 mGy. DLP: 1163 mGy-cm. mGy. LIMITATIONS: None. FINDINGS: VENTRICLES: Normal size and contour. CEREBRUM: No masses. No hemorrhage. No midline shift. Normal bolton/white matter differentiation. N o evidence for acute infarction. Mild cerebral volume loss. CEREBELLUM: No masses. No hemorrhage. No alteration of density. No evidence for acute infarction. EXTRAAXIAL SPACES: No fluid collections. No masses. ORBITS AND GLOBE: No intra- or extraconal masses. Normal contour of globe without masses. CALVARIUM: No fracture. PARANASAL SINUSES: No fluid or mucosal thickening. SOFT TISSUES: No mass or hematoma. OTHER: No other significant finding. IMPRESSION: NORMAL BRAIN CT WITHOUT CONTRAST. COMMENT: This report was called to Clinician Trinidad Peter at01:52 on 05/20/2017. TECHNICAL DOCUMENTATION: JOB ID: [id number] Quality ID # [id number]: Final reports with documentation of one or more dose reduction techniques (e.g., Au tomated exposure control, adjustment of the mA and/or kV according to patient size, use of iterative reconstruction technique) 2010 [email or web address]- All Rights Reserved
--- NOTE | 2017-05-20 02:04 | RADIOLOGY REPORT (SQ) ---
EXAM DESCRIPTION: CHEST SINGLE VIEW COMPLETED DATE/TIME: 05/20/2017 1:47 am REASON FOR STUDY: stroke protocol COMPARISON: None. EXAM PARAMETERS: NUMBER OF VIEWS: One view. TECHNIQUE: Single frontal radiographic view of the chest acquired. RADIATION DOSE: NA LIMITATIONS: None. FINDINGS: LUNGS AND PLEURA: Prominent interstitium. Small calcified granuloma of the left upper lob e. Stable. MEDIASTINUM AND HILAR STRUCTURES: No masses. Contour normal. HEART AND VASCULAR STRUCTURES: Heart normal in size. Normal vasculature. BONES: No acute findings. HARDWARE: Right upper abdominal clips. OTHER: No other significant finding. IMPRESSION: No acute cardiopulmonary findings. TECHNICAL DOCUMENTATION: JOB ID: [id number]
[2017-05-20 02:08] LABS: HEMATOCRIT 33.4 % (36.0-47.0); HEMOGLOBIN 11.5 g/dL (12.0-15.5); HGB HCT DIFFERENCE 1.1; MEAN CORPUSCULAR HEMOGLOBIN 31.3 pg (27.0-33.4); MEAN CORPUSCULAR HGB CONC 34.6 g/dL (32.0-36.0); MEAN CORPUSCULAR VOLUME 91 fl (80-97); RED BLOOD COUNT 3.69 10^6/uL (3.72-5.28); RED CELL DISTRIBUTION WIDTH 14.6 % (11.5-14.0); WHITE BLOOD COUNT 6.5 10^3/uL (4.0-10.5)
[2017-05-20 02:31] LABS: BASOPHILS % (MANUAL) 1 % (0-2); EOSINOPHILS % (MANUAL) 9 % (0-6); LYMPHOCYTES % (MANUAL) 43 % (13-45); NUCLEATED RED BLOOD CELLS 2 /100 WBC (0); TOTAL CELLS COUNTED 100
[2017-05-20 02:32] LABS: ANISOCYTOSIS SLIGHT; TOXIC VACUOLATION PRESENT
[2017-05-20 02:37] LABS: AMORPHOUS SEDIMENT,URINE TRACE /HPF; APPEARANCE,URINE CLEAR; BILIRUBIN,URINE NEGATIVE (NEGATIVE); CALCIUM OXALATE CRYSTALS,URINE MODERATE /HPF; GLUCOSE, URINE NEGATIVE (NEGATIVE); KETONES,URINE NEGATIVE (NEGATIVE); LEUKOCYTE ESTERASE,URINE SMALL (NEGATIVE); NITRITE,URINE NEGATIVE (NEGATIVE); PROTEIN,URINE NEGATIVE (NEGATIVE); UROBILINOGEN,URINE NEGATIVE mg/dL (<2.0)
[2017-05-20 02:50] LABS: PARTIAL THROMBOPLASTIN TIME 57.2 SEC (23.5-35.8); PROTHROMBIN TIME 12.9 SEC (11.4-15.4)
[2017-05-20 03:02] LABS: ALANINE AMINOTRANSFERASE 22 U/L (9-52); ALBUMIN 3.5 g/dL (3.5-5.0); ALKALINE PHOSPHATASE 147 U/L (38-126); ANION GAP 7 (5-19); ASPARTATE AMINO TRANSFERASE 27 U/L (14-36); BILIRUBIN,DIRECT 0.4 mg/dL (0.0-0.4); BILIRUBIN,TOTAL 0.4 mg/dL (0.2-1.3); BLOOD UREA NITROGEN 10 mg/dL (7-20); CALCIUM 9.1 mg/dL (8.4-10.2); CARBON DIOXIDE 24 mmol/L (22-30); CHLORIDE 111 mmol/L (98-107); CREATINE KINASE 52 U/L (30-135); CREATININE RESULT 0.73 mg/dL (0.52-1.25); GLUCOSE 109 mg/dL (75-110); POTASSIUM 3.6 mmol/L (3.6-5.0); SODIUM 142.2 mmol/L (137-145); TOTAL PROTEIN 6.9 g/dL (6.3-8.2)
[2017-05-20 03:19] LABS: CREATINE KINASE MB 0.52 ng/mL (<4.55)
[2017-05-20 03:20] LABS: TROPONIN I < 0.012 ng/mL
--- NOTE | 2017-05-20 03:29 | RADIOLOGY REPORT (SQ) ---
EXAM DESCRIPTION: CT CERVICAL SPINE WITHOUT COMPLETED DATE/TIME: 05/20/2017 3:04 am REASON FOR STUDY: fall pain COMPARISON: None. TECHNIQUE: Axial images acquired through the cervical spine without intravenous contrast. Images re viewed with lung, soft tissue and bone windows. Reconstructed coronal and sagittal MPR images review ed. Images stored on PACS. All CT scanners at this facility use dose modulation, iterative reconstruction, and/or weight based d osing when appropriate to reduce radiation dose to as low as reasonably achievable (ALARA). [facility]: Dose Right [facility]: CareDose [facility]: Dose Right [facility]: Teradose 4D [facility]: Smart [employer] RADIATION DOSE: Up-to-date CT equipment and radiation dose reduction techniques were employed. CTDIv ol: 17.8 mGy. DLP: 348 mGy-cm. mGy. LIMITATIONS: None. FINDINGS: ALIGNMENT: Anatomic. With mild levo convexity. MINERALIZATION: Normal. VERTEBRAL BODIES: No fractures or dislocation. Moderate atlantoaxial osteoarthritis with 0.2 cm deve lopmental fragments. DISCS: Lvxy-pk-vgmeqzln disc desiccation/bulge between the C4 and C7 levels with khym-rn-oackrabm spi nal canal stenosis. FACETS, LATERAL MASSES, POSTERIOR ELEMENTS: No fractures. No dislocation. No acute findings. HARDWARE: None in the spine. VISUALIZED RIBS: No fractures. LUNG APICES AND SOFT TISSUES: No significant or acute findings. OTHER: No other significant finding. IMPRESSION: No acute findings. TECHNICAL DOCUMENTATION: JOB ID: [id number] Quality ID # [id number]: Final reports with documentation of one or more dose reduction techniques (e.g., Au tomated exposure control, adjustment of the mA and/or kV according to patient size, use of iterative reconstruction technique) 2010 [employer]- All Rights Reserved
--- NOTE | 2017-05-20 03:31 | RADIOLOGY REPORT (SQ) ---
EXAM DESCRIPTION: CT THORACIC SPINE WITHOUT COMPLETED DATE/TIME: 05/20/2017 3:04 am REASON FOR STUDY: fall pain COMPARISON: None. TECHNIQUE: Axial images acquired through the thoracic spine without intravenous contrast. Images re viewed with lung, soft tissue and bone windows. Reconstructed coronal and sagittal MPR images review ed. Images stored on PACS. All CT scanners at this facility use dose modulation, iterative reconstruction, and/or weight based d osing when appropriate to reduce radiation dose to as low as reasonably achievable (ALARA). [facility]: Dose Right [facility]: CareDose [facility]: Dose Right [facility]: Teradose 4D [facility]: Smart [employer] RADIATION DOSE: Up-to-date CT equipment and radiation dose reduction techniques were employed. CTDIv ol: 121.2 mGy. DLP: 4036 mGy-cm. mGy. LIMITATIONS: None. FINDINGS: VISUALIZED LUNGS: No acute opacities. No pneumothorax. SOFT TISSUES: No soft tissue swelling. No masses. VERTEBRAL BODIES: No fractures. No dislocation. No acute findings. DISCS: Mild lower thoracic disc desiccation. ALIGNMENT: Normal. TRANSVERSE PROCESSES, POSTERIOR ELEMENTS: No fractures. No dislocation. No acute findings. Abnorma l CT of the lumbar spine reported separately. HARDWARE: None in the spine. VISUALIZED RIBS: No fractures. OTHER: Bilateral nephrolithiasis measures up to 0.4 cm. IMPRESSION: No acute findings of the thoracic spine. Small nephrolithiasis. Abnormal CT of the lum bar spine reported separately. TECHNICAL DOCUMENTATION: JOB ID: [id number] Quality ID # 436: Final reports with documentation of one or more dose reduction techniques (e.g., Au tomated exposure control, adjustment of the mA and/or kV according to patient size, use of iterative reconstruction technique) 2010 [employer]- All Rights Reserved
--- NOTE | 2017-05-20 03:40 | RADIOLOGY REPORT (SQ) ---
EXAM DESCRIPTION: CT LUMBAR SPINE WITHOUT COMPLETED DATE/TIME: 05/20/2017 3:04 am REASON FOR STUDY: fall pain COMPARISON: CT, renal system, 02/14/2017. TECHNIQUE: Axial images acquired through the lumbar spine without intravenous contrast. Images revi ewed with lung, soft tissue and bone windows. Reconstructed coronal and sagittal MPR images reviewed . All images stored on PACS. All CT scanners at this facility use dose modulation, iterative reconstruction, and/or weight based d osing when appropriate to reduce radiation dose to as low as reasonably achievable (ALARA). [facility]: Dose Right [facility]: CareDose [facility]: Dose Right [facility]: Teradose 4D [facility]: [employer] RADIATION DOSE: [id number] LIMITATIONS: None. FINDINGS: SEGMENTATION: Normal. No transitional anatomy. ALIGNMENT: Normal. VERTEBRAL BODIES: No fractures. No dislocation. No acute findings. DISCS: Uciv-zg-faweqhsl disc desiccation between the L4 and S1 levels. Moderate vacuum disc desiccat ion and bulge at the L5-S1 level with hmxs-rw-gbwyhpqz bilateral foraminal stenosis and mild spinal c anal stenosis. PEDICLES, TRANSVERSE PROCESSES: 0.9 cm nondisplaced fragmentation of the left transverse process, new compared with prior CT, 02/14/2017. No evidence of healing. Moderate right-sided L5-S1 spondylosis. FACETS, POSTERIOR ELEMENTS: No fractures. No dislocation. No spinal stenosis. HARDWARE: None in the spine. VISUALIZED RIBS: No fractures. SOFT TISSUES: No significant or acute finding in adjacent soft tissues. OTHER: Stacked stones of the left mid ureter at the L4-L5 disc level measure 0.5, 0.3, and 0.2 cm wi th moderate left hydronephrosis -hydroureter. Small bilateral nephrolithiasis measures up to 0.4 cm each. IMPRESSION: 1. Left mid ureteral stones measure up to 0.5 cm each causing moderate grade obstructio n. 2. Relatively new 0.9 cm nondisplaced fracture of the left L1 transverse process. TECHNICAL DOCUMENTATION: JOB ID: [id number] Quality ID # [id number]: Final reports with documentation of one or more dose reduction techniques (e.g., Au tomated exposure control, adjustment of the mA and/or kV according to patient size, use of iterative reconstruction technique) 2010 [employer]- All Rights Reserved
[2017-05-20] MEDS ORDERED: ATORVASTATIN CALCIUM 80 MG TABLET ONE (04:51)
[2017-05-20] MEDS ORDERED: ASPIRIN 81 MG TABLET, ENT COATED PO ONE (04:54)
[2017-05-20] MEDS ORDERED: ACETAMINOPHEN 325 MG TABLET ONE (04:57)
--- NOTE | 2017-05-20 08:10 | EKG REPORT ---
SEVERITY:- NORMAL ECG - SINUS RHYTHM : Confirmed by: Bridger Whitley MD 20-May-2017 08:09:57
[2017-05-20] MEDS: DIAZEPAM INJ 10 MG/2 ML DISP.SYRIN IV PRN ×2 (10:48→20:48)
[2017-05-20] MEDS ORDERED: KETOROLAC TROMETHAMINE INJ/PF 30 MG/1 ML SDV IV PRN (12:32)
[2017-05-20] MEDS: OXYCODONE HCL IR 5 MG TABLET PO PRN ×2 (13:04→17:30)
--- NOTE | 2017-05-20 13:57 | PDOC PROGRESS REPORT ---
Subjective Progress Note for:: 05/20/17 Subjective:: complains of back pain Physical Exam Vital Signs: Temp Pulse Resp BP Pulse Ox 97.7 F 64 18 138/94 H 97 05/20/17 11:26 05/20/17 11:26 05/20/17 11:26 05/20/17 11:26 05/20/17 11:26 Intake & Output 05/19/17 05/20/17 05/21/17 06:59 06:59 06:59 Intake Total 0 Output Total 100 Balance -100 Weight 56.9 kg General appearance: PRESENT: no acute distress Eye exam: PRESENT: conjunctiva pink. ABSENT: scleral icterus Mouth exam: PRESENT: moist, tongue midline Neck exam: ABSENT: JVD Respiratory exam: PRESENT: clear to auscultation ashia. ABSENT: rales, rhonchi, wheezes Cardiovascular exam: PRESENT: RRR. ABSENT: diastolic murmur, rubs, systolic murmur GI/Abdominal exam: PRESENT: normal bowel sounds, soft. ABSENT: distended, guarding, mass, organolmegaly, rebound, tenderness Extremities exam: ABSENT: calf tenderness, clubbing, pedal edema Neurological exam: PRESENT: alert, awake, oriented to person, oriented to place , oriented to time, oriented to situation Psychiatric exam: PRESENT: appropriate affect Skin exam: PRESENT: other - eccymosis on left arm Results Impressions: Chest X-Ray 05/20/17 01:37 IMPRESSION: No acute cardiopulmonary findings. Head CT 05/20/17 01:37 IMPRESSION: NORMAL BRAIN CT WITHOUT CONTRAST. Cervical Spine CT 05/20/17 02:06 IMPRESSION: No acute findings. Thoracic Spine CT 05/20/17 02:06 IMPRESSION: No acute findings of the thoracic spine. Small nephrolithiasis. Abnormal CT of the lumbar spine reported separately. Lumbar Spine CT 05/20/17 02:07 IMPRESSION: 1. Left mid ureteral stones measure up to 0.5 cm each causing moderate grade obstruction. 2. Relatively new 0.9 cm nondisplaced fracture of the left L1 transverse process. Assessment & Plan - Diagnosis (1) History of CVA with residual deficit Is this a current diagnosis for this admission?: Yes Plan: There was concern that she may have had another stroke, but the patient denies yamila weakness or sensory changes from baseline. Main complaint is back pain from her fall. (2) Back pain Is this a current diagnosis for this admission?: Yes Plan: has a compression fracture as well as kidney stones. will give narcotics as needed. (3) HTN (hypertension) Is this a current diagnosis for this admission?: Yes (4) Bipolar 1 disorder Is this a current diagnosis for this admission?: Yes (5) Cerebral palsy Is this a current diagnosis for this admission?: Yes (6) COPD (chronic obstructive pulmonary disease) Qualifiers: Is this a current diagnosis for this admission?: Yes (7) Hyperlipidemia Qualifiers: Is this a current diagnosis for this admission?: Yes (8) Hypothyroid Qualifiers: Is this a current diagnosis for this admission?: Yes (9) Personal history of DVT (deep vein thrombosis) Is this a current diagnosis for this admission?: Yes (10) CAD (coronary artery disease) Is this a current diagnosis for this admission?: Yes Plan: denies any chest pain - Time Time Spent with patient: 25-34 minutes - Inpatient Certification Medical Necessity: Need Close Monitoring Due to Risk of Patient Decompensation
[2017-05-20] MEDS: PROMETHAZINE HCL 25 MG TABLET PO PRN (20:48)
[2017-05-21] MEDS: OXYCODONE HCL IR 5 MG TABLET PO PRN ×3 (02:45→18:11)
[2017-05-21] MEDS: DIAZEPAM INJ 10 MG/2 ML DISP.SYRIN IV PRN ×2 (06:54→20:28)
[2017-05-21] MEDS: PROMETHAZINE HCL 25 MG TABLET PO PRN ×2 (08:43→21:57)
[2017-05-21] MEDS ORDERED: HYDROMORPHONE HCL INJ/PF 2 MG/ML AMPULE IV PRN (08:54)
--- NOTE | 2017-05-21 10:45 | PDOC PROGRESS REPORT ---
Subjective Progress Note for:: 05/21/17 Subjective:: complains of back pain Physical Exam Vital Signs: Temp Pulse Resp BP Pulse Ox 98.0 F 89 18 96/68 L 96 05/21/17 04:43 05/21/17 04:43 05/21/17 04:43 05/21/17 04:43 05/21/17 04:43 Intake & Output 05/20/17 05/21/17 05/22/17 06:59 06:59 06:59 Intake Total 349 Balance 349 General appearance: PRESENT: no acute distress Eye exam: PRESENT: conjunctiva pink. ABSENT: scleral icterus Ear exam: PRESENT: normal external ear exam Neck exam: ABSENT: JVD Respiratory exam: PRESENT: clear to auscultation ashia. ABSENT: rales, rhonchi, wheezes Cardiovascular exam: PRESENT: RRR. ABSENT: diastolic murmur, rubs, systolic murmur GI/Abdominal exam: PRESENT: normal bowel sounds, soft. ABSENT: distended, guarding, mass, organolmegaly, rebound, tenderness Extremities exam: ABSENT: calf tenderness, clubbing, pedal edema Neurological exam: PRESENT: alert, awake, oriented to person, oriented to place , oriented to time, oriented to situation, CN II-XII grossly intact. ABSENT: motor sensory deficit Psychiatric exam: PRESENT: appropriate affect Skin exam: PRESENT: dry, intact, warm. ABSENT: cyanosis, rash Results Impressions: Chest X-Ray 05/20/17 01:37 IMPRESSION: No acute cardiopulmonary findings. Head CT 05/20/17 01:37 IMPRESSION: NORMAL BRAIN CT WITHOUT CONTRAST. Cervical Spine CT 05/20/17 02:06 IMPRESSION: No acute findings. Thoracic Spine CT 05/20/17 02:06 IMPRESSION: No acute findings of the thoracic spine. Small nephrolithiasis. Abnormal CT of the lumbar spine reported separately. Lumbar Spine CT 05/20/17 02:07 IMPRESSION: 1. Left mid ureteral stones measure up to 0.5 cm each causing moderate grade obstruction. 2. Relatively new 0.9 cm nondisplaced fracture of the left L1 transverse process. Assessment & Plan - Diagnosis (1) History of CVA with residual deficit Is this a current diagnosis for this admission?: Yes Plan: There was concern that she may have had another stroke, but the patient denies yamila weakness or sensory changes from baseline. Main complaint is back pain from her fall. (2) Back pain Is this a current diagnosis for this admission?: Yes Plan: has a compression fracture as well as kidney stones. will give narcotics as needed. (3) HTN (hypertension) Is this a current diagnosis for this admission?: Yes (4) Bipolar 1 disorder Is this a current diagnosis for this admission?: Yes (5) Cerebral palsy Is this a current diagnosis for this admission?: Yes (6) COPD (chronic obstructive pulmonary disease) Qualifiers: Is this a current diagnosis for this admission?: Yes (7) Hyperlipidemia Qualifiers: Is this a current diagnosis for this admission?: Yes (8) Hypothyroid Qualifiers: Is this a current diagnosis for this admission?: Yes (9) Personal history of DVT (deep vein thrombosis) Is this a current diagnosis for this admission?: Yes (10) CAD (coronary artery disease) Is this a current diagnosis for this admission?: Yes Plan: denies any chest pain (11) Nausea & vomiting Is this a current diagnosis for this admission?: Yes Plan: will give iv reglan - Time Time Spent with patient: 25-34 minutes - Inpatient Certification Medical Necessity: Need Close Monitoring Due to Risk of Patient Decompensation, Need For IV Fluids
[2017-05-21 11:04] LABS: EOSINOPHILS % (AUTO) 3.9 % (0-6); HEMATOCRIT 42.4 % (36.0-47.0); HGB HCT DIFFERENCE 0.2; MEAN CORPUSCULAR HEMOGLOBIN 30.2 pg (27.0-33.4); MEAN CORPUSCULAR HGB CONC 33.4 g/dL (32.0-36.0); MEAN CORPUSCULAR VOLUME 90 fl (80-97); MONOCYTES % (AUTO) 5.4 % (3-13); RED BLOOD COUNT 4.69 10^6/uL (3.72-5.28); RED CELL DISTRIBUTION WIDTH 14.6 % (11.5-14.0); SEGMENTED NEUTROPHILS % (AUTO) 73.8 % (42-78); WHITE BLOOD COUNT 7.5 10^3/uL (4.0-10.5)
[2017-05-21 11:05] LABS: ABSOLUTE BASOPHILS # (AUTO) 0.1 10^3/uL (0.0-0.2); ABSOLUTE EOSINOPHILS # (AUTO) 0.3 10^3/uL (0.0-0.6); ABSOLUTE LYMPHOCYTES (AUTO) 1.2 10^3/uL (0.5-4.7); ABSOLUTE MONOCYTES (AUTO) 0.4 10^3/uL (0.1-1.4); ABSOLUTE NEUT (AUTO) 5.5 10^3/uL (1.7-8.2); BASOPHILS % (AUTO) 0.9 % (0-2); HEMOGLOBIN 14.2 g/dL (12.0-15.5)
[2017-05-21] MEDS: NORMAL SALINE 1000 ML 1,000 ML IV PRN ×2 (12:31→17:49)
[2017-05-21] MEDS: METOCLOPRAMIDE HCL INJ/PF 10 MG/2 ML SDV IV SCH ×3 (12:31→23:44)
[2017-05-21] MEDS: HYDROMORPHONE HCL INJ/PF 2 MG/ML AMPULE IV PRN ×2 (14:11→21:57)
[2017-05-22] MEDS: NORMAL SALINE 1000 ML 1,000 ML IV PRN (02:47)
[2017-05-22] MEDS: HYDROMORPHONE HCL INJ/PF 2 MG/ML AMPULE IV PRN ×2 (02:54→08:19)
[2017-05-22 05:16] LABS: ANION GAP 8 (5-19); BLOOD UREA NITROGEN 6 mg/dL (7-20); CALCIUM 9.1 mg/dL (8.4-10.2); CARBON DIOXIDE 22 mmol/L (22-30); CHLORIDE 111 mmol/L (98-107); CREATININE RESULT 0.63 mg/dL (0.52-1.25); GLUCOSE 97 mg/dL (75-110); SODIUM 140.8 mmol/L (137-145)
[2017-05-22] MEDS: METOCLOPRAMIDE HCL INJ/PF 10 MG/2 ML SDV IV SCH ×4 (05:24→23:49)
[2017-05-22] MEDS: DIAZEPAM INJ 10 MG/2 ML DISP.SYRIN IV PRN (06:20)
[2017-05-22] MEDS: PROMETHAZINE HCL 25 MG TABLET PO PRN (08:19)
[2017-05-22] MEDS ORDERED: LORAZEPAM 1 MG TABLET PO PRN (10:13)
[2017-05-22] MEDS ORDERED: LORAZEPAM 1 MG TABLET ONE (10:26)
[2017-05-22] MEDS: OXYCODONE HCL IR 5 MG TABLET PO PRN (10:27)
[2017-05-22] MEDS ORDERED: PROMETHAZINE HCL 25 MG TABLET PO PRN (10:47)
[2017-05-22] MEDS ORDERED: OXYCODONE HCL PO PRN ×2 (10:47→11:17)
[2017-05-22] MEDS ORDERED: [UNRECOGNIZED DRUG - OTHER] PO PRN ×2 (10:47→11:17)
[2017-05-22] MEDS ORDERED: ALPRAZOLAM 0.5 MG TABLET PO PRN (10:47)
[2017-05-22] MEDS ORDERED: ACETAMINOPHEN PO PRN ×2 (10:47→11:17)
[2017-05-22] MEDS ORDERED: OXYCODONE-ACETAMINOPHEN 5-325 MG TABLET PO PRN (10:59)
[2017-05-22] MEDS ORDERED: OXYCODONE HCL IR 5 MG TABLET PO PRN (11:01)
[2017-05-22] MEDS ORDERED: DULOXETINE HCL 30 MG CAPSULE.DR PO ONE (11:30)
[2017-05-22] MEDS ORDERED: PAROXETINE HCL 20 MG TABLET PO ONE (11:30)
[2017-05-22] MEDS ORDERED: ASPIRIN 81 MG TABLET, ENT COATED PO ONE (11:30)
--- NOTE | 2017-05-22 13:06 | PDOC PROGRESS REPORT ---
Subjective Progress Note for:: 05/22/17 Subjective:: complains of back pain Physical Exam Vital Signs: Temp Pulse Resp BP Pulse Ox 98.8 F 89 20 141/85 H 100 05/22/17 07:40 05/22/17 07:40 05/22/17 07:40 05/22/17 07:40 05/22/17 07:40 Intake & Output 05/21/17 05/22/17 05/23/17 06:59 06:59 06:59 Intake Total 349 1926 Balance 349 1926 Weight 58.6 kg General appearance: PRESENT: no acute distress Eye exam: PRESENT: conjunctiva pink. ABSENT: scleral icterus Mouth exam: PRESENT: moist, tongue midline Neck exam: ABSENT: JVD Respiratory exam: PRESENT: clear to auscultation ashia. ABSENT: rales, rhonchi, wheezes Cardiovascular exam: PRESENT: RRR. ABSENT: diastolic murmur, rubs, systolic murmur GI/Abdominal exam: PRESENT: normal bowel sounds, soft. ABSENT: distended, guarding, mass, organolmegaly, rebound, tenderness Extremities exam: ABSENT: calf tenderness, clubbing, pedal edema Neurological exam: PRESENT: alert, awake, oriented to person, oriented to place , oriented to time, oriented to situation, CN II-XII grossly intact. ABSENT: motor sensory deficit Psychiatric exam: PRESENT: appropriate affect Results Laboratory Results: 05/21/17 09:55 05/22/17 04:22 05/22/17 04:22 Sodium 140.8 Potassium 4.0 Chloride 111 H Carbon Dioxide 22 Anion Gap 8 BUN 6 L Creatinine 0.63 Est GFR ( Amer) > 60 Est GFR (Non-Af Amer) > 60 Glucose 97 Calcium 9.1 Impressions: Chest X-Ray 05/20/17 01:37 IMPRESSION: No acute cardiopulmonary findings. Head CT 05/20/17 01:37 IMPRESSION: NORMAL BRAIN CT WITHOUT CONTRAST. Cervical Spine CT 05/20/17 02:06 IMPRESSION: No acute findings. Thoracic Spine CT 05/20/17 02:06 IMPRESSION: No acute findings of the thoracic spine. Small nephrolithiasis. Abnormal CT of the lumbar spine reported separately. Lumbar Spine CT 05/20/17 02:07 IMPRESSION: 1. Left mid ureteral stones measure up to 0.5 cm each causing moderate grade obstruction. 2. Relatively new 0.9 cm nondisplaced fracture of the left L1 transverse process. Assessment & Plan - Diagnosis (1) History of CVA with residual deficit Is this a current diagnosis for this admission?: Yes Plan: There was concern that she may have had another stroke, but the patient denies yamila weakness or sensory changes from baseline. Main complaint is back pain from her fall. (2) Back pain Is this a current diagnosis for this admission?: Yes Plan: has a compression fracture as well as kidney stones. will give narcotics as needed. Because of the continued pain we will get an MRI to evaluate the lumbar fracture and consult pain management. (3) HTN (hypertension) Is this a current diagnosis for this admission?: Yes (4) Bipolar 1 disorder Is this a current diagnosis for this admission?: Yes (5) Cerebral palsy Is this a current diagnosis for this admission?: Yes (6) COPD (chronic obstructive pulmonary disease) Qualifiers: Is this a current diagnosis for this admission?: Yes (7) Hyperlipidemia Qualifiers: Is this a current diagnosis for this admission?: Yes (8) Hypothyroid Qualifiers: Is this a current diagnosis for this admission?: Yes (9) Personal history of DVT (deep vein thrombosis) Is this a current diagnosis for this admission?: Yes (10) CAD (coronary artery disease) Is this a current diagnosis for this admission?: Yes Plan: denies any chest pain (11) Nausea & vomiting Is this a current diagnosis for this admission?: Yes Plan: will continue iv reglan - Time Time Spent with patient: 25-34 minutes - Inpatient Certification Medical Necessity: Need Close Monitoring Due to Risk of Patient Decompensation
[2017-05-22] MEDS: ALPRAZOLAM 0.5 MG TABLET PO PRN (13:22)
[2017-05-22] MEDS: BUSPIRONE HCL 10 MG TABLET PO SCH ×2 (13:25→21:15)
[2017-05-22] MEDS: GABAPENTIN 300 MG CAPSULE PO SCH ×2 (13:26→21:14)
--- NOTE | 2017-05-22 15:41 | RADIOLOGY REPORT (SQ) ---
EXAM DESCRIPTION: MRI LUMBAR SPINE WITHOUT COMPLETED DATE/TIME: 05/22/2017 3:02 pm REASON FOR STUDY: fracture of L-1, pain D46.4 REFRACTORY ANEMIA, UNSPECIFIED COMPARISON: CT lumbar spine 05/20/2017 MRI lumbar spine 05/03/2015 TECHNIQUE: Patient was unable to complete the exam. Sagittal T1 and sagittal T2 images of the lumba r spine were obtained. LIMITATIONS: Incomplete study, motion artifact FINDINGS: Sagittal T2 and sagittal T1 weighted MRI images were obtained of the lumbar spine. These are degraded by patient motion artifact. There is no marrow signal abnormality worrisome for occult fracture or. Diffuse decreased T2 weighted intervertebral disc signal with multilevel disc space loss of height. Conus is at the L1-2 level. There is mild bilateral foraminal narrowing at T10-11, T11-12, and L1-2. Moderate bilateral foramina l narrowing at L2-3, L3-4, L4-5, and L5-S1. IMPRESSION: Limited study. No acute findings. TECHNICAL DOCUMENTATION: JOB ID: [id number] [employer]- All Rights Reserved
--- NOTE | 2017-05-22 18:17 | CONSULTATION REPORT E ---
Consultation Report NAME: SANDY LOPEZ : 1965 AGE: 52Y DATE: 05/21/2017 306 A TO: DEBRA PRETTY M.D. FROM: KRYS DE LA GARZA M.D. Requesting Physician REQUESTING PHYSICIAN: Taye Lowe M.D. REASON FOR CONSULTATION: Back pain, status post fall. CHIEF COMPLAINT: Back pain. HISTORY OF PRESENT ILLNESS: Ms. Sandy Lopez is a 52-year-old female with a past medical history of cerebral palsy and frequent nephrolithiasis, stroke, and leukemia in remission, who presented to the emergency department on 05/20/2017 after a fall. The patient notes today that she had a fall from a ladder "a few weeks back." She is not sure exactly how long ago this was. She states that she had severe nausea and diarrhea as well, and that is what brought her to the hospital. Apparently this was in the setting of having a kidney stone removed with stenting approximately 1 week ago. The patient had some nausea and diarrhea in house and was also found to have a fracture of the transverse process of L1 on CT scan. The patient notes today that the worst of her pain is in her mid to lower back. The pain is constant in nature but is worse with any sort of movement. She states that pain medications are helpful, though she notes that the oxycodone 5 mg is not strong enough. She states that her pain is best helped by IV Dilaudid, though that she notes that this needs to be taken in conjunction with Phenergan given its nausea component. Otherwise, the patient is on gabapentin and duloxetine for chronic pain issues. She notably has been previously established as a pain at [facility] for a multitude of painful issues though she has not been seen at our clinic for the past 6 months. PAST MEDICAL HISTORY: 1. Congestive heart failure. 2. History of DVT. 3. Hypercholesterolemia. 4. Hypertension. 5. COPD. 6. History of cerebrovascular accident. 7. History of seizures. 8. Cerebral palsy. 9. Hypothyroidism. 10. Nephrolithiasis. 11. History of breast cancer and lymphoma. 12. Gastroesophageal reflux disease. 13. Arthritis. 14. Bipolar disorder. 15. Depression. PAST SURGICAL HISTORY: 1. Appendectomy. 2. Bladder tack. 3. Hysterectomy. 4. Renal surgery. 5. Stone removal and stent. 6. And Tubal ligation. 7. As well as cardiac catheterization. ALLERGIES: 1. IONATED CONTRAST. 2. KETOROLAC. 3. ZOFRAN. 4. SULFA. 5. TRIMETHOPRIM. CURRENT MEDICATIONS: 1. Xanax 0.5 mg p.o. q.12 h. p.r.n. 2. Aspirin 81 mg p.o. daily. 3. BuSpar 10 mg p.o. q.8. 4. Diazepam 2 mg IV q.8 h. p.r.n. back spasms in house. 5. Duloxetine 50 mg p.o. q.12. 6. Neurontin 600 mg p.o. q.8 h. 7. Dilaudid 1 mg IV q.4 h. p.r.n. pain. 8. Reglan 5 mg IV q.6 h. schedule. 9. Oxycodone 5 mg p.o. q.4 h. p.r.n. pain. 10. Paxil 40 mg p.o. q.12. 11. Phenergan 25 mg p.o. q.6 p.r.n. nausea/vomiting. 12. Ambien 10 mg p.o. at bedtime. SOCIAL HISTORY: The patient reports that she has never smoked. She lives with her son. She denies any illicit drug use. FAMILY HISTORY: Positive for arthritis, CAD, and stroke. REVIEW OF SYSTEMS: The patient endorses nausea, recent vomiting and diarrhea. She endorses back pain. She denies any numbness, tingling, loss of bowel or bladder function, inability to move legs that is different from previous. The remainder of the review of systems is negative. PHYSICAL EXAMINATION: VITAL SIGNS: Temperature 98.9. Pulse 88. Blood pressure 132/92. Respirations 18. Saturation 100% on room air. PAIN SCORE: 4 out of 5 on a numeric grading scale. GENERAL: The patient is a well-developed, mildly overweight female lying in the bed. She is in no acute distress from pain. She is sitting comfortably. HEENT: Head is normocephalic/atraumatic. EYES: EOMI. PERRL. ENT: The patient is edentulous. Speech is somewhat difficult to understand. RESPIRATORY: Even and unlabored work of breathing. CARDIOVASCULAR: Pulse is regular. SKIN: A few scattered ecchymoses over the extremities and face. MUSCULOSKELETAL: The patient has some diffuse tenderness to palpation from cervical spine extending through the thoracic spine in the midline down to the middle of the lower back. She also has tenderness in the lumbar paravertebral musculature. This is present on both sides fairly equally. She is able to roll to her side without much difficulty. NEUROLOGIC: Moves all extremities x4. The patient is alert and oriented x4. While speech is somewhat difficult to understand, it is appropriate. PSYCHIATRIC: The patient does not appear to be in acute distress and has no signs of psych or motor slowing or sedation. LABORATORIES: A small amount of blood and leukocyte esterase in the patient's urinalysis from 05/20/2017. Elevation of alkaline phosphatase. Lumbar cervical spine CT from 05/20/2017 demonstrated no specific acute findings. There is some mild to moderate disk dissection between C4-5, C5-6, and C6-7 with some mild spinal canal stenosis, osteoarthritis of the *------* joint also noted. Thoracic spine CT from 05/20/2017 demonstrated no acute findings of the thoracic spine. She does have some small nephrolithiasis appreciated. Lumbar spine CT 05/20/2017 demonstrates transverse process 0.9 cm nondisplaced fragmentation of the left transverse process, some spondylosis at L5-S1 and mild to moderate disk dissection between the L4 and S1 levels. Also incidentally noted, she has stones in the left mid ureter at the L4-5 level and small bilateral hydronephrosis. Lumbar spine MRI dated 05/22/2017: Note, MRI unable to be completed secondary to motion. No acute compression fracture appreciated. Multi-level disk disease, chronic in nature. IMPRESSION: 1. Acute back pain status post fall. 2. Nondisplaced L1 transverse process fracture. 3. Chronic opioid use. ASSESSMENT AND PLAN: The patient is a 52-year-old female with multiple different medical comorbidities as listed above. She has had a recent fall, although I cannot be sure of the exact dating of this. She has what appears to be a new small transverse fracture at L1 and chronic degenerative disk disease throughout the lumbar spine. I suspect she has had a flare of pain from this recent fall. The patient does note that opioids are quite helpful for her pain but best given IV. As recommendation, there is unfortunately no particular interventional therapy that would be helpful for the small transverse process fracture which will likely heal within the next 4 to 6 weeks. With regard to medications, recommend that the patient's pain medication be switched to oxycodone/acetaminophen 10/325 mg p.o. q.4 h. p.r.n. pain given that she was taking a higher dose Percocet prior to coming into the hospital. I would try to avoid IV medications if at all possible to prepare her for potential discharge. Phenergan may be continued for nausea. Continue Cymbalta and gabapentin at the current dosing. I would recommend for a trial of Lidoderm patches to be applied to the lower back. Additionally recommended stopping IV Valium at this point and transition to p.o. Flexeril 5 mg p.o. p.r.n. muscle spasm. With regard to discharge medications, I would recommend that the patient be discharged on Percocet 10/325 mg tablets p.o. q.6 h. p.r.n. for a few days and then taper to off. I am certainly happy to see her in the post-hospital discharge time period at [facility] for further followup and medication management. If there are any further questions, please do not hesitate to re-consult. Again, thank you very much for this very interesting consultation. DICTATING PHYSICIAN: DBERA PRETTY M.D. [id number] PHY#: [id number] ID: [id number] JOB#: [id number] ACCT: [id number] cc:DEBRA PRETTY M.D. >
[2017-05-22] MEDS ORDERED: CYCLOBENZAPRINE HCL 10 MG TABLET PO PRN (19:54)
[2017-05-22] MEDS: PAROXETINE HCL 20 MG TABLET PO SCH (21:15)
[2017-05-22] MEDS: DULOXETINE HCL 30 MG CAPSULE.DR PO SCH (21:15)
[2017-05-22] MEDS ORDERED: ZOLPIDEM TARTRATE 5 MG TABLET PO SCH (22:00)
[2017-05-22] MEDS: OXYCODONE-ACETAMINOPHEN 5-325 MG TABLET PO PRN (23:48)
[2017-05-23] MEDS ORDERED: LIDOCAINE 5% (700 MG) TRANSDERMAL ADH..PATCH ONE (04:13)
[2017-05-23 04:53] LABS: ABSOLUTE BASOPHILS # (AUTO) 0.1 10^3/uL (0.0-0.2); ABSOLUTE EOSINOPHILS # (AUTO) 0.2 10^3/uL (0.0-0.6); ABSOLUTE LYMPHOCYTES (AUTO) 1.9 10^3/uL (0.5-4.7); ABSOLUTE MONOCYTES (AUTO) 0.5 10^3/uL (0.1-1.4); ABSOLUTE NEUT (AUTO) 3.7 10^3/uL (1.7-8.2); BASOPHILS % (AUTO) 1.8 % (0-2); EOSINOPHILS % (AUTO) 3.4 % (0-6); HEMATOCRIT 36.6 % (36.0-47.0); HEMOGLOBIN 12.5 g/dL (12.0-15.5); HGB HCT DIFFERENCE 0.9; LYMPHOCYTES % (AUTO) 29.1 % (13-45); MEAN CORPUSCULAR HEMOGLOBIN 30.7 pg (27.0-33.4); MEAN CORPUSCULAR HGB CONC 34.3 g/dL (32.0-36.0); MEAN CORPUSCULAR VOLUME 90 fl (80-97); MONOCYTES % (AUTO) 8.5 % (3-13); RED BLOOD COUNT 4.08 10^6/uL (3.72-5.28); RED CELL DISTRIBUTION WIDTH 14.5 % (11.5-14.0); SEGMENTED NEUTROPHILS % (AUTO) 57.2 % (42-78); WHITE BLOOD COUNT 6.4 10^3/uL (4.0-10.5)
[2017-05-23 05:06] LABS: ANION GAP 7 (5-19); BLOOD UREA NITROGEN 7 mg/dL (7-20); CALCIUM 9.3 mg/dL (8.4-10.2); CARBON DIOXIDE 23 mmol/L (22-30); CHLORIDE 109 mmol/L (98-107); CREATININE RESULT 0.65 mg/dL (0.52-1.25); GLUCOSE 88 mg/dL (75-110); POTASSIUM 4.1 mmol/L (3.6-5.0); SODIUM 138.5 mmol/L (137-145)
[2017-05-23] MEDS: GABAPENTIN 300 MG CAPSULE PO SCH (05:57)
[2017-05-23] MEDS: OXYCODONE-ACETAMINOPHEN 5-325 MG TABLET PO PRN (05:58)
[2017-05-23] MEDS: BUSPIRONE HCL 10 MG TABLET PO SCH (05:58)
[2017-05-23] MEDS: METOCLOPRAMIDE HCL INJ/PF 10 MG/2 ML SDV IV SCH (05:58)
[2017-05-23] MEDS: DULOXETINE HCL 30 MG CAPSULE.DR PO SCH (09:01)
[2017-05-23] MEDS: PAROXETINE HCL 20 MG TABLET PO SCH (09:02)
[2017-05-23] MEDS: ALPRAZOLAM 0.5 MG TABLET PO PRN (09:06)
[2017-05-23] MEDS ORDERED: LIDOCAINE 5% (700 MG) TRANSDERMAL ADH..PATCH TP SCH (10:00)
[2017-05-23] MEDS ORDERED: ASPIRIN 81 MG TABLET, ENT COATED PO SCH (10:00)
[2017-05-23 11:37] VITALS: BP 108/54
--- NOTE | 2017-05-23 11:45 | PDOC DISCHARGE SUMMARY ---
General - Admit/Disc Date/PCP Admission Date/Primary Care Provider: 05/22/17 18:16 Discharge Date: 05/23/17 - Discharge Diagnosis (1) History of CVA with residual deficit Is this a current diagnosis for this admission?: Yes Summary: Patient most likely did not have a CVA and just had problems after falling off a ladder. (2) Back pain Is this a current diagnosis for this admission?: Yes Summary: Secondary to an acute L1 lumbar fracture. (3) HTN (hypertension) Is this a current diagnosis for this admission?: Yes (4) Bipolar 1 disorder Is this a current diagnosis for this admission?: Yes (5) Cerebral palsy Is this a current diagnosis for this admission?: Yes (6) COPD (chronic obstructive pulmonary disease) Is this a current diagnosis for this admission?: Yes (7) Hyperlipidemia Is this a current diagnosis for this admission?: Yes (8) Hypothyroid Is this a current diagnosis for this admission?: Yes (9) Personal history of DVT (deep vein thrombosis) Is this a current diagnosis for this admission?: Yes (10) CAD (coronary artery disease) Is this a current diagnosis for this admission?: Yes (11) Nausea & vomiting Is this a current diagnosis for this admission?: Yes - Additional Information Discharge Diet: Regular Discharge Activity: Activity As Tolerated Home Medications: Alprazolam [Xanax 0.5 mg Tablet] 0.5 mg PO BIDP PRN 05/20/17 Aspirin [Aspirin EC] 81 mg PO DAILY 05/20/17 Buspirone HCl [Buspar 10 mg Tablet] 10 mg PO Q8 05/20/17 Duloxetine HCl [Cymbalta] 60 mg PO Q12 05/20/17 Gabapentin [Neurontin] 600 mg PO Q8 05/20/17 Paroxetine HCl [Paxil] 40 mg PO Q12 05/20/17 Promethazine HCl [Phenergan 25 mg Tablet] 25 mg PO Q6HP PRN 05/20/17 Zolpidem Tartrate [Ambien 5 mg Tablet] 10 mg PO QHS 05/20/17 Lidocaine [Lidoderm 5% (700 mg) Transdermal Patch] 1 patch TP DAILY #30 adh..patch 05/23/17 Oxycodone HCl [Oxy-Ir 5 mg Tablet] 10 mg PO Q4HP PRN #10 tablet 05/23/17 History of Present Illness History of Present Illness: MARCO A SANCHEZ is a 52 year old female with cerebral palsy who fell off of a ladder and was having trouble walking afterwards. There was concern for the emergency room that she might have had a stroke because she was in difficulty walking but she reports it was mostly because of her pain in her back and she was found to have an L1 compression fracture. She denied any loss of consciousness. She denies any weakness in her arms or legs other than her baseline cerebral palsy. She has no expressive aphasia but does have some difficulty with speech because of her cerebral palsy. Patient is admitted for further workup and pain control. Hospital Course Hospital Course: 52-year-old female who fell off a ladder and fractured her L1 vertebra. The patient was admitted and monitored and started on IV pain medications. She had an MRI done which confirmed that she has a L1 vertebral fracture. Pain management was consulted and they felt that conservative treatment was indicated with no need for intervention. She was started on a lidocaine patch as well as changed from Dilaudid to oxycodone with control of her pain. Patient will follow up with pain clinic as an outpatient. While hospitalized she did have some nausea and vomiting most likely related to the narcotics which was treated with Reglan. The nausea and vomiting has resolved. Physical Exam Vital Signs: Temp Pulse Resp BP Pulse Ox 99.0 F 72 18 149/91 H 98 05/23/17 07:13 05/23/17 07:13 05/23/17 07:13 05/23/17 07:13 05/23/17 07:13 Intake & Output 05/22/17 05/23/17 05/24/17 06:59 06:59 06:59 Intake Total 2049 Output Total 1100 Balance 950 Weight 56.4 kg General appearance: PRESENT: no acute distress Eye exam: PRESENT: conjunctiva pink. ABSENT: scleral icterus Mouth exam: PRESENT: moist, tongue midline Neck exam: ABSENT: JVD Respiratory exam: PRESENT: clear to auscultation ashia. ABSENT: rales, rhonchi, wheezes Cardiovascular exam: PRESENT: RRR. ABSENT: diastolic murmur, rubs, systolic murmur GI/Abdominal exam: PRESENT: normal bowel sounds, soft. ABSENT: distended, guarding, mass, organolmegaly, rebound, tenderness Rectal exam: PRESENT: deferred Extremities exam: ABSENT: calf tenderness, clubbing, pedal edema Neurological exam: PRESENT: alert, awake, oriented to person, oriented to place , oriented to time, oriented to situation, CN II-XII grossly intact. ABSENT: motor sensory deficit Psychiatric exam: PRESENT: appropriate affect Skin exam: PRESENT: dry, intact, warm. ABSENT: cyanosis, rash Results Laboratory Results: 05/23/17 04:15 05/23/17 04:15 05/23/17 05/23/17 04:15 04:15 WBC 6.4 RBC 4.08 Hgb 12.5 Hct 36.6 MCV 90 MCH 30.7 MCHC 34.3 RDW 14.5 H Plt Count 318 Seg Neutrophils % 57.2 Lymphocytes % 29.1 Monocytes % 8.5 Eosinophils % 3.4 Basophils % 1.8 Absolute Neutrophils 3.7 Absolute Lymphocytes 1.9 Absolute Monocytes 0.5 Absolute Eosinophils 0.2 Absolute Basophils 0.1 Sodium 138.5 Potassium 4.1 Chloride 109 H Carbon Dioxide 23 Anion Gap 7 BUN 7 Creatinine 0.65 Est GFR ( Amer) > 60 Est GFR (Non-Af Amer) > 60 Glucose 88 Calcium 9.3 Impressions: Chest X-Ray 05/20/17 01:37 IMPRESSION: No acute cardiopulmonary findings. Head CT 05/20/17 01:37 IMPRESSION: NORMAL BRAIN CT WITHOUT CONTRAST. Cervical Spine CT 05/20/17 02:06 IMPRESSION: No acute findings. Thoracic Spine CT 05/20/17 02:06 IMPRESSION: No acute findings of the thoracic spine. Small nephrolithiasis. Abnormal CT of the lumbar spine reported separately. Lumbar Spine CT 05/20/17 02:07 IMPRESSION: 1. Left mid ureteral stones measure up to 0.5 cm each causing moderate grade obstruction. 2. Relatively new 0.9 cm nondisplaced fracture of the left L1 transverse process. Lumbar Spine MRI 05/22/17 00:00 IMPRESSION: Limited study. No acute findings. Qualifiers PATEINT BEING DISCHARGED WITH ANY OF THE FOLLOWING DIAGNOSIS?: No Plan Discharge Plan: Patient is discharged home in stable condition. Will follow up with primary care in 1-2 weeks. She will follow-up with the pain clinic if she continues to have problems. Time Spent: Less than 30 Minutes
== END 2017-05-23 11:27 | disposition home or self-care (01) | DRG 552 ==
LOC: ER 01:33 → UNDOADMOB 06:30 → EH 06:30 → 3N 07:44 → OBSVTOIN 05-22 18:16
PROVIDERS: ADMIT Internal Medicine; ATTEND Internal Medicine
DX: S32.018A Other fracture of first lumbar vertebra, initial encounter for closed fracture (principal); N13.2 Hydronephrosis with renal and ureteral calculous obstruction; I69.959 Hemiplegia and hemiparesis following unspecified cerebrovascular disease affecting unspecified side; W11.XXXA Fall on and from ladder, initial encounter; I11.0 Hypertensive heart disease with heart failure; F31.9 Bipolar disorder, unspecified; G80.9 Cerebral palsy, unspecified; J44.9 Chronic obstructive pulmonary disease, unspecified; E78.5 Hyperlipidemia, unspecified; E03.9 Hypothyroidism, unspecified; I25.10 Atherosclerotic heart disease of native coronary artery without angina pectoris; I50.9 Heart failure, unspecified; E78.00 Pure hypercholesterolemia, unspecified; K21.9 Gastro-esophageal reflux disease without esophagitis; M19.90 Unspecified osteoarthritis, unspecified site; M48.02 Spinal stenosis, cervical region; I69.328 Other speech and language deficits following cerebral infarction; Z86.718 Personal history of other venous thrombosis and embolism; Z79.899 Other long term (current) drug therapy; Z85.3 Personal history of malignant neoplasm of breast; Z85.72 Personal history of non-Hodgkin lymphomas; Z90.710 Acquired absence of both cervix and uterus; Z88.2 Allergy status to sulfonamides; Z88.8 Allergy status to other drugs, medicaments and biological substances; Z88.3 Allergy status to other anti-infective agents; Z91.041 Radiographic dye allergy status; Z82.61 Family history of arthritis; Z82.3 Family history of stroke; Z82.49 Family history of ischemic heart disease and other diseases of the circulatory system
CPT/HCPCS: 36415; 51701; 70450; 71010; 72125; 72128; 72131; 72148; 80048; 80053; 81001; 82550; 82553; 84484; 85025; 85610; 85730; 93005; 93010; 99285; G0378; J1170; J2765; J3360; J7030

== ENCOUNTER 2017-06-23 17:47 | Emergency (ER) | payer MEDICARE, MEDICAID ==
[2017-06-23 17:54] VITALS: BP 126/96
[2017-06-23] MEDS ORDERED: MORPHINE SULFATE 10 MG/ML INJ IV ONE (18:11)
[2017-06-23] MEDS ORDERED: NORMAL SALINE 1000 ML 1,000 ML IV PRN (18:11)
[2017-06-23] MEDS ORDERED: PROMETHAZINE HCL INJ 25 MG/1 ML VIAL IV ONE (18:11)
--- NOTE | 2017-06-23 18:13 | ER Document Report ---
ED Medical Screen (RME) - General Chief Complaint: Flank Pain Stated Complaint: FLANK PAIN Time Seen by Provider: 06/23/17 18:10 Notes: Patient presents with 1 day of left flank pain. She states it feels similar to previous kidney stones. She states she has had 4 operations to remove kidney stones. She does not appreciate any blood in her urine. She has had nausea and vomiting. TRAVEL OUTSIDE OF THE [place] IN LAST 30 DAYS: No - Related Data Allergies/Adverse Reactions: Iodinated Contrast- Oral and IV Dye Allergy (Verified 06/23/17 17:52) ketorolac [From Toradol] Allergy (Verified 06/23/17 17:52) ondansetron [From Zofran (as hydrochloride)] Allergy (Verified 06/23/17 17:52) Sulfa (Sulfonamide Antibiotics) Allergy (Verified 06/23/17 17:52) sulfamethoxazole [From Septra] Allergy (Verified 06/23/17 17:52) trimethoprim [From Septra] Allergy (Verified 06/23/17 17:52) Past Medical History - Social History Chew tobacco use (# tins/day): No Frequency of alcohol use: None Drug Abuse: None Family history: Arthritis, Malignancy, CAD, CVA, DM, Hyperlipidemia, Hypertension, Thyroid Disfunction - Past Medical History Cardiac Medical History: Reports: Hx Congestive Heart Failure, Hx DVT, Hx Hypercholesterolemia, Hx Hypertension Denies: Hx Pulmonary Embolism Pulmonary Medical History: Reports: Hx COPD, Hx Pneumonia - x2 Neurological Medical History: Reports: Hx Cerebrovascular Accident, Hx Seizures Endocrine Medical History: Reports: Hx Hypothyroidism. Denies: Hx Diabetes Mellitus Type 1, Hx Diabetes Mellitus Type 2, Hx Hyperthyroidism Renal/ Medical History: Reports: Hx Kidney Stones. Denies: Hx Peritoneal Dialysis Malignancy Medical History: Reports: Hx Breast Cancer, Hx Lymphoma GI Medical History: Reports: Hx Gastroesophageal Reflux Disease. Denies: Hx Cirrhosis, Hx Hepatitis Musculoskeltal Medical History: Reports Hx Arthritis Psychiatric Medical History: Reports: Hx Bipolar Disorder, Hx Depression Infectious Medical History: Denies: Hx Hepatitis Past Surgical History: Reports: Hx Appendectomy, Hx Cardiac Catheterization, Hx Genitourinary Surgery - Bladder tack, Hx Hysterectomy, Hx Kidney (Renal Surgery ) - stone removal and stent placed, Hx Tubal Ligation. Denies: Hx Mastectomy - lumpectomy - Immunizations Immunizations up to date: Yes Hx Diphtheria, Pertussis, Tetanus Vaccination: Yes Physical Exam - Vital signs Vitals: Temp Pulse Resp BP Pulse Ox 97.7 F 94 18 126/96 H 100 06/23/17 17:52 06/23/17 17:52 06/23/17 17:52 06/23/17 17:52 06/23/17 17:52 Course - Vital Signs Vital signs: Temp Pulse Resp BP Pulse Ox 97.7 F 94 18 126/96 H 100 06/23/17 17:52 06/23/17 17:52 06/23/17 17:52 06/23/17 17:52 06/23/17 17:52
[2017-06-23] MEDS ORDERED: HYDROCODONE/ACETAMINOPHEN 5-325 MG TABLET PO ONE (18:31)
[2017-06-23 19:09] LABS: ABSOLUTE BASOPHILS # (AUTO) 0.1 10^3/uL (0.0-0.2); ABSOLUTE EOSINOPHILS # (AUTO) 0.4 10^3/uL (0.0-0.6); ABSOLUTE LYMPHOCYTES (AUTO) 2.1 10^3/uL (0.5-4.7); ABSOLUTE MONOCYTES (AUTO) 0.4 10^3/uL (0.1-1.4); ABSOLUTE NEUT (AUTO) 3.3 10^3/uL (1.7-8.2); BASOPHILS % (AUTO) 1.2 % (0-2); EOSINOPHILS % (AUTO) 5.9 % (0-6); HEMATOCRIT 39.1 % (36.0-47.0); HEMOGLOBIN 13.9 g/dL (12.0-15.5); HGB HCT DIFFERENCE 2.6; LYMPHOCYTES % (AUTO) 33.2 % (13-45); MEAN CORPUSCULAR HEMOGLOBIN 32.4 pg (27.0-33.4); MEAN CORPUSCULAR HGB CONC 35.5 g/dL (32.0-36.0); MEAN CORPUSCULAR VOLUME 91 fl (80-97); RED BLOOD COUNT 4.27 10^6/uL (3.72-5.28); RED CELL DISTRIBUTION WIDTH 15.1 % (11.5-14.0); SEGMENTED NEUTROPHILS % (AUTO) 53.7 % (42-78); WHITE BLOOD COUNT 6.2 10^3/uL (4.0-10.5)
[2017-06-23 19:27] LABS: ALANINE AMINOTRANSFERASE 23 U/L (9-52); ALBUMIN 4.1 g/dL (3.5-5.0); ALKALINE PHOSPHATASE 128 U/L (38-126); ANION GAP 11 (5-19); ASPARTATE AMINO TRANSFERASE 16 U/L (14-36); BILIRUBIN,DIRECT 0.3 mg/dL (0.0-0.4); BILIRUBIN,TOTAL 0.3 mg/dL (0.2-1.3); BLOOD UREA NITROGEN 9 mg/dL (7-20); CALCIUM 9.9 mg/dL (8.4-10.2); CARBON DIOXIDE 26 mmol/L (22-30); CHLORIDE 105 mmol/L (98-107); CREATININE RESULT 0.79 mg/dL (0.52-1.25); GLUCOSE 106 mg/dL (75-110); POTASSIUM 3.5 mmol/L (3.6-5.0); SODIUM 141.7 mmol/L (137-145); TOTAL PROTEIN 7.2 g/dL (6.3-8.2)
[2017-06-23 19:33] LABS: APPEARANCE,URINE CLEAR; BILIRUBIN,URINE NEGATIVE (NEGATIVE); GLUCOSE, URINE NEGATIVE (NEGATIVE); KETONES,URINE NEGATIVE (NEGATIVE); LEUKOCYTE ESTERASE,URINE NEGATIVE (NEGATIVE); NITRITE,URINE NEGATIVE (NEGATIVE); PROTEIN,URINE NEGATIVE (NEGATIVE); URINE SPECIFIC GRAVITY 1.006; UROBILINOGEN,URINE NEGATIVE mg/dL (<2.0)
--- NOTE | 2017-06-23 19:33 | RADIOLOGY REPORT (SQ) ---
EXAM DESCRIPTION: CT ABD/PELVIS NO ORAL OR IV COMPLETED DATE/TIME: 06/23/2017 7:15 pm REASON FOR STUDY: left flank pain COMPARISON: January 2017 TECHNIQUE: CT scan of the abdomen and pelvis performed without intravenous or oral contrast. Images reviewed with lung, soft tissue, and bone windows. Reconstructed coronal and sagittal MPR images revi ewed. All images stored on PACS. All CT scanners at this facility use dose modulation, iterative reconstruction, and/or weight based d osing when appropriate to reduce radiation dose to as low as reasonably achievable (ALARA). [facility]: Dose Right [facility]: CareDose [facility]: Dose Right [facility]: Teradose 4D [facility]: Smart Mapluck RADIATION DOSE: Up-to-date CT equipment and radiation dose reduction techniques were employed. CTDIv ol: 5.1 mGy. DLP: 251 mGy-cm.mGy. LIMITATIONS: None. FINDINGS: LOWER CHEST: No significant findings. No nodules or infiltrates. NON-CONTRASTED LIVER, SPLEEN, ADRENALS: Evaluation limited by lack of IV contrast. No identified sign ificant masses. PANCREAS: No masses. No peripancreatic inflammatory changes. GALLBLADDER: Status post cholecystectomy RIGHT KIDNEY AND URETER: No suspicious masses. Assessment limited by lack of IV contrast. Tiny nono bstructing renal calculi are again identified. No hydronephrosis or hydroureter. LEFT KIDNEY AND URETER: No suspicious masses. Assessment limited by lack of IV contrast. Nonobstruc ting left renal calculi are identified. An obstructing 4.9 mm in diameter calculus is identified at the level of the uterovesical junction. There is hydronephrosis of the left kidney and dilatation o f the left ureter to the level of the obstructing calculus. AORTA AND RETROPERITONEUM: No aneurysm. No retroperitoneal masses or adenopathy. BOWEL AND PERITONEAL CAVITY: No obvious masses or inflammatory changes. No free fluid. APPENDIX: Not identified PELVIS, BLADDER, AND ABDOMINAL WALL:No abnormal masses. No free fluid. Bladder normal. BONES: Degenerative changes are again identified at the lumbar sacral junction. OTHER: No other significant finding. IMPRESSION: Obstructing 4.9 mm in diameter calculus at the level of the uterovesical junction on the left. Bilateral nonobstructing renal calculi. Other findings as noted above COMMENT: Quality ID # [id number]: Final reports with documentation of one or more dose reduction techniques (e.g., Automated exposure control, adjustment of the mA and/or kV according to patient size, use of iterative reconstruction technique) TECHNICAL DOCUMENTATION: JOB ID: [id number] [employer]- All Rights Reserved
== END 2017-06-23 21:15 | disposition left against medical advice (07) ==
LOC: ER 17:47
DX: R10.9 Unspecified abdominal pain (principal); I50.9 Heart failure, unspecified; E78.00 Pure hypercholesterolemia, unspecified; I10 Essential (primary) hypertension; J44.9 Chronic obstructive pulmonary disease, unspecified; E03.9 Hypothyroidism, unspecified; Z86.73 Personal history of transient ischemic attack (TIA), and cerebral infarction without residual deficits; Z88.2 Allergy status to sulfonamides; Z87.442 Personal history of urinary calculi; Z88.3 Allergy status to other anti-infective agents; Z86.718 Personal history of other venous thrombosis and embolism; Z90.710 Acquired absence of both cervix and uterus
CPT/HCPCS: 99281; 36415; 85025; 80053; 81001; 74176; A9270

== ENCOUNTER 2017-07-17 22:25 | Emergency (ER) | payer MEDICARE, MEDICAID ==
[2017-07-17 22:34] VITALS: BP 110/87
--- NOTE | 2017-07-17 23:17 | RADIOLOGY REPORT (SQ) ---
EXAM DESCRIPTION: CHEST SINGLE VIEW COMPLETED DATE/TIME: 07/17/2017 10:49 pm REASON FOR STUDY: cp COMPARISON: 04/06/2017. EXAM PARAMETERS: NUMBER OF VIEWS: One view. TECHNIQUE: Single frontal radiographic view of the chest acquired. RADIATION DOSE: NA LIMITATIONS: None. FINDINGS: LUNGS AND PLEURA: No opacities, masses or pneumothorax. No pleural effusion. Small left u pper lobar calcified granuloma. Prominent interstitium. MEDIASTINUM AND HILAR STRUCTURES: No masses. Contour normal. HEART AND VASCULAR STRUCTURES: Heart normal in size. Normal vasculature. BONES: No acute findings. HARDWARE: Right upper abdominal clips. OTHER: No other significant finding. IMPRESSION: NO ACUTE RADIOGRAPHIC FINDING IN THE CHEST. TECHNICAL DOCUMENTATION: JOB ID: [id number]
--- NOTE | 2017-07-18 07:23 | ER Document Report ---
ED Medical Screen (RME) - General Chief Complaint: Chest Pain Stated Complaint: CHEST PAIN Notes: Left without being seen TRAVEL OUTSIDE OF THE [place] IN LAST 30 DAYS: No - Related Data Allergies/Adverse Reactions: Iodinated Contrast- Oral and IV Dye Allergy (Verified 07/17/17 22:30) ketorolac [From Toradol] Allergy (Verified 07/17/17 22:30) ondansetron [From Zofran (as hydrochloride)] Allergy (Verified 07/17/17 22:30) Sulfa (Sulfonamide Antibiotics) Allergy (Verified 07/17/17 22:30) sulfamethoxazole [From Septra] Allergy (Verified 07/17/17 22:30) trimethoprim [From Septra] Allergy (Verified 07/17/17 22:30) Past Medical History - Social History Family history: Arthritis, Malignancy, CAD, CVA, DM, Hyperlipidemia, Hypertension, Thyroid Disfunction - Past Medical History Cardiac Medical History: Reports: Hx Congestive Heart Failure, Hx DVT, Hx Hypercholesterolemia, Hx Hypertension Denies: Hx Pulmonary Embolism Pulmonary Medical History: Reports: Hx COPD, Hx Pneumonia - x2 Neurological Medical History: Reports: Hx Cerebrovascular Accident, Hx Seizures Endocrine Medical History: Reports: Hx Hypothyroidism. Denies: Hx Diabetes Mellitus Type 1, Hx Diabetes Mellitus Type 2, Hx Hyperthyroidism Renal/ Medical History: Reports: Hx Kidney Stones. Denies: Hx Peritoneal Dialysis Malignancy Medical History: Reports: Hx Breast Cancer, Hx Lymphoma GI Medical History: Reports: Hx Gastroesophageal Reflux Disease. Denies: Hx Cirrhosis, Hx Hepatitis Musculoskeltal Medical History: Reports Hx Arthritis Psychiatric Medical History: Reports: Hx Bipolar Disorder, Hx Depression Infectious Medical History: Denies: Hx Hepatitis Past Surgical History: Reports: Hx Appendectomy, Hx Cardiac Catheterization, Hx Genitourinary Surgery - Bladder tack, Hx Hysterectomy, Hx Kidney (Renal Surgery ) - stone removal and stent placed, Hx Tubal Ligation. Denies: Hx Mastectomy - lumpectomy - Immunizations Immunizations up to date: Yes Hx Diphtheria, Pertussis, Tetanus Vaccination: Yes Physical Exam - Vital signs Vitals: Temp Pulse Resp BP Pulse Ox 98.5 F 94 18 110/87 H 97 07/17/17 22:30 07/17/17 22:30 07/17/17 22:30 07/17/17 22:30 07/17/17 22:30 Course - Vital Signs Vital signs: Temp Pulse Resp BP Pulse Ox 98.5 F 94 18 110/87 H 97 07/17/17 22:30 07/17/17 22:30 07/17/17 22:30 07/17/17 22:30 07/17/17 22:30 Doctor's Discharge - Discharge Condition: Good Disposition: LEFT WITHOUT BEING SEEN
--- NOTE | 2017-07-18 07:46 | EKG REPORT ---
SEVERITY:- NORMAL ECG - SINUS RHYTHM : Confirmed by: Bridger Whitley MD 18-Jul-2017 07:44:38
== END 2017-07-17 23:33 | disposition left against medical advice (07) ==
LOC: ER 22:25
DX: Z53.21 Procedure and treatment not carried out due to patient leaving prior to being seen by health care provider (principal)
CPT/HCPCS: 71010; 93005; 93010; 99281

== ENCOUNTER 2017-07-29 01:54 | Emergency (ER) | payer MEDICARE, MEDICAID ==
--- NOTE | 2017-07-29 02:23 | ER Document Report ---
ED Neck/Back Problem - General TRAVEL OUTSIDE OF THE [place] IN LAST 30 DAYS: No - General Chief Complaint: Back Pain Stated Complaint: BACK PAIN Time Seen by Provider: 07/29/17 02:08 Notes: The patient is a 52-year-old female, past medical history cerebral palsy, L1 spinal fracture last month, chronic back pain, presents with several days of tingling down bilateral legs and her usual back pain. She follows with pain management and is taking oxycodone, but was unable to fill the Lidoderm patches due to insurance reasons. Patient tripped yesterday, fell and landed on her back. Patient says she had a dull chest ache earlier today that has resolved. She denies change in bowel or bladder, saddle anesthesia, fevers, history of IVDA, rash, current chest pain, shortness of breath, nausea, vomiting or abdominal pain. (SALUD YEBOAH) - Related Data Allergies/Adverse Reactions: Iodinated Contrast- Oral and IV Dye Allergy (Verified 07/29/17 01:55) ketorolac [From Toradol] Allergy (Verified 07/29/17 01:55) ondansetron [From Zofran (as hydrochloride)] Allergy (Verified 07/29/17 01:55) Sulfa (Sulfonamide Antibiotics) Allergy (Verified 07/29/17 01:55) sulfamethoxazole [From Septra] Allergy (Verified 07/29/17 01:55) trimethoprim [From Septra] Allergy (Verified 07/29/17 01:55) Past Medical History - General Information source: Patient - Social History Smoking Status: Unknown if Ever Smoked Family History: Arthritis, CAD, CVA Patient has suicidal ideation: No Patient has homicidal ideation: No - Past Medical History Cardiac Medical History: Reports: Hx Congestive Heart Failure, Hx DVT, Hx Hypercholesterolemia, Hx Hypertension Denies: Hx Pulmonary Embolism Pulmonary Medical History: Reports: Hx COPD, Hx Pneumonia - x2 Neurological Medical History: Reports: Hx Cerebrovascular Accident, Hx Seizures Endocrine Medical History: Reports: Hx Hypothyroidism. Denies: Hx Diabetes Mellitus Type 1, Hx Diabetes Mellitus Type 2, Hx Hyperthyroidism Renal/ Medical History: Reports: Hx Kidney Stones. Denies: Hx Peritoneal Dialysis Malignancy Medical History: Reports: Hx Breast Cancer, Hx Lymphoma GI Medical History: Reports: Hx Gastroesophageal Reflux Disease. Denies: Hx Cirrhosis, Hx Hepatitis Musculoskeltal Medical History: Reports Hx Arthritis Psychiatric Medical History: Reports: Hx Bipolar Disorder, Hx Depression Infectious Medical History: Denies: Hx Hepatitis Past Surgical History: Reports: Hx Appendectomy, Hx Cardiac Catheterization, Hx Genitourinary Surgery - Bladder tack, Hx Hysterectomy, Hx Kidney (Renal Surgery ) - stone removal and stent placed, Hx Tubal Ligation. Denies: Hx Mastectomy - lumpectomy - Immunizations Immunizations up to date: Yes Hx Diphtheria, Pertussis, Tetanus Vaccination: Yes Hx Pneumococcal Vaccination: 10/05/09 Review of Systems - Review of Systems Notes: REVIEW OF SYSTEMS: CONSTITUTIONAL: -fevers, -chills EENT: -eye pain, -difficulty swallowing, -nasal congestion CARDIOVASCULAR: -syncope. RESPIRATORY: -cough, -SOB GASTROINTESTINAL: -abdominal pain, -nausea, -vomiting, -diarrhea GENITOURINARY: -dysuria, -hematuria MUSCULOSKELETAL: +back pain, -neck pain SKIN: -rash or skin lesions. HEMATOLOGIC: -easy bruising or bleeding. LYMPHATIC: -swollen, enlarged glands. NEUROLOGICAL: -altered mental status or loss of consciousness, -headache PSYCHIATRIC: -anxiety, -depression. ALL OTHER SYSTEMS REVIEWED AND NEGATIVE. (SALUD YEBOAH) Physical Exam - Vital signs Vitals: Temp Pulse Resp BP Pulse Ox 98.3 F 71 18 107/77 95 07/29/17 01:55 07/29/17 01:55 07/29/17 01:55 07/29/17 01:55 07/29/17 01:55 - Notes Notes: PHYSICAL EXAMINATION: GENERAL: Well-appearing, well-nourished and in no acute distress. HEAD: Atraumatic, normocephalic. EYES: Pupils equal round and reactive to light, extraocular movements intact, sclera anicteric, conjunctiva are normal. ENT: nares patent, oropharynx clear without exudates. Moist mucous membranes. NECK: Normal range of motion, supple without lymphadenopathy LUNGS: Breath sounds clear to auscultation bilaterally and equal. No wheezes rales or rhonchi. HEART: Regular rate and rhythm without murmurs ABDOMEN: Soft, nontender, normoactive bowel sounds. No guarding, no rebound. No masses appreciated. RECTAL: Normal rectal tone. Tingling in perineum. EXTREMITIES: Strong distal pulses. 5/5 strength in all 4 extremities. BACK: Tenderness over L1. NEUROLOGICAL: Cranial nerves grossly intact. Tingling down B/L legs. PSYCH: Normal mood, normal affect. SKIN: Warm, Dry, normal turgor, no rashes or lesions noted. (SALUD YEBOAH) Course - Diagnostic Test Radiology reviewed: Image reviewed, Reports reviewed - Re-evaluation Re-evalutation: 07/29/17 10:20 Patient's MRI is not show any significant change from previous MRI. I will have the patient discharged home follow-up with her regular family physician. ( PATRICIO MCBRIDE) Patient with chronic back pain and a prior L1 fracture. She had a recent fall and is now having tingling down bilateral legs, saddle anesthesia and difficulty urinating. Postvoid residual is 250 mL. Lumbar x-ray does not show any acute changes, but patient requires an MRI to assess for cord compression due to red flag signs for low back pain. MRI ordered and will be done ERIC. Will continue her home oxycodone 10 mg q8h PRN. (SALUD YEBOAH) - Vital Signs Vital signs: Temp Pulse Resp BP Pulse Ox 98.3 F 60 18 113/75 96 07/29/17 01:55 07/29/17 10:13 07/29/17 10:13 07/29/17 10:13 07/29/17 10:13 - Diagnostic Test Radiology results interpreted by me: Lumbar x-ray: NAD (SALUD YEBOAH) Discharge - Discharge Clinical Impression: Chronic back pain Qualifiers: Back pain location: low back pain Back pain laterality: bilateral Sciatica presence: with sciatica Sciatica laterality: bilateral sciatica Qualified Code(s ): M54.42 - Lumbago with sciatica, left side Condition: Stable Disposition: HOME, SELF-CARE Additional Instructions: LOW BACK PAIN: Three out of every four people will have an episode of disabling back pain during their lifetime. Most commonly the pain is due to straining of the muscles and ligaments in the low back. Usual treatment includes: (1) Rest on a firm surface. Avoid lying on your stomach. (2) Ice pack the painful area. After a few days, gentle heat may be used intermittently to relax the area, or ice packs can be continued. (3) Medication may be needed -- muscle relaxers and antiinflammatory medicines are commonly used. (4) As the back improves, exercises are prescribed to strengthen the back and abdominal muscles. Your doctor will advise you on the proper care for your back at each stage in your recovery. You may be better in a few days -- or healing may take several weeks. If new symptoms of a "herniated disc" (radiation of pain, numbness, or tingling down the back of the leg or weakness in the leg) occur, you should be re-examined. Further testing may be necessary. ORAL NARCOTIC MEDICATION: You have been given a prescription for pain control. This medication is a narcotic. It's best taken with food, as nausea can result if taken on an empty stomach. Don't operate machinery or drive within six hours of taking this medication. Do not combine this medicine with alcohol, or with any medication which can cause sedation (such as cold tablets or sleeping pills) unless you get permission from the physician. Narcotics tend to cause constipation. If possible, drink plenty of fluids and eat a diet high in fiber and fruits. Please be aware that prescription narcotics also have the potential for abuse. People become addicted to these medications because of the general sense of wellbeing that they induce. This feeling along with a significant reduction in tension, anxiety, and aggression provides a stimulating seductive quality to these drugs. Once your pain is under control, we encourage you to discard your unused narcotics. ICE PACKS: Apply ice packs frequently against the painful area. Many different schedules are recommended, such as "20 minutes on, 20 minutes off" or "one hour ice, two hours rest." If you need to work, you may need to go longer between ice treatments. You should plan to have the area ice packed AT LEAST one fourth of the time. The ice should be applied over the wrap, tape, or splint, or over a layer of cloth -- not directly against the skin. Some ice bags have a built-in cloth and can be put directly on the skin. WARM PACKS: After approximately two days, apply gentle heat (such as a heating pad or hot water bottle) for about 20 to 30 minutes about every two hours -- at least four times daily. Warmth and elevation will help you make a more rapid recovery , and will ease the pain considerably. Do not use HOT heat, and never apply heat for longer than 30 minutes. The continuous heat can invisibly damage skin and muscles -- even when no burn is seen on the surface. Damaged muscles can make you MORE sore. FOLLOW-UP CARE: If you have been referred to a physician for follow-up care, call the physician s office for an appointment as you were instructed or within the next two days. If you experience worsening or a significant change in your symptoms, notify the physician immediately or return to the Emergency Department at any time for re-evaluation. Sciatica Your symptoms suggest "sciatica." The pain of sciatica typically radiates down the leg. Numbness in the foot or calf may also occur. Sciatica is caused by irritation of the sciatic nerve or its branches. The irritation can be due to a herniated disk in the spine, swelling and inflammation in the muscles surrounding the sciatic nerve, or direct injury of the nerve itself. Most cases of sciatica will resolve with medical treatment. Bed rest is usually recommended initially. Surgery is only necessary when the condition will not improve with rest and antiinflammatory medication. Muscle relaxers are often given if muscle soreness is present. A CAT scan of the back may be performed if a herniated disk is suspected. Re-examination is necessary if you develop increasing numbness, localized weakness in the foot or ankle, or if the pain does not respond to rest.
--- NOTE | 2017-07-29 02:55 | RADIOLOGY REPORT (SQ) ---
EXAM DESCRIPTION: L SPINE WHOLE COMPLETED DATE/TIME: 07/29/2017 2:41 am REASON FOR STUDY: fall, back injury COMPARISON: CT, 05/20/2017. NUMBER OF VIEWS: Five views including obliques. TECHNIQUE: AP, lateral, oblique, and sacral radiographic images acquired of the lumbar spine. LIMITATIONS: None. FINDINGS: MINERALIZATION: Normal. SEGMENTATION: Normal. No transitional anatomy. ALIGNMENT: Normal. VERTEBRAE: Maintained height. No fracture or worrisome bone lesion. DISCS: Mild disc desiccation. POSTERIOR ELEMENTS: Moderate lumbosacral spondylosis. HARDWARE: Right upper abdominal clips. PARASPINAL SOFT TISSUES: Normal. PELVIS: Intact as visualized. No fractures or worrisome bone lesions. SI joints intact. OTHER: No other significant finding. IMPRESSION: No acute findings. Moderate lumbosacral spondylosis. Mild disc desiccation. Stable. TECHNICAL DOCUMENTATION: JOB ID: [id number] [email or web address]- All Rights Reserved
[2017-07-29] MEDS ORDERED: OXYCODONE HCL IR 5 MG TABLET PO SCH (05:00)
[2017-07-29] MEDS ORDERED: LORAZEPAM INJ 2 MG/1 ML VIAL IM ONE (07:27)
[2017-07-29] MEDS ORDERED: DIPHENHYDRAMINE HCL 50 MG/ML VIAL IM ONE (07:28)
[2017-07-29 10:14] VITALS: BP 113/75
--- NOTE | 2017-07-29 10:19 | RADIOLOGY REPORT (SQ) ---
EXAM DESCRIPTION: MRI LUMBAR SPINE WITHOUT COMPLETED DATE/TIME: 07/29/2017 9:58 am REASON FOR STUDY: urinary retention, back pain, fall COMPARISON: 05/03/2015, 05/22/2017 TECHNIQUE: Sagittal and Axial imaging includes T1, T2, STIR and gradient echo sequences. Coronal T2/ HASTE imaging. LIMITATIONS: Motion. FINDINGS: VISUALIZED UPPER ABDOMEN: Limited evaluation. No acute or suspicious findings suggested. SEGMENTATION: No transitional anatomy. The lowest well-developed disc space is labeled L5-S1. ALIGNMENT: Mild convex left scoliosis. Grade 1 anterolisthesis L3 relative to L2. VERTEBRAE: Intact. BONE MARROW: Normal. No marrow replacement or reactive changes. DISC SIGNAL: Desiccation multiple levels. POSTERIOR ELEMENTS: Intact. HARDWARE: None in the spine. CORD AND CONUS: Normal in size and signal intensity. Conus at the appropriate level. SOFT TISSUES: No aortic aneurysm seen. No bulky retroperitoneal adenopathy or mass. No paraspinal mas s or fluid. L1-L2: No significant spinal stenosis or exit foraminal stenosis. L2-L3: Ventral impression on the thecal sac due to disc bulge. Mild neural foraminal narrowing. L3-L4: Ventral impression on the thecal sac due to disc bulge. Facet arthropathy. Lateral recess st enosis. Mild left and moderate right neural foraminal narrowing. L4-L5: Disc bulge and facet arthropathy. Mild left and moderate right neural foraminal narrowing. L5-S1: Disc bulge and facet arthropathy. Mild left and moderate right neural foraminal narrowing. LOWER THORACIC: Incompletely imaged. No stenosis seen. SACRUM: Visualized upper sacrum intact. OTHER: No other significant findings. IMPRESSION: Spondylosis, facet arthropathy and mild malalignment. Mild spinal stenosis. No signifi cant change. TECHNICAL DOCUMENTATION: JOB ID: [id number]- All Rights Reserved
--- NOTE | 2017-07-29 19:10 | EKG REPORT ---
SEVERITY:- BORDERLINE ECG - SINUS RHYTHM BORDERLINE T ABNORMALITIES, ANT-LAT LEADS : Confirmed by: Lamin Auguste 29-Jul-2017 19:10:26
== END 2017-07-29 10:51 | disposition home or self-care (01) ==
LOC: ER 01:54
DX: M54.42 Lumbago with sciatica, left side (principal); G89.29 Other chronic pain; M54.9 Dorsalgia, unspecified; G80.9 Cerebral palsy, unspecified; R20.0 Anesthesia of skin; Z79.899 Other long term (current) drug therapy; R07.9 Chest pain, unspecified
CPT/HCPCS: 93005; 99284; 96372; 72148; 72110; 93010; J1200; J2060; A9270

== ENCOUNTER 2017-08-26 20:38 | Emergency (ER) | payer MEDICARE, MEDICAID ==
[2017-08-26] MEDS ORDERED: PROMETHAZINE HCL INJ 25 MG/1 ML VIAL IV ONE (21:13)
--- NOTE | 2017-08-26 21:13 | ER Document Report ---
ED General - General Chief Complaint: Flank Pain Stated Complaint: FLANK PAIN Time Seen by Provider: 08/26/17 21:01 TRAVEL OUTSIDE OF THE [place] IN LAST 30 DAYS: No - HPI Notes: Patient is a 52-year-old female with a history of cerebral palsy, kidney stones , CVA, chronic pain who presents the ED planing of sudden right flank pain that radiates into the groin that started 3 hours ago with associated nausea. Patient states that she vomited on a couple occasions he is the pain in the nausea. Patient states that the pain has been relatively constant. Patient states that she was seen by her urologist today and was told she does have a stone near her bladder, but is large and if she is unable to pass it by next Thursday he is going to remove it. Her urologist is out of [facility]. Patient states that she did not have any pain during that visit, but the pain started quickly this evening. Patient states that she has not urinated since the pain started. Patient has a decreased appetite because of her nausea. Patient states that she is still having normal bowel movements. Denies any headache, fever, URI, sore throat, chest pain, palpitations, syncope, cough, shortness of breath, wheeze, dyspnea, diarrhea, loss of control of bowel or bladder, numbness/tingling, saddle anesthesia, muscle paralysis/weakness, or rash. - Related Data Allergies/Adverse Reactions: hydromorphone [From Dilaudid] Allergy (Verified 08/26/17 21:06) Iodinated Contrast- Oral and IV Dye Allergy (Verified 08/26/17 20:43) ketorolac [From Toradol] Allergy (Verified 08/26/17 20:43) meperidine [From Demerol] Allergy (Verified 08/26/17 21:06) ondansetron [From Zofran (as hydrochloride)] Allergy (Verified 08/26/17 20:43) Sulfa (Sulfonamide Antibiotics) Allergy (Verified 08/26/17 20:43) sulfamethoxazole [From Septra] Allergy (Verified 08/26/17 20:43) trimethoprim [From Septra] Allergy (Verified 08/26/17 20:43) Home Medications: Current Home Medications Levothyroxine Sodium [Synthroid 50 Mcg Tablet] 50 mcg PO DAILY 08/26/17 [History ] Oxycodone HCl 1 tab PO ASDIR PRN 08/26/17 [History] Rosuvastatin Calcium [Crestor] 40 mg PO QHS 08/26/17 [History] Zolpidem Tartrate 10 mg PO QHS 08/26/17 [History] Past Medical History - Social History Smoking Status: Never Smoker Family History: Arthritis, CAD, CVA Patient has suicidal ideation: No Patient has homicidal ideation: No - Past Medical History Cardiac Medical History: Reports: Hx Congestive Heart Failure, Hx DVT, Hx Hypercholesterolemia, Hx Hypertension Denies: Hx Pulmonary Embolism Pulmonary Medical History: Reports: Hx COPD, Hx Pneumonia - x2 Neurological Medical History: Reports: Hx Cerebrovascular Accident, Hx Seizures Endocrine Medical History: Reports: Hx Hypothyroidism. Denies: Hx Diabetes Mellitus Type 1, Hx Diabetes Mellitus Type 2, Hx Hyperthyroidism Renal/ Medical History: Reports: Hx Kidney Stones. Denies: Hx Peritoneal Dialysis Malignancy Medical History: Reports: Hx Breast Cancer, Hx Lymphoma GI Medical History: Reports: Hx Gastroesophageal Reflux Disease. Denies: Hx Cirrhosis, Hx Hepatitis Musculoskeltal Medical History: Reports Hx Arthritis Psychiatric Medical History: Reports: Hx Bipolar Disorder, Hx Depression Infectious Medical History: Denies: Hx Hepatitis Past Surgical History: Reports: Hx Appendectomy, Hx Cardiac Catheterization, Hx Genitourinary Surgery - Bladder tack, Hx Hysterectomy, Hx Kidney (Renal Surgery ) - stone removal and stent placed, Hx Tubal LigationComment Only: Hx Mastectomy - lumpectomy - Immunizations Immunizations up to date: Yes Hx Diphtheria, Pertussis, Tetanus Vaccination: Yes Hx Pneumococcal Vaccination: 10/05/09 Review of Systems - Review of Systems Notes: REVIEW OF SYSTEMS: CONSTITUTIONAL : Denies fever, chills, or sweats. Denies recent illness. EENT: Denies eye, ear, throat, or mouth pain or symptoms. Denies nasal or sinus congestion or discharge. Denies throat, tongue, or mouth swelling or difficulty swallowing. CARDIOVASCULAR: Denies chest pain. Denies palpitations or racing or irregular heart beat. Denies ankle edema. RESPIRATORY: Denies cough, cold, or chest congestion. Denies shortness of breath, difficulty breathing, or wheezing. GASTROINTESTINAL: see hpi GENITOURINARY: see hpi. Denies difficulty urinating, painful urination, burning, frequency, blood in urine, or discharge. MUSCULOSKELETAL: see hpi SKIN: Denies rash, lesions or sores. NEUROLOGICAL: see hpi. Denies confusion or altered mental status. Denies passing out or loss of consciousness. Denies dizziness or lightheadedness. Denies headache. Denies weakness or paralysis or loss of use of either side. Denies sensory loss, numbness, or tingling. ALL OTHER SYSTEMS REVIEWED AND NEGATIVE. Dictation was performed using [email or web address] ([email or web address]) voice recognition software Physical Exam - Vital signs Vitals: Temp Pulse Resp BP Pulse Ox 98.4 F 74 20 139/87 H 98 08/26/17 20:45 08/26/17 20:45 08/26/17 20:45 08/26/17 20:45 08/26/17 20:45 Notes: PHYSICAL EXAMINATION: GENERAL: Well-appearing, well-nourished and in no acute distress. LUNGS: Breath sounds clear to auscultation bilaterally and equal. No wheezes rales or rhonchi. HEART: Regular rate and rhythm without murmurs, rubs, gallops. ABDOMEN: Soft, nontender, nondistended abdomen. No guarding, no rebound. No masses appreciated. Normal bowel sounds present. No CVA tenderness bilaterally. Musculoskeletal: LE's b/l: FROM to passive/active. Strength 5+/5. Extremities: No cyanosis, clubbing, or edema b/l. Peripheral pulses 2+. Capillary refill less than 3 seconds. NEUROLOGICAL: Normal sensory, motor exams PSYCH: Normal mood, normal affect. SKIN: Warm, Dry, normal turgor, no rashes or lesions noted. Course - Re-evaluation Re-evalutation: 08/26/17 22:56 Patient is an afebrile, well-hydrated, 52-year-old female who presents the ED with small 0.3 cm renal stones, and a strong suspicion of a recently passed stone based on CT, H&P, and UA. Reviewed with Dr. Graham who is in agreement with discharge plan. Low suspicion/risk for acute appendicitis, bowel obstruction, acute cholecystitis, acute cholangitis, perforated diverticulitis, incarcerated hernia, pancreatitis, perforated ulcer, peritonitis, sepsis, pelvic inflammatory disease, ectopic , tubo-ovarian abscess, ovarian torsion, or other systemic emergent condition at this time. Patient is aware that her condition can change from initial presentation and she needs to monitor symptoms closely and seek medical attention if any acute changes. Tylenol given PO today. Conservative measures otherwise for symptoms. Recheck with your Urologist in 3-5 days. Recheck with your PCM in 3-5 days. Return to the ED with any worsening/concerning symptoms otherwise as reviewed in discharge. Patient is in agreement. - Vital Signs Vital signs: Temp Pulse Resp BP Pulse Ox 98.4 F 74 20 139/82 H 96 08/26/17 20:45 08/26/17 20:45 08/26/17 20:45 08/26/17 22:01 08/26/17 22:01 - Laboratory Result Diagrams: 08/26/17 21:35 08/26/17 21:35 Laboratory results interpreted by me: 08/26/17 08/26/17 08/26/17 21:25 21:35 21:35 RDW 14.3 H Eosinophils % 7.1 H Chloride 108 H Urine Protein 100 H Urine Blood LARGE H Ur Leukocyte Esterase TRACE H Discharge - Discharge Clinical Impression: Renal stones, recently passed ureteral stone Condition: Stable Disposition: HOME, SELF-CARE Additional Instructions: Maintain adequate fluid and food intake Monitor symptoms closely Tylenol/ibuprofen if needed Recheck with your urologist in 3-5 days recheck with your PCM in 3-5 days Return to the ED with any worsening symptoms and/or development of fever, headache, chest pain, palpitations, syncope, shortness of breath, trouble breathing, abdominal pain, n/v/d, blood in stool/urine, loss of control of bowel /bladder, urinary retention, or other worsening symptoms that are concerning to you. Forms: Elevated Blood Pressure Referrals: [facility] [Provider Group] - Follow up as needed DANNI BOSWELL MD [Primary Care Provider] - Follow up in 3-5 days
[2017-08-26 21:42] LABS: APPEARANCE,URINE CLOUDY; BILIRUBIN,URINE NEGATIVE (NEGATIVE); GLUCOSE, URINE NEGATIVE (NEGATIVE); KETONES,URINE NEGATIVE (NEGATIVE); LEUKOCYTE ESTERASE,URINE TRACE (NEGATIVE); NITRITE,URINE NEGATIVE (NEGATIVE); PROTEIN,URINE 100 mg/dL (NEGATIVE); URINE SPECIFIC GRAVITY 1.028; UROBILINOGEN,URINE NEGATIVE mg/dL (<2.0)
[2017-08-26 21:47] LABS: ABSOLUTE EOSINOPHILS # (AUTO) 0.6 10^3/uL (0.0-0.6); ABSOLUTE LYMPHOCYTES (AUTO) 2.3 10^3/uL (0.5-4.7); ABSOLUTE MONOCYTES (AUTO) 0.7 10^3/uL (0.1-1.4); ABSOLUTE NEUT (AUTO) 4.3 10^3/uL (1.7-8.2); BASOPHILS % (AUTO) 0.2 % (0-2); EOSINOPHILS % (AUTO) 7.1 % (0-6); HEMATOCRIT 37.2 % (36.0-47.0); HGB HCT DIFFERENCE 1.8; LYMPHOCYTES % (AUTO) 29.4 % (13-45); MEAN CORPUSCULAR VOLUME 91 fl (80-97); MONOCYTES % (AUTO) 8.6 % (3-13); RED BLOOD COUNT 4.08 10^6/uL (3.72-5.28); RED CELL DISTRIBUTION WIDTH 14.3 % (11.5-14.0); SEGMENTED NEUTROPHILS % (AUTO) 54.7 % (42-78); WHITE BLOOD COUNT 7.8 10^3/uL (4.0-10.5)
[2017-08-26 22:16] LABS: ALANINE AMINOTRANSFERASE 18 U/L (9-52); ALBUMIN 3.9 g/dL (3.5-5.0); ALKALINE PHOSPHATASE 126 U/L (38-126); ANION GAP 12 (5-19); ASPARTATE AMINO TRANSFERASE 23 U/L (14-36); BILIRUBIN,DIRECT 0.3 mg/dL (0.0-0.4); BILIRUBIN,TOTAL 0.4 mg/dL (0.2-1.3); BLOOD UREA NITROGEN 12 mg/dL (7-20); CALCIUM 9.4 mg/dL (8.4-10.2); CARBON DIOXIDE 25 mmol/L (22-30); CHLORIDE 108 mmol/L (98-107); CREATININE RESULT 0.83 mg/dL (0.52-1.25); GLUCOSE 92 mg/dL (75-110); POTASSIUM 4.1 mmol/L (3.6-5.0); SODIUM 144.5 mmol/L (137-145)
[2017-08-26] MEDS ORDERED: LIDOCAINE 5% (700 MG) TRANSDERMAL ADH..PATCH TP ONE (22:41)
--- NOTE | 2017-08-26 22:50 | RADIOLOGY REPORT (SQ) ---
EXAM DESCRIPTION: CT LTD RENAL STONE PROTOCOL ON COMPLETED DATE/TIME: 08/26/2017 10:17 pm REASON FOR STUDY: rt flank pain COMPARISON: 02.14.17 TECHNIQUE: CT scan of the abdomen and pelvis performed without intravenous or oral contrast. Images reviewed with lung, soft tissue, and bone windows. Reconstructed coronal and sagittal MPR images revi ewed. All images stored on PACS. All CT scanners at this facility use dose modulation, iterative reconstruction, and/or weight based d osing when appropriate to reduce radiation dose to as low as reasonably achievable (ALARA). [facility]: Dose Right [facility]: CareDose [facility]: Dose Right [facility]: Teradose 4D [facility]: Smart [employer] RADIATION DOSE: CT Rad equipment meets quality standard of care and radiation dose reduction techniq ues were employed. CTDIvol: 4.9 mGy. DLP: 238 mGy-cm.mGy. LIMITATIONS: None. FINDINGS: LOWER CHEST: No significant findings. No nodules or infiltrates. NON-CONTRASTED LIVER, SPLEEN, ADRENALS: Evaluation limited by lack of IV contrast. No identified sign ificant masses. PANCREAS: No masses. No peripancreatic inflammatory changes. GALLBLADDER: Surgically absent. RIGHT KIDNEY AND URETER: No suspicious masses. Assessment limited by lack of IV contrast. Renal sto haydee measure up to 0.3 cm each. Mild nonspecific prominence of the right renal collecting system. LEFT KIDNEY AND URETER: No suspicious masses. Assessment limited by lack of IV contrast. Renal ston es measure up to the 0.3 cm each. No hydronephrosis or hydroureter. AORTA AND RETROPERITONEUM: No aneurysm. No retroperitoneal masses or adenopathy. BOWEL AND PERITONEAL CAVITY: No obvious masses or inflammatory changes. No free fluid. APPENDIX: Surgically absent. PELVIS, BLADDER, AND ABDOMINAL WALL:No abnormal masses. No free fluid. Bladder normal. Uterus is wang gically absent. BONES: Moderate vacuum disc desiccation between the T12 and S1 levels. OTHER: No other significant finding. IMPRESSION: No acute findings. Small bilateral nephrolithiasis. COMMENT: Quality ID # [id number]: Final reports with documentation of one or more dose reduction techniques (e.g., Automated exposure control, adjustment of the mA and/or kV according to patient size, use of iterative reconstruction technique) TECHNICAL DOCUMENTATION: JOB ID: [id number]- All Rights Reserved
[2017-08-26] MEDS ORDERED: ACETAMINOPHEN 325 MG TABLET PO ONE (22:56)
[2017-08-26 23:18] VITALS: BP 128/75
== END 2017-08-26 23:17 | disposition home or self-care (01) ==
LOC: ER 20:38
DX: N20.0 Calculus of kidney (principal); R10.9 Unspecified abdominal pain; G89.29 Other chronic pain; R11.0 Nausea; I50.9 Heart failure, unspecified; E78.00 Pure hypercholesterolemia, unspecified; I11.0 Hypertensive heart disease with heart failure; J44.9 Chronic obstructive pulmonary disease, unspecified; E03.9 Hypothyroidism, unspecified; Z87.442 Personal history of urinary calculi; Z86.73 Personal history of transient ischemic attack (TIA), and cerebral infarction without residual deficits; Z86.718 Personal history of other venous thrombosis and embolism; Z88.2 Allergy status to sulfonamides; Z88.6 Allergy status to analgesic agent; Z90.710 Acquired absence of both cervix and uterus
CPT/HCPCS: 99284; 96374; 36415; 87086; 85025; 80053; 81001; 76380; J2550

== ENCOUNTER 2017-08-29 17:31 | Emergency (ER) | payer MEDICARE, MEDICAID ==
[2017-08-29] MEDS ORDERED: ACETAMINOPHEN 325 MG TABLET PO ONE (18:57)
--- NOTE | 2017-08-29 18:59 | ER Document Report ---
ED General - General Chief Complaint: Shortness Of Breath Stated Complaint: SHORTNESS OF BREATH Time Seen by Provider: 08/29/17 18:21 Mode of Arrival: Ambulatory Information source: Patient Notes: 52-year-old female history of CVA has been seen multiple times for chest pain in the past presents with complaints of chest pain. Patient notes that midsternal radiating down left arm up left neck. Denies any fevers or chills denies any nausea vomiting or diarrhea TRAVEL OUTSIDE OF THE [place] IN LAST 30 DAYS: No - HPI Onset: Just prior to arrival Onset/Duration: Sudden Quality of pain: Pressure Severity: Mild Pain Level: 1 Associated symptoms: Chest pain Exacerbated by: Denies Relieved by: Denies Similar symptoms previously: Yes Recently seen / treated by doctor: Yes - Related Data Allergies/Adverse Reactions: hydromorphone [From Dilaudid] Allergy (Verified 08/29/17 18:39) Iodinated Contrast- Oral and IV Dye Allergy (Verified 08/29/17 18:39) ketorolac [From Toradol] Allergy (Verified 08/29/17 18:39) meperidine [From Demerol] Allergy (Verified 08/29/17 18:39) ondansetron [From Zofran (as hydrochloride)] Allergy (Verified 08/29/17 18:39) Sulfa (Sulfonamide Antibiotics) Allergy (Verified 08/29/17 18:39) sulfamethoxazole [From Septra] Allergy (Verified 08/29/17 18:39) trimethoprim [From Septra] Allergy (Verified 08/29/17 18:39) Past Medical History - Social History Smoking Status: Unknown if Ever Smoked Cigarette use (# per day): No Chew tobacco use (# tins/day): No Smoking Education Provided: No Frequency of alcohol use: None Drug Abuse: None Family History: Arthritis, CAD, CVA Patient has suicidal ideation: No Patient has homicidal ideation: No - Past Medical History Cardiac Medical History: Reports: Hx Congestive Heart Failure, Hx DVT, Hx Hypercholesterolemia, Hx Hypertension Denies: Hx Pulmonary Embolism Pulmonary Medical History: Reports: Hx COPD, Hx Pneumonia - x2 Neurological Medical History: Reports: Hx Cerebrovascular Accident, Hx Seizures Endocrine Medical History: Reports: Hx Hypothyroidism. Denies: Hx Diabetes Mellitus Type 1, Hx Diabetes Mellitus Type 2, Hx Hyperthyroidism Renal/ Medical History: Reports: Hx Kidney Stones. Denies: Hx Peritoneal Dialysis Malignancy Medical History: Reports: Hx Breast Cancer, Hx Lymphoma GI Medical History: Reports: Hx Gastroesophageal Reflux Disease. Denies: Hx Cirrhosis, Hx Hepatitis Musculoskeltal Medical History: Reports Hx Arthritis Psychiatric Medical History: Reports: Hx Bipolar Disorder, Hx Depression Infectious Medical History: Denies: Hx Hepatitis Past Surgical History: Reports: Hx Appendectomy, Hx Cardiac Catheterization, Hx Genitourinary Surgery - Bladder tack, Hx Hysterectomy, Hx Kidney (Renal Surgery ) - stone removal and stent placed, Hx Tubal Ligation. Denies: Hx Mastectomy - lumpectomy - Immunizations Immunizations up to date: Yes Hx Diphtheria, Pertussis, Tetanus Vaccination: Yes Hx Pneumococcal Vaccination: 10/05/09 Review of Systems - Review of Systems Notes: REVIEW OF SYSTEMS: CONSTITUTIONAL : Denies fever, chills, or sweats. Denies recent illness. EENT: Denies eye, ear, throat, or mouth pain or symptoms. Denies nasal or sinus congestion or discharge. Denies throat, tongue, or mouth swelling or difficulty swallowing. CARDIOVASCULAR: Admits chest pain rating to the neck RESPIRATORY: Denies cough, cold, or chest congestion. Denies shortness of breath, difficulty breathing, or wheezing. GASTROINTESTINAL: Denies abdominal pain or distention. Denies nausea, vomiting , or diarrhea. Denies blood in vomitus, stools, or per rectum. Denies black, tarry stools. Denies constipation. GENITOURINARY: Denies difficulty urinating, painful urination, burning, frequency, blood in urine, or discharge. FEMALE GENITOURINARY: Denies vaginal bleeding, heavy or abnormal periods, irregular periods. Denies vaginal discharge or odor. MUSCULOSKELETAL: Denies back or neck pain or stiffness. Denies joint pain or swelling. SKIN: Denies rash, lesions or sores. HEMATOLOGIC : Denies easy bruising or bleeding. LYMPHATIC: Denies swollen, enlarged glands. NEUROLOGICAL: Denies confusion or altered mental status. Denies passing out or loss of consciousness. Denies dizziness or lightheadedness. Denies headache. Denies weakness or paralysis or loss of use of either side. Denies problems with gait or speech. Denies sensory loss, numbness, or tingling. Denies seizures. PSYCHIATRIC: Denies anxiety or stress. Denies depression, suicidal ideation, or homicidal ideation. ALL OTHER SYSTEMS REVIEWED AND NEGATIVE. PHYSICAL EXAMINATION: GENERAL: Well-appearing, well-nourished and in no acute distress. HEAD: Atraumatic, normocephalic. EYES: Pupils equal round and reactive to light, extraocular movements intact, conjunctiva are normal. ENT: Nares patent, oropharynx clear without exudates. Moist mucous membranes. NECK: Normal range of motion, supple without lymphadenopathy LUNGS: Breath sounds clear to auscultation bilaterally and equal. No wheezes rales or rhonchi. HEART: Regular rate and rhythm without murmurs ABDOMEN: Soft, nontender, nondistended abdomen. No guarding, no rebound. No masses appreciated. Female : deferred Musculoskeletal: Normal range of motion, no pitting or edema. No cyanosis. NEUROLOGICAL: Slurred speech chronically secondary to CVA PSYCH: Normal mood, normal affect. SKIN: Warm, Dry, normal turgor, no rashes or lesions noted. Dictation was performed using [employer] voice recognition software Physical Exam - Vital signs Vitals: Pulse Ox 93 08/29/17 17:39 Course - Re-evaluation Re-evalutation: 08/29/17 18:59 Cardiac workup pending, appears patient has had multiple similar workups in the past, 08/30/17 03:40 Patient remained chest pain-free, 2 sets of cardiac enzymes were performed which were negative, she wishes to be discharged, I will discharge her at her request with understand that this is not a complete cardiac workup and that she must return immediately if there are any other concerns After performing a Medical Screening Examination, I estimate there is LOW risk for RUPTURED ESOPHAGUS, PNEUMOTHORAX, PULMONARY EMBOLISM, ACUTE CORONARY SYNDROME, OR THORACIC AORTIC DISSECTION, thus I consider the discharge disposition reasonable. I have reevaluated this patient multiple times and no significant life threatening changes are noted. The patient and I have discussed the diagnosis and risks, and we agree with discharging home with close follow-up. We also discussed returning to the Emergency Department immediately if new or worsening symptoms occur. We have discussed the symptoms which are most concerning (e.g., bloody sputum, worsening pain or shortness of breath) that necessitate immediate return. - Vital Signs Vital signs: Temp Pulse Resp BP Pulse Ox 98 F 13 90/67 L 93 08/29/17 22:01 08/29/17 23:01 08/29/17 23:01 08/29/17 23:01 - Laboratory Result Diagrams: 08/29/17 19:00 08/29/17 19:00 Laboratory results interpreted by me: 08/29/17 08/29/17 19:00 19:00 Hct 34.7 L RDW 14.4 H Eosinophils % 6.7 H Potassium 3.5 L Chloride 110 H Total Bilirubin 0.1 L AST 11 L Alkaline Phosphatase 128 H Total Protein 5.6 L Albumin 3.2 L - Diagnostic Test Radiology reviewed: Image reviewed, Reports reviewed Discharge - Discharge Clinical Impression: Chest pain Qualifiers: Chest pain type: unspecified Qualified Code(s): R07.9 - Chest pain, unspecified Condition: Stable Disposition: HOME, SELF-CARE Instructions: Chest Pain of Unclear Cause ([facility]) Additional Instructions: Follow up with your physician tomorrow for further care or return to the ED IMMEDIATELY if symptoms worsen or new concerns occur. If you cannot afford to follow up with your primary care physician a list of low cost clinics have been provided at the end of your discharge papers as well.
--- NOTE | 2017-08-29 19:02 | RADIOLOGY REPORT (SQ) ---
EXAM DESCRIPTION: CHEST SINGLE VIEW COMPLETED DATE/TIME: 08/29/2017 6:52 pm REASON FOR STUDY: chest pain COMPARISON: 07/17/2017 EXAM PARAMETERS: NUMBER OF VIEWS: One view. TECHNIQUE: Single frontal radiographic view of the chest acquired. RADIATION DOSE: NA LIMITATIONS: None. FINDINGS: LUNGS AND PLEURA: No opacities, masses or pneumothorax. No pleural effusion. MEDIASTINUM AND HILAR STRUCTURES: No masses. Contour normal. HEART AND VASCULAR STRUCTURES: Heart normal in size. Normal vasculature. BONES: No acute findings. HARDWARE: None in the chest. OTHER: No other significant finding. IMPRESSION: NO ACUTE RADIOGRAPHIC FINDING IN THE CHEST. TECHNICAL DOCUMENTATION: JOB ID: [id number] [employer]- All Rights Reserved
[2017-08-29 19:28] LABS: ABSOLUTE EOSINOPHILS # (AUTO) 0.5 10^3/uL (0.0-0.6); ABSOLUTE LYMPHOCYTES (AUTO) 2.5 10^3/uL (0.5-4.7); ABSOLUTE MONOCYTES (AUTO) 0.5 10^3/uL (0.1-1.4); ABSOLUTE NEUT (AUTO) 3.4 10^3/uL (1.7-8.2); BASOPHILS % (AUTO) 0.2 % (0-2); EOSINOPHILS % (AUTO) 6.7 % (0-6); HEMATOCRIT 34.7 % (36.0-47.0); HEMOGLOBIN 12.2 g/dL (12.0-15.5); HGB HCT DIFFERENCE 1.9; MEAN CORPUSCULAR HEMOGLOBIN 31.9 pg (27.0-33.4); MEAN CORPUSCULAR VOLUME 91 fl (80-97); MONOCYTES % (AUTO) 7.7 % (3-13); RED BLOOD COUNT 3.82 10^6/uL (3.72-5.28); RED CELL DISTRIBUTION WIDTH 14.4 % (11.5-14.0); SEGMENTED NEUTROPHILS % (AUTO) 49.4 % (42-78); WHITE BLOOD COUNT 6.9 10^3/uL (4.0-10.5)
[2017-08-29] MEDS ORDERED: METOCLOPRAMIDE HCL INJ/PF 10 MG/2 ML SDV ONE (19:47)
[2017-08-29 19:53] LABS: ALANINE AMINOTRANSFERASE 18 U/L (9-52); ALBUMIN 3.2 g/dL (3.5-5.0); ALKALINE PHOSPHATASE 128 U/L (38-126); ANION GAP 12 (5-19); ASPARTATE AMINO TRANSFERASE 11 U/L (14-36); BILIRUBIN,DIRECT 0.1 mg/dL (0.0-0.4); BILIRUBIN,TOTAL 0.1 mg/dL (0.2-1.3); BLOOD UREA NITROGEN 11 mg/dL (7-20); CALCIUM 8.9 mg/dL (8.4-10.2); CARBON DIOXIDE 23 mmol/L (22-30); CHLORIDE 110 mmol/L (98-107); CREATINE KINASE 65 U/L (30-135); CREATININE RESULT 0.77 mg/dL (0.52-1.25); GLUCOSE 104 mg/dL (75-110); POTASSIUM 3.5 mmol/L (3.6-5.0); TOTAL PROTEIN 5.6 g/dL (6.3-8.2)
[2017-08-29] MEDS ORDERED: METOCLOPRAMIDE HCL INJ/PF 10 MG/2 ML SDV IV ONE (19:59)
[2017-08-29 20:04] LABS: CREATINE KINASE MB 0.61 ng/mL (<4.55)
[2017-08-29 20:05] LABS: TROPONIN I < 0.012 ng/mL
[2017-08-29 23:10] VITALS: BP 90/67
--- NOTE | 2017-08-31 05:59 | EKG REPORT ---
SEVERITY:- NORMAL ECG - SINUS RHYTHM : Confirmed by: Wanda Ramirez MD 31-Aug-2017 05:58:15
== END 2017-08-29 23:10 | disposition home or self-care (01) ==
LOC: ER 17:31
DX: R06.02 Shortness of breath (principal); R07.9 Chest pain, unspecified; I50.9 Heart failure, unspecified; E78.00 Pure hypercholesterolemia, unspecified; I11.0 Hypertensive heart disease with heart failure; J44.9 Chronic obstructive pulmonary disease, unspecified; E03.9 Hypothyroidism, unspecified; Z88.6 Allergy status to analgesic agent; Z88.2 Allergy status to sulfonamides; Z86.718 Personal history of other venous thrombosis and embolism; Z87.442 Personal history of urinary calculi; Z85.3 Personal history of malignant neoplasm of breast
CPT/HCPCS: 93005; 99285; 96374; 36415; 87040; 82553; 82550; 85025; 80053; 84484; 83880; 71010; 93010; A9270; J2765

== ENCOUNTER 2017-09-08 21:15 | Emergency (ER) | payer MEDICARE, MEDICAID ==
[2017-09-08] MEDS ORDERED: NORMAL SALINE 1000 ML 1,000 ML IV ONE (21:25)
[2017-09-08] MEDS ORDERED: NALOXONE HCL INJ 2 MG/2 ML DISP.SYRIN IV ONE (21:32)
--- NOTE | 2017-09-08 21:32 | ER Document Report ---
ED General <SEBASTIAN FIGUEROA - Last Filed: 09/09/17 06:40> - General TRAVEL OUTSIDE OF THE [place]. IN LAST 30 DAYS: No <SEBASTIAN CANNON - Last Filed: 09/09/17 19:32> - General Stated Complaint: POSSIBLE POST ARREST Time Seen by Provider: 09/08/17 21:24 Notes: Patient is a 52-year-old female with a past history of chronic opiate abuse and dependence, recurrent nephrolithiasis, COPD, who presents after having a cardiac arrest. History is limited and as provided by EMS. The patient apparently walked into the living room where family members were sitting, stated she could not breathe, and then dropped down to the ground. 911 was contacted but apparently the family on scene was extremely belligerent with the dispatch workers so please had to arrived secure the scene before EMS could begin to resuscitate the patient. They found the patient to be in asystole, hypoxic, not ventilating. ACLS protocols were found following the patient was subsequently transported to the emergency department after intubation. (SEBASTIAN CANNON) - Related Data Allergies/Adverse Reactions: hydromorphone [From Dilaudid] Allergy (Verified 08/29/17 18:39) Iodinated Contrast- Oral and IV Dye Allergy (Verified 08/29/17 18:39) ketorolac [From Toradol] Allergy (Verified 08/29/17 18:39) meperidine [From Demerol] Allergy (Verified 08/29/17 18:39) ondansetron [From Zofran (as hydrochloride)] Allergy (Verified 08/29/17 18:39) Sulfa (Sulfonamide Antibiotics) Allergy (Verified 08/29/17 18:39) sulfamethoxazole [From Septra] Allergy (Verified 08/29/17 18:39) trimethoprim [From Septra] Allergy (Verified 08/29/17 18:39) Past Medical History - General Information source: Emergency Med Personnel Cannot obtain history due to: Intubated - Social History Smoking Status: Current Every Day Smoker Family History: Arthritis, CAD, CVA - Past Medical History Cardiac Medical History: Reports: Hx Congestive Heart Failure, Hx DVT, Hx Hypercholesterolemia, Hx Hypertension Denies: Hx Pulmonary Embolism Pulmonary Medical History: Reports: Hx COPD, Hx Pneumonia - x2 Neurological Medical History: Reports: Hx Cerebrovascular Accident, Hx Seizures Endocrine Medical History: Reports: Hx Hypothyroidism. Denies: Hx Diabetes Mellitus Type 1, Hx Diabetes Mellitus Type 2, Hx Hyperthyroidism Renal/ Medical History: Reports: Hx Kidney Stones. Denies: Hx Peritoneal Dialysis Malignancy Medical History: Reports: Hx Breast Cancer, Hx Lymphoma GI Medical History: Reports: Hx Gastroesophageal Reflux Disease. Denies: Hx Cirrhosis, Hx Hepatitis Musculoskeltal Medical History: Reports Hx Arthritis Psychiatric Medical History: Reports: Hx Bipolar Disorder, Hx Depression Infectious Medical History: Denies: Hx Hepatitis Past Surgical History: Reports: Hx Appendectomy, Hx Cardiac Catheterization, Hx Genitourinary Surgery - Bladder tack, Hx Hysterectomy, Hx Kidney (Renal Surgery ) - stone removal and stent placed, Hx Tubal Ligation. Denies: Hx Mastectomy - lumpectomy - Immunizations Immunizations up to date: Yes Hx Diphtheria, Pertussis, Tetanus Vaccination: Yes Hx Pneumococcal Vaccination: 10/05/09 <SEBASTIAN CANNON - Last Filed: 09/09/17 19:32> Review of Systems - Review of Systems -: Yes ROS unobtainable due to patient's medical condition <SEBASTIAN CANNON - Last Filed: 09/09/17 19:32> Physical Exam <SEBASTIAN FIGUEROA - Last Filed: 09/09/17 06:40> - Vital signs Interpretation: Normal <SEBASTIAN CANNON - Last Filed: 09/09/17 19:32> - Vital signs Vitals: Resp Pulse Ox 17 98 09/08/17 21:19 09/08/17 21:19 Notes: PHYSICAL EXAMINATION: GENERAL: Intubated, unresponsive HEAD: Atraumatic, normocephalic. EYES: Pupils are 5 mm, fixed and dilated ENT: ET tube and OG tube in place NECK: Supple without lymphadenopathy LUNGS: Breath sounds clear to auscultation bilaterally and equal. No wheezes rales or rhonchi. HEART: Regular rate and rhythm without murmurs ABDOMEN: No abdominal distention or trauma EXTREMITIES: No pitting or edema. No cyanosis. NEUROLOGICAL: Pupils are fixed and dilated at 5 mm. No corneal response. No cough, no gag. No response to noxious stimuli in any of the 4 extremities. Spontaneous ventilations are present PSYCH: GCS 3 T SKIN: Cool skin (SEBASTIAN CANNON) Course - Laboratory Result Diagrams: 09/08/17 21:30 09/08/17 21:30 <SEBASTIAN FIGUEROA - Last Filed: 09/09/17 06:40> - Laboratory Result Diagrams: 09/08/17 21:30 09/08/17 21:30 - Diagnostic Test Radiology reviewed: Reports reviewed <SEBASTIAN CANNON - Last Filed: 09/09/17 19:32> - Re-evaluation Re-evalutation: 09/09/17 06:40 I reevaluated the patient. The patient continues to be on the vent. She is breathing about 20 times a minute over the vent. She does not appear to be in any distress. Vital signs are stable. I did speak with the family answer any further questions and informed them were still awaiting transfer to [facility]. Family has no further questions at this time and continue to be agreeable to plan. (SEBASTIAN FIGUEROA) 09/08/17 21:29 Patient presents after an acute arrest. There was apparently a 20 minute delay on scene prior to initiation of compressions as the family was apparently quite combative with dispatch and police had to arrive first before EMS could begin resuscitative efforts. When they first found the patient, she was apneic, asystolic, cyanotic and unresponsive. Patient was intubated, 2 rounds of ACLS protocol were performed with associated use of epinephrine. Patient did have return of spontaneous circulation has been a normal sinus rhythm since that time. On arrival, patient's only neurological function on exam is intermittent spontaneous respirations. Patient has no corneal reflex, no cough, no gag, no pupillary response, no response to noxious stimuli in any extremity. Her lung sounds are clear bilaterally, no wheezing or diminished air movement. In route , patient's blood pressure is apparently somewhat soft and so she was started on dopamine. Her initial blood pressure on arrival is in the 130s systolic so dopamine has been held. Will proceed with labs, CXR, CT head and c-spine as patient apparently collapsed on scene striking her head. Given patient's patient is critically ill and require frequent reassessments. 09/08/17 21:48 Patient continues to hold her pressures without difficulty off of dopamine pressures 163 104. She remains with a regular rhythm, rate 89, saturating well on the ventilator. Chest x-ray does not show any evidence of a pneumothorax, ET tube is in the appropriate position. 2 mg of naloxone was given empirically in case this could be a case of opiate overdose and did not have any effect. The clinical history is also not very consistent with an opiate overdose as the etiology of her arrest. At this point I am uncertain of the cause of the patient's initial arrest. Initial diagnostic considerations included a possible obstructive lung pathology as patient does have a history of COPD and asthma. This to be a hypoxic arrest. However this does not fit with patient's presentation and she has no wheezing or tight air movement on examination. She bags very easily and did not receive any form of nebulizers or steroids that would have improved her lung examination by time of arrival. A pulmonary embolus is another additional consideration given the patient was complaining of shortness of breath and then had a sudden asystolic arrest. Again this would still be somewhat atypical as patient came back after just 2 rounds of CPR and has remained without any further hypotension. However will obtain a CT of the chest to further exclude. ACS is also in the differential as patient does have a known history of coronary artery disease but her EKG does not show any significant ST changes and not even any T-wave inversions. We will be sending troponin assay testing to further clarify although I do expect this to be elevated as patient apparently had 20 minutes of downtime. Spontaneous intracranial bleed would again be another consideration. However to cause an asystolic arrest one would expect a very large intracranial bleed with associated brainstem hemorrhage and herniation. I would not expect the patient to be having spontaneous respirations in this context or be hemodynamically stable. However, again to be complete will obtain a CT of the head to further exclude this diagnosis. A metabolic derangement such as severe hyperkalemia, hyponatremia are also diagnostic considerations but again there are no EKG changes to suggest either of these diagnoses at this time. Pending labs and imaging at this time. 09/08/17 22:05 Patient has a core temperature of 94.4F via a temperature Jaime catheter. Active rewarming by a Bare hugger has been initiated. I anticipate that this is secondary to patient having a prolonged downtime. 09/08/17 22:31 I have been informed that patient may have a contrast allergy. Unfortunately in the system there is no listed information about what patient specific reaction is and ideally I really do need a CTA of her chest to exclude PE as etiology of her asystolic arrest. A VQ scan would likely not be helpful in this context as she is currently intubated and may have baseline lung pathology which often reduces the sensitivity of these tests. I have spoken with the father at the bedside and he likewise is uncertain of what her reaction is to contrast material. Will premedicate the patient with steroids and Benadryl and have a nurse standing in the radiology suite with epinephrine in case patient does begin to demonstrate any form of reaction. 09/09/17 00:22 Patient continues to be hemodynamically stable. CT scans are unremarkable with exception of the CT the head which shows findings that I was concerned we would see based on her clinical history of a diffuse ischemic hypoxic injury. There is no evidence of PE on the CT of the chest. Of note, patient had no difficulty tolerating the IV contrast. I have contacted [facility] and they do not have any ICU beds available. I then contacted [facility] and I am awaiting hear back. 09/09/17 00:41 Patient has been accepted at [facility] by Dr. Camara the supervisor kennel I have updated the patient's father at the bedside about the patient's grave prognosis and my elevated concern that she may proceed to brain . 09/09/17 02:25 Patient continues to be hemodynamically stable, is actually becoming febrile at this time temp progressing to 100.2 after removal of the bear hugger when patient began to warm to 97. Suspect autonomous disregulation in the setting of an anoxic brain injury. However if patient does become truly febrile will obtain cultures and begin empiric antibiotic coverage 09/09/17 04:06 I have discussed the patient's clinical condition at length with the patient's daughter Mindi Neville who is her next of kin. She reports that she very much so doubts the initial provided history by the person at the scene and states that she suspected patient likely had a heroin overdose and this would fit much more appropriate with the patient's presentation. The patient's tox screen is normal , it is completely unreliable for accurately screening for opiate overdoses at this point given there is a dominance of fentanyl in the [place] area which will not show up on tox screen. The family has elected to make the patient a DNR at this point. Mindi's number is [phone] 09/09/17 19:32 (SEBASTIAN CANNON) - Vital Signs Vital signs: Temp Pulse Resp BP Pulse Ox 102.1 F H 20 165/115 H 100 09/09/17 16:25 09/09/17 16:25 09/09/17 16:25 09/09/17 16:25 - Laboratory Laboratory results interpreted by me: 09/08/17 09/08/17 09/08/17 21:23 21:30 21:30 RDW Monocytes % VBG pH 7.28 L VBG pCO2 VBG HCO3 16.6 L Carbon Dioxide 16 L Anion Gap 20 H Est GFR (Non-Af Amer) 53 L Glucose 294 H POC Glucose 286 H AST 46 H Alkaline Phosphatase 160 H Urine Protein Urine Glucose (UA) Urine Blood Salicylates Acetaminophen 09/08/17 09/08/17 09/08/17 21:30 21:30 21:50 RDW 14.9 H Monocytes % 1.5 L VBG pH VBG pCO2 VBG HCO3 Carbon Dioxide Anion Gap Est GFR (Non-Af Amer) Glucose POC Glucose AST Alkaline Phosphatase Urine Protein 100 H Urine Glucose (UA) >=500 H Urine Blood LARGE H Salicylates < 1.0 L Acetaminophen < 10 L 09/09/17 02:55 RDW Monocytes % VBG pH VBG pCO2 33.9 L VBG HCO3 19.7 L Carbon Dioxide Anion Gap Est GFR (Non-Af Amer) Glucose POC Glucose AST Alkaline Phosphatase Urine Protein Urine Glucose (UA) Urine Blood Salicylates Acetaminophen Critical Care Note <SEBASTIAN FIGUEROA - Last Filed: 09/09/17 06:40> - Critical Care Note Total time excluding time spent on procedures (mins): 76 <SEBASTIAN CANNON - Last Filed: 09/09/17 19:32> - Critical Care Note Comments: Critical care time spent obtaining history from patient or surrogate, discussions with consultants, development of treatment plan with patient or surrogate, evaluation of patient's response to treatment, examination of patient , ordering and performing treatments and interventions, ordering and review of laboratory studies, re-evaluation of patient's condition, ordering and review of radiographic studies and review of old charts (SEBASTIAN CANNON) Discharge <SEBASTIAN FIGUEROA - Last Filed: 09/09/17 06:40> <SEBASTIAN CANNON - Last Filed: 09/09/17 19:32> - Discharge Clinical Impression: Anoxic brain injury, Asystolic arrest, Hyperglycemia Condition: Critical Disposition:
[2017-09-08] MEDS ORDERED: NALOXONE HCL INJ 2 MG/2 ML DISP.SYRIN ONE (21:33)
[2017-09-08 21:51] LABS: VENOUS BLOOD BASE EXCESS -9.3 mmol/L; VENOUS BLOOD HCO3 16.6 mmol/L (20-32); VENOUS BLOOD PCO2 36.4 mmHg (35-63); VENOUS BLOOD PH 7.28 (7.30-7.42)
--- NOTE | 2017-09-08 21:59 | RADIOLOGY REPORT (SQ) ---
EXAM DESCRIPTION: CHEST SINGLE VIEW COMPLETED DATE/TIME: 09/08/2017 9:40 pm REASON FOR STUDY: post intubation COMPARISON: 08/29/2017 EXAM PARAMETERS: NUMBER OF VIEWS: One view. TECHNIQUE: Single frontal radiographic view of the chest acquired. RADIATION DOSE: NA LIMITATIONS: None. FINDINGS: LUNGS AND PLEURA: No opacities, masses or pneumothorax. No pleural effusion. Small nodula r density in the left upper lung field appears stable. MEDIASTINUM AND HILAR STRUCTURES: No masses. Contour normal. HEART AND VASCULAR STRUCTURES: Heart normal in size. Normal vasculature. BONES: Endotracheal tube is identified with its tip the level of the thoracic inlet. NG tube is seen with its tip in the left upper quadrant which appears to be just distal to the GE junction. HARDWARE: None in the chest. OTHER: No other significant finding. IMPRESSION: No acute consolidations or pleural effusions. Other findings as noted above TECHNICAL DOCUMENTATION: JOB ID: [id number] [employer]- All Rights Reserved
[2017-09-08 22:02] LABS: ABSOLUTE EOSINOPHILS # (AUTO) 0.2 10^3/uL (0.0-0.6); ABSOLUTE MONOCYTES (AUTO) 0.1 10^3/uL (0.1-1.4); ABSOLUTE NEUT (AUTO) 3.8 10^3/uL (1.7-8.2); BASOPHILS % (AUTO) 0.8 % (0-2); EOSINOPHILS % (AUTO) 3.1 % (0-6); HEMATOCRIT 39.1 % (36.0-47.0); HEMOGLOBIN 13.4 g/dL (12.0-15.5); HGB HCT DIFFERENCE 1.1; LYMPHOCYTES % (AUTO) 32.4 % (13-45); MEAN CORPUSCULAR HEMOGLOBIN 31.8 pg (27.0-33.4); MEAN CORPUSCULAR HGB CONC 34.1 g/dL (32.0-36.0); MEAN CORPUSCULAR VOLUME 93 fl (80-97); MONOCYTES % (AUTO) 1.5 % (3-13); RED BLOOD COUNT 4.19 10^6/uL (3.72-5.28); RED CELL DISTRIBUTION WIDTH 14.9 % (11.5-14.0); SEGMENTED NEUTROPHILS % (AUTO) 62.2 % (42-78); WHITE BLOOD COUNT 6.1 10^3/uL (4.0-10.5)
[2017-09-08 22:06] LABS: ALANINE AMINOTRANSFERASE 37 U/L (9-52); ALKALINE PHOSPHATASE 160 U/L (38-126); ASPARTATE AMINO TRANSFERASE 46 U/L (14-36); BILIRUBIN,DIRECT 0.3 mg/dL (0.0-0.4); BILIRUBIN,TOTAL 0.3 mg/dL (0.2-1.3); BLOOD UREA NITROGEN 12 mg/dL (7-20); CALCIUM 9.2 mg/dL (8.4-10.2); CREATININE RESULT 1.09 mg/dL (0.52-1.25); GLUCOSE 294 mg/dL (75-110); TOTAL PROTEIN 6.8 g/dL (6.3-8.2)
[2017-09-08 22:16] LABS: CARBON DIOXIDE 16 mmol/L (22-30); CHLORIDE 107 mmol/L (98-107); POTASSIUM 4.1 mmol/L (3.6-5.0); SODIUM 143.4 mmol/L (137-145)
[2017-09-08 22:18] LABS: ANION GAP 20 (5-19); TROPONIN I < 0.012 ng/mL
[2017-09-08] MEDS ORDERED: DIPHENHYDRAMINE HCL 50 MG/ML VIAL IV ONE (22:30)
[2017-09-08] MEDS ORDERED: METHYLPREDNISOLONE INJ 125 MG/2 ML SDV IV ONE (22:30)
[2017-09-08] MEDS ORDERED: FENTANYL CITRATE INJ/PF 100 MCG/2 ML AMPUL ONE (22:40)
[2017-09-08] MEDS ORDERED: FENTANYL CITRATE INJ/PF 100 MCG/2 ML AMPUL IV ONE (23:26)
--- NOTE | 2017-09-08 23:56 | RADIOLOGY REPORT (SQ) ---
EXAM DESCRIPTION: CT HEAD WITHOUT CLINICAL HISTORY: 52 years Female, fall, trauma COMPARISON: 05/20/2017. 01/18/2017, report only. 05/03/2015, report only. TECHNIQUE: This exam was performed according to our departmental dose-optimization program, which includes automated exposure control, adjustment of the mA and/or kV according to patient size and/or use of iterative reconstruction technique. No contrast. FINDINGS: Partially imaged endotracheal and nasogastric tubes. Diminished bolton-white differentiation and mild sulcal effacement new compared with prior CT from May 2017. Relative nonspecific high attenuation of the tentorium cerebelli. Mild interval diminished ventricular size with transverse diameter of the frontal horn measuring 0.5 cm compared with 0.7 cm on prior exam. No midline shift. IMPRESSION: Global hypoxic ischemic injury pattern. Discussed with Dr. Joyce Alexandra, 11:50pm, 09/08/17.
--- NOTE | 2017-09-08 23:59 | RADIOLOGY REPORT (SQ) ---
EXAM DESCRIPTION: CT CERVICAL SPINE WITHOUT CLINICAL HISTORY: 52 years Female, fall, trauma COMPARISON: 05/20/2017. TECHNIQUE: This exam was performed according to our departmental dose-optimization program, which includes automated exposure control, adjustment of the mA and/or kV according to patient size and/or use of iterative reconstruction technique. FINDINGS: Moderate disc desiccation between the C5 and C7 levels. Mild spinal and foraminal canal stenoses. Partially imaged enteric and endotracheal tubes. Mild spondylosis between the C2 and T1 levels. Mild/moderate lateral axial Artem arthritis. IMPRESSION: Intact cervical spine. Abnormal CT of the brain reported separately.
--- NOTE | 2017-09-09 00:13 | RADIOLOGY REPORT (SQ) ---
EXAM DESCRIPTION: CTA CHEST CLINICAL HISTORY: 52 years Female, eval pe, post-arrest COMPARISON: CR, same day. CT, 08/26/2017, report only. TECHNIQUE: This exam was performed according to our departmental dose-optimization program, which includes automated exposure control, adjustment of the mA and/or kV according to patient size and/or use of iterative reconstruction technique. FINDINGS: Mucous and bilateral main bronchi. Adequate appearing endotracheal tube. Enteric tube tip just below gastroesophageal junction. Moderate bandlike consolidation of the superior segment of the left lower lobe. 1.1 cm likely right posterior hepatic hemangioma not definitively characterized. Cholelithiasis. Possible ectopic gallstone within an otherwise fluid filled splenic flexure of the colon. No intrabiliary gas identified in gallbladder is not collapsed so no gross evidence of gallstone ileus on partial imaging of the upper abdomen. No evidence of pulmonary emboli. No right ventricular strain. Normal lung volumes. Inferior neck, axillae, mediastinum, and remaining upper abdomen appear unremarkable. IMPRESSION: 1. Moderate bandlike consolidation/fibrosis of the left lower lobe. Infectious, inflammatory, neoplastic processes are in the differential diagnosis. 2. Cholelithiasis. Possible ectopic gallstone within the colon at the splenic flexure. The upper abdomen is partially imaged.
[2017-09-09 00:34] LABS: APPEARANCE,URINE CLEAR; BILIRUBIN,URINE NEGATIVE (NEGATIVE); GLUCOSE, URINE >=500 mg/dL (NEGATIVE); KETONES,URINE NEGATIVE (NEGATIVE); LEUKOCYTE ESTERASE,URINE NEGATIVE (NEGATIVE); NITRITE,URINE NEGATIVE (NEGATIVE); PROTEIN,URINE 100 mg/dL (NEGATIVE); URINE SPECIFIC GRAVITY 1.005; UROBILINOGEN,URINE NEGATIVE mg/dL (<2.0)
[2017-09-09 00:38] LABS: WBC,URINE 0-1 /HPF
[2017-09-09 01:08] LABS: ADD ON TESTING BLD IN LAB ACKNOWLEDGE
[2017-09-09 01:48] LABS: ALCOHOL < 10 mg/dL (NONE DETECTED)
[2017-09-09 02:04] LABS: URINE BARBITURATES SCREEN NEGATIVE; URINE METHADONE SCREEN NEGATIVE; URINE OPIATES LOW NEGATIVE; URINE PHENCYCLIDINE SCREEN NEGATIVE
[2017-09-09 03:08] LABS: VENOUS BLOOD BASE EXCESS -4.4 mmol/L; VENOUS BLOOD HCO3 19.7 mmol/L (20-32); VENOUS BLOOD PCO2 33.9 mmHg (35-63); VENOUS BLOOD PH 7.38 (7.30-7.42)
[2017-09-09] MEDS ORDERED: ACETAMINOPHEN SOLN 325 MG/10.15 ML UDCUP PO ONE (05:16)
[2017-09-09] MEDS ORDERED: ACETAMINOPHEN SOLN 325 MG/10.15 ML UDCUP NG ONE (05:18)
--- NOTE | 2017-09-09 07:09 | EKG REPORT ---
SEVERITY:- BORDERLINE ECG - SINUS TACHYCARDIA BORDERLINE PROLONGED QT INTERVAL : Confirmed by: Lamin Auguste 09-Sep-2017 17:39:05
--- NOTE | 2017-09-09 09:08 | ER Document Report ---
ED Medical Screen (RME) - General Chief Complaint: Cardiac Arrest Stated Complaint: POSSIBLE POST ARREST Time Seen by Provider: 09/08/17 21:24 TRAVEL OUTSIDE OF THE [place] IN LAST 30 DAYS: No - Related Data Allergies/Adverse Reactions: hydromorphone [From Dilaudid] Allergy (Verified 08/29/17 18:39) Iodinated Contrast- Oral and IV Dye Allergy (Verified 08/29/17 18:39) ketorolac [From Toradol] Allergy (Verified 08/29/17 18:39) meperidine [From Demerol] Allergy (Verified 08/29/17 18:39) ondansetron [From Zofran (as hydrochloride)] Allergy (Verified 08/29/17 18:39) Sulfa (Sulfonamide Antibiotics) Allergy (Verified 08/29/17 18:39) sulfamethoxazole [From Septra] Allergy (Verified 08/29/17 18:39) trimethoprim [From Septra] Allergy (Verified 08/29/17 18:39) Past Medical History - Social History Family history: Arthritis, Malignancy, CAD, CVA, DM, Hyperlipidemia, Hypertension, Thyroid Disfunction - Past Medical History Cardiac Medical History: Reports: Hx Congestive Heart Failure, Hx DVT, Hx Hypercholesterolemia, Hx Hypertension Denies: Hx Pulmonary Embolism Pulmonary Medical History: Reports: Hx COPD, Hx Pneumonia - x2 Neurological Medical History: Reports: Hx Cerebrovascular Accident, Hx Seizures Endocrine Medical History: Reports: Hx Hypothyroidism. Denies: Hx Diabetes Mellitus Type 1, Hx Diabetes Mellitus Type 2, Hx Hyperthyroidism Renal/ Medical History: Reports: Hx Kidney Stones. Denies: Hx Peritoneal Dialysis Malignancy Medical History: Reports: Hx Breast Cancer, Hx Lymphoma GI Medical History: Reports: Hx Gastroesophageal Reflux Disease. Denies: Hx Cirrhosis, Hx Hepatitis Musculoskeltal Medical History: Reports Hx Arthritis Psychiatric Medical History: Reports: Hx Bipolar Disorder, Hx Depression Infectious Medical History: Denies: Hx Hepatitis Past Surgical History: Reports: Hx Appendectomy, Hx Cardiac Catheterization, Hx Genitourinary Surgery - Bladder tack, Hx Hysterectomy, Hx Kidney (Renal Surgery ) - stone removal and stent placed, Hx Tubal Ligation. Denies: Hx Mastectomy - lumpectomy - Immunizations Immunizations up to date: Yes Hx Diphtheria, Pertussis, Tetanus Vaccination: Yes Physical Exam - Vital signs Vitals: Resp Pulse Ox 17 98 09/08/17 21:19 09/08/17 21:19 Course - Re-evaluation Re-evalutation: 09/09/17 09:07 Patient seen and evaluated by me at 9 AM. She is waiting transfer to [facility]. She is stable on the ventilator with no spontaneous breathing or movement. Vital signs appear stable. Continue current course. No requests or interventions requested by nurses. - Vital Signs Vital signs: Temp Pulse Resp BP Pulse Ox 101.6 F H 12 164/99 H 100 09/09/17 08:55 09/09/17 08:55 09/09/17 08:55 09/09/17 08:55 - Laboratory Result Diagrams: 09/08/17 21:30 09/08/17 21:30 Laboratory results interpreted by me: 09/08/17 09/08/17 09/08/17 21:23 21:30 21:30 RDW Monocytes % VBG pH 7.28 L VBG pCO2 VBG HCO3 16.6 L Carbon Dioxide 16 L Anion Gap 20 H Est GFR (Non-Af Amer) 53 L Glucose 294 H POC Glucose 286 H AST 46 H Alkaline Phosphatase 160 H Urine Protein Urine Glucose (UA) Urine Blood Salicylates Acetaminophen 09/08/17 09/08/17 09/08/17 21:30 21:30 21:50 RDW 14.9 H Monocytes % 1.5 L VBG pH VBG pCO2 VBG HCO3 Carbon Dioxide Anion Gap Est GFR (Non-Af Amer) Glucose POC Glucose AST Alkaline Phosphatase Urine Protein 100 H Urine Glucose (UA) >=500 H Urine Blood LARGE H Salicylates < 1.0 L Acetaminophen < 10 L 09/09/17 02:55 RDW Monocytes % VBG pH VBG pCO2 33.9 L VBG HCO3 19.7 L Carbon Dioxide Anion Gap Est GFR (Non-Af Amer) Glucose POC Glucose AST Alkaline Phosphatase Urine Protein Urine Glucose (UA) Urine Blood Salicylates Acetaminophen Doctor's Discharge - Discharge Disposition: [facility]
[2017-09-09] MEDS ORDERED: MORPHINE SULFATE 10 MG/ML INJ IV ONE ×2 (15:14→16:32)
[2017-09-09] MEDS ORDERED: MIDAZOLAM 2 MG/2 ML INJ IV ONE (15:16)
[2017-09-09] MEDS ORDERED: ATROPINE SULFATE INJ 1 MG/1 ML VIAL IV ONE (15:17)
[2017-09-09 16:49] VITALS: BP 165/115
== END 2017-09-09 18:45 | disposition expired ==
LOC: ER 21:15
DX: G93.1 Anoxic brain damage, not elsewhere classified (principal); I46.9 Cardiac arrest, cause unspecified; R73.9 Hyperglycemia, unspecified; F17.200 Nicotine dependence, unspecified, uncomplicated; I50.9 Heart failure, unspecified; I11.0 Hypertensive heart disease with heart failure; J44.9 Chronic obstructive pulmonary disease, unspecified; E03.9 Hypothyroidism, unspecified; K21.9 Gastro-esophageal reflux disease without esophagitis; Z88.6 Allergy status to analgesic agent; Z88.2 Allergy status to sulfonamides; Z86.718 Personal history of other venous thrombosis and embolism; E78.00 Pure hypercholesterolemia, unspecified; Z86.73 Personal history of transient ischemic attack (TIA), and cerebral infarction without residual deficits; Z87.442 Personal history of urinary calculi; Z90.710 Acquired absence of both cervix and uterus
CPT/HCPCS: 93005; 99291; 99292; 36415; 87086; 82962; 80307 ×4; 85025; 80053; 81001; 84484; 83036; 82803; 83880; 71010; 70450; 71275; 72125; 93010; J2250; J0461; J1200; J3010; J2930; J2310; J7030; J3490